=== PATIENT | female | born 1965 | race Two or more races ===

== ENCOUNTER 2023-01-28 22:56 | Inpatient (IN) | payer MEDICAID, OTHER ==
[~2023-01-28] VITALS: Ht 175.3 cm; Wt 45.6 kg
[2023-01-29] MEDS ORDERED: HYDROcodone-ACET 10/325MG TAB PO ONE (00:45)
[2023-01-29] MEDS ORDERED: ONDANSETRON ODT 4 MG TAB PO ONE (00:45)
[2023-01-29 01:16] LABS: Hematocrit 32.8 % (36.0-46.0); Hemoglobin 11.2 g/dL (12.2-16.2); Mean Corpuscular Hemoglobin 30.2 pg (28.0-32.0); Mean Corpuscular Hgb Conc. 34.1 g/dL (32.0-36.0); Mean Corpuscular Volume 88.4 fL (80.0-100.0); Red Blood Cells 3.71 10^6/uL (4.0-5.20); Red Cell Distribution Width 13.4 % (11.8-14.3); White Blood Cell 5.5 10^3/uL (4.4-10.8)
[2023-01-29 01:30] LABS: Alanine Aminotransferase 10 U/L (7-40); Albumin 4.6 g/dL (3.2-4.8); Alkaline Phosphatase 90 U/L (46-116); Anion Gap 2.2 (5-15); Aspartate Aminotransferase < 8 U/L (13-40); BUN/Creatinine Ratio 13.4 (10.0-20.0); Bilirubin, Total 0.2 mg/dL (0.2-1.0); Blood Alcohol < 3.0 mg/dL (<10); Blood Urea Nitrogen 9 mg/dL (9-23); CRP High Sensitivity 0.14 mg/dL (<1.0); Calcium 9.7 mg/dL (8.5-10.1); Carbon Dioxide 26.8 mmol/L (20-30); Chloride 109 mmol/L (98-107); Glucose 85 mg/dL (74-106); Lipase 59 U/L (12-53); Potassium 3.6 mmol/L (3.5-5.1); Sodium 138 mmol/L (136-145); Total Protein 8.3 g/dL (5.7-8.2)
[2023-01-29 01:31] LABS: Band Neutrophils % (manual) 0; Basophils % (manual) 0 (0.0-2.0); Blast Cells 0; Eosinophils % (manual) 0 (0-7); Metamyelocytes % 0; Myelocytes % 0; Promyelocytes % 0; Reactive Lymphocytes 0
[2023-01-29 01:33] LABS: INR 1.01 (0.9-1.15); Partial Thromboplastin Time 28.7 SEC (24.5-34.5); Prothrombin Time 10.6 sec (9.3-11.8)
[2023-01-29 03:52] LABS: Lymphocytes % (manual) 59 (10.0-50.0); Monocytes % (manual) 7 (0-12); Platelet Estimate Adequate
[2023-01-29] MEDS ORDERED: MORPHINE SULFATE 4 MG/ML SYR/VIAL IM ONE (06:45)
[2023-01-29] MEDS ORDERED: ACETAMINOPHEN 325 MG TAB PO PRN (08:30)
[2023-01-29] MEDS ORDERED: MORPHINE SULFATE INJ 2 MG/ml SYRG IV PRN (08:30)
[2023-01-29] MEDS ORDERED: NITROGLYCERIN 0.4 MG SL TAB SL PRN (08:30)
[2023-01-29] MEDS: HYDROcodone-ACET 5/325MG TAB PO PRN (09:49)
[2023-01-29] MEDS: D5W/SOD CHLO 0.9% 1,000 ML IV SCH (12:16)
[2023-01-29 12:36] LABS: Basophils # (auto) 0.2 10 ^3/uL (0-0.2); Basophils % (auto) 5.2 % (0.0-2.0); Eosinophils # (auto) 0 10 ^3/uL (0-0.8); Eosinophils % (auto) 0.5 % (0.0-7.0); Hematocrit 32.3 % (36.0-46.0); Hemoglobin 10.5 g/dL (12.2-16.2); Lymphocytes # (auto) 1.9 10 ^3/uL (0.4-5.4); Lymphocytes % (auto) 46.7 % (10.0-50.0); Mean Corpuscular Hemoglobin 28.9 pg (28.0-32.0); Mean Corpuscular Hgb Conc. 32.6 g/dL (32.0-36.0); Mean Corpuscular Volume 88.5 fL (80.0-100.0); Monocytes # (auto) 0.2 10 ^3/uL (0-1.3); Monocytes % (auto) 6.2 % (0.0-12.0); Neutrophils # (auto) 1.7 10 ^3/uL (1.6-8.6); Neutrophils % (auto) 41.4 % (37.0-80.0); Nucleated Red Blood Cells % 0.2 %; Red Blood Cells 3.65 10^6/uL (4.0-5.20); Red Cell Distribution Width 13.3 % (11.8-14.3)
[2023-01-29 13:00] VITALS: PULSE 60; RESP 18; O2SAT 99
[2023-01-29 13:06] LABS: Albumin 4.4 g/dL (3.2-4.8); Alkaline Phosphatase 89 U/L (46-116); Anion Gap 3.4 (5-15); Aspartate Aminotransferase 8 U/L (13-40); BUN/Creatinine Ratio 14.5 (10.0-20.0); Blood Urea Nitrogen 8 mg/dL (9-23); Calcium 9.5 mg/dL (8.5-10.1); Carbon Dioxide 24.6 mmol/L (20-30); Chloride 111 mmol/L (98-107); Glucose 88 mg/dL (74-106); Potassium 3.5 mmol/L (3.5-5.1); Sodium 139 mmol/L (136-145)
[2023-01-29 13:07] LABS: Bilirubin, Total 0.2 mg/dL (0.2-1.0); Total Protein 7.9 g/dL (5.7-8.2)
[2023-01-29 13:09] LABS: Alanine Aminotransferase < 9 U/L (7-40)
[2023-01-29] MEDS: ONDANSETRON HCL 4 MG/2 ML VIAL IV PRN (14:23)
[2023-01-29] MEDS: MORPHINE SULFATE INJ 2 MG/ml SYRG IV PRN ×2 (14:24→18:50)
[2023-01-29 16:41] VITALS: BP 158/84; PULSE 53; RESP 19; TEMP 98.2; O2SAT 100
[2023-01-29] MEDS: LORazepam 2MG/ML-1ML VIAL IV PRN (21:22)
[2023-01-29] MEDS: FAMOTIDINE (10MG/ML) 2ML VL IV SCH (21:33)
[2023-01-29 22:00] VITALS: BP 161/83; PULSE 80; RESP 18; TEMP 97.6; O2SAT 98
[2023-01-30] MEDS: MORPHINE SULFATE INJ 2 MG/ml SYRG IV PRN ×5 (00:23→19:56)
[2023-01-30] MEDS: D5W/SOD CHLO 0.9% 1,000 ML IV SCH ×2 (03:18→12:13)
[2023-01-30] MEDS: LORazepam 2MG/ML-1ML VIAL IV PRN ×3 (03:22→21:30)
[2023-01-30 05:18] VITALS: BP 158/92; PULSE 64; RESP 18; TEMP 97.6; O2SAT 97
[2023-01-30] MEDS: hydrALAZINE HCL 20 MG/ML VL IV PRN ×2 (06:34→10:42)
[2023-01-30 09:00] VITALS: BP 160/88; PULSE 72; RESP 20; O2SAT 94
[2023-01-30 10:15] LABS: Basophils # (auto) 0 10 ^3/uL (0-0.2); Basophils % (auto) 1.2 % (0.0-2.0); Eosinophils # (auto) 0 10 ^3/uL (0-0.8); Eosinophils % (auto) 0.3 % (0.0-7.0); Hematocrit 33.2 % (36.0-46.0); Hemoglobin 10.9 g/dL (12.2-16.2); Lymphocytes # (auto) 1.1 10 ^3/uL (0.4-5.4); Lymphocytes % (auto) 28.5 % (10.0-50.0); Mean Corpuscular Hemoglobin 29.2 pg (28.0-32.0); Mean Corpuscular Hgb Conc. 32.9 g/dL (32.0-36.0); Mean Corpuscular Volume 88.9 fL (80.0-100.0); Monocytes # (auto) 0.3 10 ^3/uL (0-1.3); Monocytes % (auto) 6.6 % (0.0-12.0); Neutrophils # (auto) 2.5 10 ^3/uL (1.6-8.6); Neutrophils % (auto) 63.4 % (37.0-80.0); Nucleated Red Blood Cells % 0.1 %; Red Blood Cells 3.74 10^6/uL (4.0-5.20); Red Cell Distribution Width 13.3 % (11.8-14.3)
[2023-01-30 10:30] LABS: Albumin 4.2 g/dL (3.2-4.8); Alkaline Phosphatase 85 U/L (46-116); Anion Gap 4.5 (5-15); Aspartate Aminotransferase 12 U/L (13-40); Calcium 8.7 mg/dL (8.5-10.1); Carbon Dioxide 20.5 mmol/L (20-30); Chloride 116 mmol/L (98-107); Glucose 399 mg/dL (74-106); Potassium 3.1 mmol/L (3.5-5.1); Sodium 141 mmol/L (136-145)
[2023-01-30 10:31] LABS: Bilirubin, Total 0.4 mg/dL (0.2-1.0); Total Protein 7.6 g/dL (5.7-8.2)
[2023-01-30 10:33] LABS: Alanine Aminotransferase < 9 U/L (7-40); BUN/Creatinine Ratio 6.8 (10.0-20.0); Blood Urea Nitrogen < 5 mg/dL (9-23)
[2023-01-30] MEDS: FAMOTIDINE (10MG/ML) 2ML VL IV SCH ×2 (10:36→21:30)
[2023-01-30] MEDS: ENOXAPARIN SOD 40 MG/0.4 ML SYRINGE SC SCH (10:37)
[2023-01-30] MEDS: HYDROcodone-ACET 5/325MG TAB PO PRN (13:01)
[2023-01-30 13:12] VITALS: BP 151/96; PULSE 108; RESP 20; TEMP 99.1; O2SAT 96
[2023-01-30 16:47] VITALS: BP 177/102; PULSE 77; RESP 20; TEMP 98.2; O2SAT 98
[2023-01-30] MEDS: ONDANSETRON HCL 4 MG/2 ML VIAL IV PRN (20:00)
[2023-01-30 20:27] LABS: COVID19 ANTIGEN SOFIA FIA NEGATIVE (NEGATIVE)
[2023-01-30 20:30] LABS: Rapid Influenza A Negative (Negative); Rapid Influenza B Negative (Negative)
[2023-01-30 20:39] VITALS: BP 166/106; PULSE 105; RESP 20
[2023-01-30 22:00] VITALS: BP 166/106; PULSE 111; RESP 18; TEMP 97.1; O2SAT 100
[2023-01-31] VITALS (7 sets, daily range): BP systolic 159–184; BP diastolic 89–114; PULSE 79–140; RESP 18–22; TEMP 97.7–98.2; O2SAT 96–100
[2023-01-31] MEDS: D5W/SOD CHLO 0.9% 1,000 ML IV SCH ×2 (00:30→11:53)
[2023-01-31] MEDS: ONDANSETRON HCL 4 MG/2 ML VIAL IV PRN (01:31)
[2023-01-31] MEDS: MORPHINE SULFATE INJ 2 MG/ml SYRG IV PRN ×5 (01:31→19:42)
[2023-01-31] MEDS: hydrALAZINE HCL 20 MG/ML VL IV PRN (02:35)
[2023-01-31] MEDS: FAMOTIDINE (10MG/ML) 2ML VL IV SCH ×2 (10:22→22:25)
[2023-01-31] MEDS: ENOXAPARIN SOD 40 MG/0.4 ML SYRINGE SC SCH (10:23)
[2023-01-31 10:59] LABS: Urine Bacteria NONE SEEN /hpf (None Seen); Urine Blood 2+ /uL (Negative); Urine Clarity Clear (Clear); Urine Mucus FEW (None Seen); Urine Protein, UAD 3+ (Negative); Urine Specific Gravity 1.013 (1.001-1.035); Urine Urobilinogen Normal (Negative); Urine WBC 2 /hpf (0 - 5); Urine pH 6.5 (5.0-8.0)
[2023-01-31 11:00] LABS: Urine Color Straw (Yellow)
[2023-01-31 11:11] LABS: Amphetamine Screen, Urine Neg (NEGATIVE); Benzodiazephine Screen, Urine Neg (NEGATIVE)
[2023-01-31 11:12] LABS: Barbiturate Scree,Urine Neg (NEGATIVE); Cannabinoid Screen, Urine Pos (NEGATIVE); Cocaine Screen, Urine Neg (NEGATIVE); Opiate Scree,Urine Pos (NEGATIVE); Phencyclidine Screen, Urine Neg (NEGATIVE)
[2023-01-31] MEDS: POTASSIUM CHL 20MEQ/100ML 100 ML IV SCH ×2 (11:46→15:13)
[2023-01-31] MEDS: LOSARTAN POTASSIUM 50 MG TAB PO SCH (11:47)
[2023-01-31] MEDS: METOPROLOL TARTRATE 25 MG TAB PO SCH ×2 (11:47→22:28)
[2023-01-31] MEDS: LORazepam 2MG/ML-1ML VIAL IV PRN (22:31)
[2023-02-01] MEDS: MORPHINE SULFATE INJ 2 MG/ml SYRG IV PRN (02:59)
[2023-02-01 05:00] VITALS: BP 152/92; PULSE 55; RESP 20; TEMP 98.6; O2SAT 98
[2023-02-01] MEDS: D5W/SOD CHLO 0.9% 1,000 ML IV SCH ×2 (05:10→09:32)
[2023-02-01] MEDS: LORazepam 2MG/ML-1ML VIAL IV PRN (07:12)
[2023-02-01 08:00] VITALS: RESP 20; O2SAT 96
[2023-02-01] MEDS: LOSARTAN POTASSIUM 50 MG TAB PO SCH (08:55)
[2023-02-01] MEDS: FAMOTIDINE (10MG/ML) 2ML VL IV SCH (08:55)
[2023-02-01] MEDS: METOPROLOL TARTRATE 25 MG TAB PO SCH (08:55)
[2023-02-01] MEDS: ENOXAPARIN SOD 40 MG/0.4 ML SYRINGE SC SCH (08:56)
== END 2023-02-01 10:05 | disposition left against medical advice (07) | DRG 243 ==
LOC: ER 22:56 → EDBD 22:56 → OVERFLOW 01-29 08:21 → WEST WING 01-29 14:58 → EAST 01-29 17:20
PROVIDERS: ADMIT Nurse Practitioner Family; ATTEND Nurse Practitioner
PROC: 05HA33Z Insertion of Infusion Device into Left Brachial Vein, Percutaneous Approach (ICD-10-PCS; principal; 2023-01-29)
PROC: B54NZZA Ultrasonography of Left Upper Extremity Veins, Guidance (ICD-10-PCS; 2023-01-29)
DX: K21.9 Gastro-esophageal reflux disease without esophagitis (principal); R56.9 Unspecified convulsions; D64.9 Anemia, unspecified; I10 Essential (primary) hypertension; K82.8 Other specified diseases of gallbladder; F11.20 Opioid dependence, uncomplicated; E78.5 Hyperlipidemia, unspecified; F41.9 Anxiety disorder, unspecified; Z86.73 Personal history of transient ischemic attack (TIA), and cerebral infarction without residual deficits; Z96.643 Presence of artificial hip joint, bilateral; Z53.29 Procedure and treatment not carried out because of patient's decision for other reasons; L93.0 Discoid lupus erythematosus
CPT/HCPCS: 36415; 71045; 74176; 74181; 76705; 80053; 80307; 80320; 81001; 82010; 82542; 82962; 83605; 83690; 83735; 83880; 83930; 84484; 85007; 85025; 85027; 85610; 85730; 86141; 87426; 87804; 96372; G0378; J2405; J3480; J3490; J7042; J7060; Q0162

== ENCOUNTER 2024-05-25 19:39 | Inpatient (IN) | payer MEDICAID ==
[~2024-05-25] VITALS: Ht 170.2 cm; Wt 42.3 kg
[2024-05-25] MEDS: SODIUM CHLORIDE 0.9% 1,000 ML IVB ONE (20:00)
[2024-05-25] MEDS: ONDANSETRON HCL 4 MG/2 ML VIAL IV ONE (20:00)
[2024-05-25] MEDS: MORPHINE SULFATE 4 MG/ML SYR/VIAL IV ONE (20:00)
--- NOTE | 2024-05-25 20:06 | ED.PDOC ---
GI ASSESSMENT HPI Comments 58-year-old female who came to ER via EMS for abdominal pain. Per EMS patient was picked up at home, does have history of hypertension, seizures and CVA with right-sided residual. Patient has poor compliance to her medications. Noted for the past few hours patient has been having abdominal pain with episodes of nausea and vomiting. Blood pressure upon arrival was 211/111 mm Hg. Patient is a poor informant in no further information could be taken from her at this time Chief Complaint: Abdominal Pain Time Seen by MD: 20:06 Reviewed Notes: Nurses Notes, Application Development Liaison Notes Allergies: Coded Allergies: NO KNOWN ALLERGIES (Unverified , 01/29/23) Information Source: Patient, Emergency Med Personnel Mode of Arrival: EMS Timing: Hours Duration: Since onset Prehospital treatment: None Quality: Aching, Cramping Vomitus: Watery Stool: Normal Severity: Moderate Recent: None Recent Hx of: None Pain Location: Epigastric Modifying Factors: Nothing Associated sign and symptoms: Nausea, Vomiting, Abdominal Pain Past Medical History PAST MEDICAL HISTORY: Anxiety, CVA, High Lipids, HTN, Seizures Surgical History: Denies all surgeries Surgical History (Other): Bilateral hip surgery CHILD DEVELOPMENT DIRECTOR History: No Pertinent CHILD DEVELOPMENT DIRECTOR History Family History Family History: Reviewed,noncontributory to illness Social History Smoker: Non-Smoker Alcohol: Denies ETOH Use Drugs: Marijuana Lives In: Home Constitutional: denies: chills, diaphoresis, fatigue, fever, malaise, sweats, weakness, others EENTM: denies: blurred vision, double vision, ear bleeding, ear discharge, ear drainage, ear pain, ear ringing, eye pain, eye redness, hearing loss, mouth pain, mouth swelling, nasal discharge, nose bleeding, nose congestion, nose pain, photophobia, tearing, throat pain, throat swelling, voice changes, others Respiratory: denies: cough, hemoptysis, orthopnea, SOB at rest, shortness of breath, SOB with excertion, stridor, wheezing, others Cardiovascular: denies: chest pain, dizzy spells, diaphoresis, Dyspnea on exertion, edema, irregular heart beat, left arm pain, lightheadedness, palpitations, PND, syncope, others Gastrointestinal: reports: abdominal pain, nausea, vomiting; denies: abdomen distended, blood streaked bowels, constipated, diarrhea, dysphagia, difficulty swallowing, hematemesis, melena, poor appetite, poor fluid intake, rectal ble eding, rectal pain, others Genitourinary: denies: abnormal vagina bleeding, burning, dyspareunia, dysuria, flank pain, frequency, hematuria, incontinence, pain, , vagina discharge, urgency, others Neurological: denies: dizziness, fainting, headache, left sided numbness, left sided weakness, numbness, paresthesia, pre-existing deficit, right sided numbness, right sided weakness, seizure, speech problems, tingling, tremors, weakness, others Musculoskeletal: denies: back pain, gout, joint pain, joint swelling, muscle pain, muscle stiffness, neck pain, others Integumetry: denies: bruises, change in color, change in hair/nails, dryness, laceration, lesions, lumps, rash, wounds, others Allergic/Immunocompromised: denies: Difficulty Healing, Frequent Infections, Hives, Itching, others Hematologic/Lymphatic: denies: anemia, blood clots, easy bleeding, easy bruising, swollen glands, others Endocrine: denies: excessive hunger, excessive sweating, excessive thirst, excessive urination, flushing, intolerance to cold, intolerance to heat, unexplained weight gain, unexplained weight loss, others Psychiatric: denies: anxiety, bipolar disorder, depression, hopeless, panic disorder, schizophrenia, sleepless, suicidal, others Physical Exam General Appearance: No Apparent Distress, Normal HEENT: Normal ENT Inspection, Pharynx Normal, TMs Normal Neck: Full Range of Motion, Non-Tender, Normal, Normal Inspection Respiratory: Chest Non-Tender, Lungs Clear, No Accessory Muscle Use, No Respiratory Distress, Normal Breath Sounds Cardiovascular: No Edema, No JVD, No Murmur, No Gallop, Normal Peripheral Pulses, Regular Rate/Rhythm Breast Exam: Deferred Gastrointestinal: No Organomegaly, Non Tender, No Pulsatile Mass, Normal Bowel Sounds, Soft Genitalia: Deferred Pelvic: Deferred Rectal: Deferred Extremities: No calf tenderness, Normal capillary refill, Normal inspection, Normal range of motion, Non-tender, No pedal edema Musculoskeletal : Apperance: Normal Neurologic: Alert, co director II-XII nml as Tested, No Motor Deficits, Normal Affect, Normal Mood, No Sensory Deficits Cerebellar Function: Normal Reflexes: Normal Skin: Dry, Normal Color, Warm Lymphatic: No Adenopathy Was a procedure done? Was a procedure done?: No GI differential Dx Differential Diagnosis: Diverticular disease, Gastritis/PUD, Gastroenteritis, Pancreatitis, UTI, Urolithiasis, Food Poisoning X-Ray, Labs, Meds, VS Vital Signs Date Time Temp Pulse Resp B/P (MAP) Pulse Ox O2 Delivery O2 Flow Rate FiO2 05/26/24 01:00 59 14 201/107 05/25/24 23:54 98.9 60 29 200/111 (140) 100 98.9 05/25/24 20:00 108 24 201/100 05/25/24 19:39 97.9 68 16 211/111 (144) 98 Lab Test 05/25/24 20:27 Range/Units White Blood Count 7.6 4.4-10.8 10^3/uL Red Blood Count 4.39 4.0-5.20 10^6/uL Hemoglobin 13.2 12.2-16.2 g/dL Hematocrit 40.3 36.0-46.0 % Mean Corpuscular Volume 91.7 80.0-100.0 fL Mean Corpuscular Hemoglobin 30.2 28.0-32.0 pg Mean Corpuscular Hemoglobin Concent 32.9 32.0-36.0 g/dL Red Cell Distribution Width 12.9 11.8-14.3 % Platelet Count 136 L 140-450 10^3/uL Mean Platelet Volume 10.7 6.9-10.8 fL Neutrophils (%) (Auto) 73.7 37.0-80.0 % Lymphocytes (%) (Auto) 20.7 10.0-50.0 % Monocytes (%) (Auto) 5.3 0.0-12.0 % Eosinophils (%) (Auto) 0.1 0.0-7.0 % Basophils (%) (Auto) 0.2 0.0-2.0 % Neutrophils # (Auto) 5.6 1.6-8.6 10 ^3/uL Lymphocytes # (Auto) 1.6 0.4-5.4 10 ^3/uL Monocytes # (Auto) 0.4 0-1.3 10 ^3/uL Eosinophils # (Auto) 0 0-0.8 10 ^3/uL Basophils # (Auto) 0 0-0.2 10 ^3/uL Nucleated Red Blood Cells 0.1 % Sodium Level 140 136-145 mmol/L Potassium Level 3.3 L 3.5-5.1 mmol/L Chloride Level 112 H 98-107 mmol/L Carbon Dioxide Level 23 20-31 mmol/L Anion Gap 5 5-15 Blood Urea Nitrogen 7 L 9-23 mg/dL Creatinine 0.77 0.550-1.02 mg/dL Glomerular Filtration Rate Calc 88 >90 mL/min BUN/Creatinine Ratio 9.1 L 10.0-20.0 Serum Glucose 116 H 74-106 mg/dL Calcium Level 10.1 8.7-10.4 mg/dL Total Bilirubin 0.2 0.2-1.0 mg/dL Aspartate Amino Transferase (AST) 14 13-40 U/L Alanine Aminotransferase (ALT) 10 7-40 U/L Alkaline Phosphatase 97 46-116 U/L Total Protein 8.6 H 5.7-8.2 g/dL Albumin 5.0 H 3.2-4.8 g/dL Lipase 41 12-53 U/L Current Medications Medications (Trade) Dose Ordered Sig/Wilber Route Start Time Stop Time Status Last Admin Ondansetron HCl (Zofran) 4 mg ONCE ONCE IV 05/25/24 20:00 05/25/24 20:01 DC 05/25/24 20:00 Sodium Chloride 1,000 ml @ 1,000 mls/hr Q1H ONCE IVB 05/25/24 20:00 05/25/24 20:59 DC 05/25/24 20:00 Morphine Sulfate 4 mg ONCE ONCE IV 05/25/24 20:00 05/25/24 20:01 DC 05/25/24 20:00 Time of 1ST Reevaluation: 19:59 Reevaluation 1ST: Unchanged Time of 2ND Reevaluation: 04:10 Reevaluation 2ND: Unchanged Patient Education/Counseling: Diagnosis, Treatment Family Education/Counseling: No Family Present Departure 1 Departure Time of Disposition: 04:10 (CT worrisome, potential appendicitis, will admit for supportive care and further workup) Impression: Primary Impression: Intractable abdominal pain Disposition: 09 ADMITTED INPATIENT Admit to: Med Surg Condition: Guarded Critical Care Note Critical Care Time?: Yes (35 min-critical care time only) Critical care comment: Hypertensive urgency Stability Stability form required: No Heart Score Heart Score: Heart Score Response (Comments) Value History N/A 0 EKG N/A 0 Age N/A 0 Risk Factors N/A 0 Troponin N/A 0 Total 0 I personally scribed for KARUNA ORTA MD ([email or web address]) on 05/25/24 at 20:06. Electronically submitted by Damion Best ([email or web address]). KARUNA ORTA MD May 25, 2024 20:06
[2024-05-25 20:48] LABS: Basophils # (auto) 0 10 ^3/uL (0-0.2); Basophils % (auto) 0.2 % (0.0-2.0); Eosinophils # (auto) 0 10 ^3/uL (0-0.8); Eosinophils % (auto) 0.1 % (0.0-7.0); Hematocrit 40.3 % (36.0-46.0); Hemoglobin 13.2 g/dL (12.2-16.2); Lymphocytes # (auto) 1.6 10 ^3/uL (0.4-5.4); Lymphocytes % (auto) 20.7 % (10.0-50.0); Mean Corpuscular Hemoglobin 30.2 pg (28.0-32.0); Mean Corpuscular Hgb Conc. 32.9 g/dL (32.0-36.0); Mean Corpuscular Volume 91.7 fL (80.0-100.0); Monocytes # (auto) 0.4 10 ^3/uL (0-1.3); Monocytes % (auto) 5.3 % (0.0-12.0); Neutrophils # (auto) 5.6 10 ^3/uL (1.6-8.6); Neutrophils % (auto) 73.7 % (37.0-80.0); Nucleated Red Blood Cells % 0.1 %; Platelet Count (auto) 136 10^3/uL (140-450); Red Blood Cells 4.39 10^6/uL (4.0-5.20); Red Cell Distribution Width 12.9 % (11.8-14.3); White Blood Cell 7.6 10^3/uL (4.4-10.8)
[2024-05-25 21:11] LABS: Alanine Aminotransferase 10 U/L (7-40); Alkaline Phosphatase 97 U/L (46-116); Anion Gap 5 (5-15); Aspartate Aminotransferase 14 U/L (13-40); BUN/Creatinine Ratio 9.1 (10.0-20.0); Calcium 10.1 mg/dL (8.7-10.4); Carbon Dioxide 23 mmol/L (20-31); Lipase 41 U/L (12-53); Sodium 140 mmol/L (136-145)
[2024-05-25 21:38] LABS: Bilirubin, Total 0.2 mg/dL (0.2-1.0); Blood Urea Nitrogen 7 mg/dL (9-23); Chloride 112 mmol/L (98-107); Glucose 116 mg/dL (74-106); Potassium 3.3 mmol/L (3.5-5.1); Total Protein 8.6 g/dL (5.7-8.2)
[2024-05-25] MEDS: IOHEXOL 300 MG/ML 100ML BOTTLE IJ ONE (22:05)
--- NOTE | 2024-05-26 03:57 | DVH ---
Critical Findings Examination: ABPLIV CLINICAL INDICATION: diffuse abd pain, vomiting COMPARISON: None. CONTRAST USED: Intravenous. TECHNIQUE: A post-contrast CT study of the abdomen and pelvis is performed. The examination was per formed with [address] scan was done according to ALARA (As Low as Reasonably Achievable). Multiplanar reconstructions were obtained. FINDINGS: CT ABDOMEN Lung Bases: Mild subpleural fibrosis is noted in the right lower lobe. No focal infiltrates or pleu ral effusion. Liver: Fatty infiltration of the liver is noted. The portal venous radicles are normal. There is n o intrahepatic biliary radicle dilatation. Spleen: The spleen is normal in size and does not show any focal abnormality. Gallbladder: The gallbladder is normal and reveals no intrinsic abnormality. The common bile duct i s not dilated. Pancreas: The pancreas is normal in size and shape. A prominent pancreatic duct measuring 4 mm is n oted. The peripancreatic fat-planes are normal. Retroperitoneum: Both adrenal glands are normal in size and morphology. There is no significant ret roperitoneal lymphadenopathy. The kidneys are normal in size, with cortical cysts seen in both kidne ys, the largest measuring 17 mm in the right kidney and 33 mm in the left kidney (Bosniak type I). N o hydronephrosis or renal calculi. Stomach: The stomach is unremarkable. There is no ascites. Skeletal System: Bilateral total hip replacement implants are seen, with suboptimal evaluation of th e pelvis. Dorsolumbar spine and the pelvic bone appear unremarkable. Vessels: Aorta, IVC, and the mesenteric vessels appear unremarkable. Atherosclerotic aortic arteria l calcification is noted. CT PELVIS Appendix: An elongated tubular structure measuring 4.5 cm and 13 mm in thickness is seen in the righ t iliac fossa, extending from the cecum. This may represent an inflamed appendix. Its distal end is inadequately visualized due to artifact. There is no appendicolith within. Colon: The ascending, transverse, descending, sigmoid colon and rectum are unremarkable. Bladder: The urinary bladder is unremarkable. Pelvic Organs: The uterus is unremarkable. No pelvic lymphadenopathy is identified. No abnormal fl uid collection is seen. IMPRESSION: 1. An elongated tubular structure measuring 4.5 cm and 13 mm in thickness is seen in the right iliac fossa, extending from the cecum. This may represent an inflamed appendix. Its distal end is inadeq uately visualized due to artifact. There is no appendicolith within. 2. Fatty infiltration of the liver. 3. Prominent pancreatic duct measuring 4 mm. 4. Cortical cysts in both kidneys, the largest measuring 17 mm in the right kidney and 33 mm in the left kidney (Bosniak type I). 5. Bilateral total hip replacement implants, with suboptimal evaluation of the pelvis. 6. Mild subpleural fibrosis in the right lower lobe. Electronically Signed 05/26/2024 03:56 Darin Huerta
[2024-05-26 04:21] VITALS: PULSE 59; RESP 25; O2SAT 99
[2024-05-26] MEDS: ONDANSETRON HCL 4 MG/2 ML VIAL IV ONE (06:00)
[2024-05-26] MEDS: HYDROmorphone HCL 2 MG/ML VL/or syr IV ONE ×2 (06:02→08:37)
[2024-05-26 08:00] VITALS: PULSE 63; RESP 15; O2SAT 99
[2024-05-26] MEDS ORDERED: MORPHINE SULFATE INJ 2 MG/ml SYRG IV PRN (09:00)
[2024-05-26] MEDS ORDERED: NITROGLYCERIN 0.4 MG SL TAB SL PRN (09:00)
[2024-05-26] MEDS ORDERED: ONDANSETRON HCL 4 MG/2 ML VIAL IV PRN (09:00)
--- NOTE | 2024-05-26 10:20 | DVHINCON2 ---
Date of service: May 26, 2024 Family History: Diabetes mellitus G8 MOTHER FH: CHF (congestive heart failure) G8 MOTHER FH: breast cancer G8 MOTHER Allergies: Coded Allergies: NO KNOWN ALLERGIES (Unverified , 01/29/23) Current Medications Current Medications Medications (Trade) Dose Ordered Sig/Wilber Route PRN Reason Start Time Stop Time Status Last Admin Acetaminophen/ Hydrocodone Bitart ([place] 5/325MG Tab) 1 tab Q4HP PRN PO MODERATE PAIN (4-6 PAIN SCALE) 05/26/24 09:00 Ondansetron HCl (Zofran) 4 mg Q4HP PRN IV NAUSEA / VOMITING 05/26/24 09:00 Enoxaparin Sodium (Lovenox) 40 mg DAILY SC 05/26/24 10:00 Acetaminophen (Tylenol Tablet) 650 mg Q6HP PRN PO PAIN SCALE 1-3 OR TEMP>100.4 05/26/24 09:00 Morphine Sulfate 2 mg Q4HPRN PRN IV SEVERE PAIN (7-10 PAIN SCALE) 05/26/24 09:00 Nitroglycerin (Ntrostat Sublingual) 0.4 mg Q5MINP PRN SL FOR CHEST PAIN 05/26/24 09:00 Morphine Sulfate 2 mg Q30M PRN IV FOR CHEST PAIN 05/26/24 09:00 Piperacillin Sod/ Tazobactam Sod 100 ml @ 25 mls/hr Q8H IV 05/26/24 12:00 Clopidogrel Bisulfate (Plavix) 75 mg DAILY PO 05/26/24 10:00 Levetiracetam (Keppra Tablet) 1,000 mg BID PO 05/26/24 10:00 Gabapentin (Neurontin Capsule) 300 mg TID PO 05/26/24 14:00 Pantoprazole Sodium (Protonix) 40 mg DAILY IV 05/26/24 10:00 Vital Signs Vital Signs Date Time Temp Pulse Resp B/P (MAP) Pulse Ox O2 Delivery O2 Flow Rate FiO2 05/26/24 09:07 86 15 115/85 05/26/24 09:00 99 05/26/24 08:00 99.2 99.2 05/26/24 04:21 Room Air* 0 21 Labs/Diagnostic Data Labs Test 05/25/24 20:27 Range/Units White Blood Count 7.6 4.4-10.8 10^3/uL Red Blood Count 4.39 4.0-5.20 10^6/uL Hemoglobin 13.2 12.2-16.2 g/dL Hematocrit 40.3 36.0-46.0 % Mean Corpuscular Volume 91.7 80.0-100.0 fL Mean Corpuscular Hemoglobin 30.2 28.0-32.0 pg Mean Corpuscular Hemoglobin Concent 32.9 32.0-36.0 g/dL Red Cell Distribution Width 12.9 11.8-14.3 % Platelet Count 136 L 140-450 10^3/uL Mean Platelet Volume 10.7 6.9-10.8 fL Neutrophils (%) (Auto) 73.7 37.0-80.0 % Lymphocytes (%) (Auto) 20.7 10.0-50.0 % Monocytes (%) (Auto) 5.3 0.0-12.0 % Eosinophils (%) (Auto) 0.1 0.0-7.0 % Basophils (%) (Auto) 0.2 0.0-2.0 % Neutrophils # (Auto) 5.6 1.6-8.6 10 ^3/uL Lymphocytes # (Auto) 1.6 0.4-5.4 10 ^3/uL Monocytes # (Auto) 0.4 0-1.3 10 ^3/uL Eosinophils # (Auto) 0 0-0.8 10 ^3/uL Basophils # (Auto) 0 0-0.2 10 ^3/uL Nucleated Red Blood Cells 0.1 % Sodium Level 140 136-145 mmol/L Potassium Level 3.3 L 3.5-5.1 mmol/L Chloride Level 112 H 98-107 mmol/L Carbon Dioxide Level 23 20-31 mmol/L Anion Gap 5 5-15 Blood Urea Nitrogen 7 L 9-23 mg/dL Creatinine 0.77 0.550-1.02 mg/dL Glomerular Filtration Rate Calc 88 >90 mL/min BUN/Creatinine Ratio 9.1 L 10.0-20.0 Serum Glucose 116 H 74-106 mg/dL Calcium Level 10.1 8.7-10.4 mg/dL Total Bilirubin 0.2 0.2-1.0 mg/dL Aspartate Amino Transferase (AST) 14 13-40 U/L Alanine Aminotransferase (ALT) 10 7-40 U/L Alkaline Phosphatase 97 46-116 U/L Total Protein 8.6 H 5.7-8.2 g/dL Albumin 5.0 H 3.2-4.8 g/dL Lipase 41 12-53 U/L Assessment 58 year old cachectic female, with great difficulty communicating due to aphasia, says she had a heart attack, stroke, lupus now admitted with abdominal pain and CT findings of "TUBULAR STRUCTURE" in the RLQ of her abdomen, her white count is normal and she is afebrile, she was severely hypertensive on admission, needs cardiology evaluation, will get ultrasound of abdomen and pelvis. Plan discussed with: Patient JUAN KENNY MD May 26, 2024 10:20
[2024-05-26] MEDS: PANTOPRAZOLE 40 MG/10 ML VIAL INJ IV SCH (11:04)
[2024-05-26] MEDS: HYDROcodone-ACET 5/325MG TAB PO PRN (11:05)
[2024-05-26] MEDS: CLOPIDOGREL BISULFATE 75 MG TAB PO SCH (11:05)
[2024-05-26] MEDS: levETIRAcetam 500 MG TAB PO SCH (11:05)
[2024-05-26] MEDS: PIPERACILLIN-TAZOB 3.375GM 100 ML IV SCH (11:06)
[2024-05-26] MEDS: ENOXAPARIN SOD 40 MG/0.4 ML SYRINGE SC SCH (11:06)
--- NOTE | 2024-05-26 11:59 | DVH ---
INDICATION: r/o appendicitis TECHNIQUE: Graded compression technique along with Multiple real-time sonographic images were obtain ed for evaluation of the right lower quadrant. FINDINGS: Appendix measures 6cm . IMPRESSION: 1. Findings concerning for acute appendicitis.
--- NOTE | 2024-05-26 13:15 | DVH ---
EXAM: XY CHEST XRAY 1 VIEW TECHNIQUE: Single frontal chest radiograph CLINICAL HISTORY: chest pain COMPARISON: XY CHEST XRAY 1 VIEW on DOS: 01/29/23 Findings/Impression: Frontal chest radiograph demonstrates no acute osseous or superficial soft tissue abnormalities. The trachea is midline. The cardiac silhouette and mediastinum are within normal limits. No pneumothorax, pleural effusions, or consolidations.
--- NOTE | 2024-05-26 13:36 | DVHSR ---
APPROVED REPORT EXAM: Two-dimensional and M-mode echocardiogram with Doppler and color Doppler. Blood Pressure: 165/108 mmHg INDICATION R/O CHF RISK FACTORS Height: 5' 5", Weight: 83 DIMENSIONS LVDd3.7 (3.8-5.7cm)LA (2D)4.1 (1.9-4.0cm)Aortic Root2.9 (2.0-3.7cm) LVDs2.3 (2.5-4.0cm)LA (MM) (1.9-4.0cm)Aortic Cusp Exc1.6 (1.5-2.0cm) EF (%) 69.0 (55-70%)Rt. Atrium4.0 (1.9-4.0cm)Asc. Aorta cm IVSd1.0 (0.7-1.1cm)RV (D) (1.8-2.4cm) PWd1.0 (0.7-1.1cm) Mitral Valve MitralMitral Stenosis E wave0.90m/sMV Mean GR.mmHg A wave1.00m/sMV Peak GR.mmHg E/A ratio0.92D MVAcm2 Aortic Valve Aortic ValveAortic Stenosis V10.90m/Lewis Mean GR.2mmHg V21.10m/Lewis Peak GR.5mmHg LVOT Diameter2.1 (1.8-2.4cm)Doppler AVA2.83cm2 Pulmonic Valve V20.90m/s Conclusion Left ventricle: Left ventricle is normal-sized with normal systolic function. Borderline concentric left ventricular hypertrophy was seen. There was no wall motion abnormality. LVEF was 65-70%. Right ventricle is normal-sized with normal systolic function. Both atria were minimally dilated. Aortic valve: Aortic valve was trileaflet. There was no aortic stenosis/insufficiency. There was tr ivial mitral/tricuspid regurgitation. There was trivial/physiologic pulmonary valve insufficiency. As there was no good tricuspid regurgitation jet, right ventricular systolic pressure could not be es timated. There was no echocardiographic evidence for pulmonary hypertension. There was trivial pericardial effusion.
--- NOTE | 2024-05-26 13:44 | DVHINCON2 ---
Date of service: May 26, 2024 History of Present Illness HPI Patient is 58-year-old female who presented with abdominal pain/nausea/vomiting. While arriving to emergency room, blood pressure was 211/111. There has been some question about appendicitis. Cardiology is involved for cardiac aspects of care and to provide risk stratification prior to abdominal surgery. Patient herself is very poor historian and can not provide history. She looks cachectic and with poor functional status. 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 Patient herself mentions that she had heart attack over a decade ago. She denies following up with Cardiology as outpatient. No recent chest pain. 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 Relevant findings as per above and as per HPI. Otherwise negative. H&P Exam Vital Signs Vital Signs Date Time Temp Pulse Resp B/P (MAP) Pulse Ox O2 Delivery O2 Flow Rate FiO2 05/26/24 12:00 108 21 145/111 (122) 05/26/24 10:00 99 05/26/24 08:00 99.2 99.2 05/26/24 04:21 Room Air* 0 21 General Appeara: Cachetic Eye Exam: bilateral eye PERRL Mouth: Normal Inspection Pulmonary/Respiratory: Rhonci Cardiovascular/Chest: Normal inspection Peripheral Pulses: 2+ carotid (R), 2+ carotid (L), 2+ femoral (R), 2+ femoral (L), 2+ dorsalis pedis (R), 2+ dorsalis pedis (L), 2+ Radial (R), 2+ Radial (L) Abdominal Exam: Normal bowel sounds Labs/Xrays Labs Test 05/25/24 20:27 Range/Units White Blood Count 7.6 4.4-10.8 10^3/uL Red Blood Count 4.39 4.0-5.20 10^6/uL Hemoglobin 13.2 12.2-16.2 g/dL Hematocrit 40.3 36.0-46.0 % Mean Corpuscular Volume 91.7 80.0-100.0 fL Mean Corpuscular Hemoglobin 30.2 28.0-32.0 pg Mean Corpuscular Hemoglobin Concent 32.9 32.0-36.0 g/dL Red Cell Distribution Width 12.9 11.8-14.3 % Platelet Count 136 L 140-450 10^3/uL Mean Platelet Volume 10.7 6.9-10.8 fL Neutrophils (%) (Auto) 73.7 37.0-80.0 % Lymphocytes (%) (Auto) 20.7 10.0-50.0 % Monocytes (%) (Auto) 5.3 0.0-12.0 % Eosinophils (%) (Auto) 0.1 0.0-7.0 % Basophils (%) (Auto) 0.2 0.0-2.0 % Neutrophils # (Auto) 5.6 1.6-8.6 10 ^3/uL Lymphocytes # (Auto) 1.6 0.4-5.4 10 ^3/uL Monocytes # (Auto) 0.4 0-1.3 10 ^3/uL Eosinophils # (Auto) 0 0-0.8 10 ^3/uL Basophils # (Auto) 0 0-0.2 10 ^3/uL Nucleated Red Blood Cells 0.1 % Sodium Level 140 136-145 mmol/L Potassium Level 3.3 L 3.5-5.1 mmol/L Chloride Level 112 H 98-107 mmol/L Carbon Dioxide Level 23 20-31 mmol/L Anion Gap 5 5-15 Blood Urea Nitrogen 7 L 9-23 mg/dL Creatinine 0.77 0.550-1.02 mg/dL Glomerular Filtration Rate Calc 88 >90 mL/min BUN/Creatinine Ratio 9.1 L 10.0-20.0 Serum Glucose 116 H 74-106 mg/dL Calcium Level 10.1 8.7-10.4 mg/dL Total Bilirubin 0.2 0.2-1.0 mg/dL Aspartate Amino Transferase (AST) 14 13-40 U/L Alanine Aminotransferase (ALT) 10 7-40 U/L Alkaline Phosphatase 97 46-116 U/L Total Protein 8.6 H 5.7-8.2 g/dL Albumin 5.0 H 3.2-4.8 g/dL Lipase 41 12-53 U/L Assessment/Plan Plan Patient is 58-year-old female who presented with abdominal pain/nausea/vomiting. While arriving to emergency room, blood pressure was 211/111. There has been some question about appendicitis. Cardiology is involved for cardiac aspects of care and to provide risk stratification prior to abdominal surgery. Patient herself is very poor historian and can not provide history. She looks cachectic and with poor functional status. 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 Patient herself mentions that she had heart attack over a decade ago. She denies following up with Cardiology as outpatient. No recent chest pain. Cachectic lady, lying flat in bed. Not in acute distress. Mucosa is dry and pink. No JVD. No carotid bruit. Lungs reveal scattered rhonchi. Not using accessory muscles of breathing. Cardiac: Regular, no thrill/gallop. Systolic murmur 1/6 in the apex is heard. Abdomen is firm. Extremities do not reveal edema. 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 Creatinine: 0.77 Potassium: 3.3 CT of the abdomen and pelvis revealed: 1. An elongated tubular structure measuring 4.5 cm and 13 mm in thickness is seen in the right iliac fossa, extending from the cecum. This may represent an inflamed appendix. Its distal end is inadequately visualized due to artifact. There is no appendicolith within. 2. Fatty infiltration of the liver. 3. Prominent pancreatic duct measuring 4 mm. 4. Cortical cysts in both kidneys, the largest measuring 17 mm in the right kidney and 33 mm in the left kidney (Bosniak type I). 5. Bilateral total hip replacement implants, with suboptimal evaluation of the pelvis. 6. Mild subpleural fibrosis in the right lower lobe. Chest x-ray reported: Frontal chest radiograph demonstrates no acute osseous or superficial soft tissue abnormalities. The trachea is midline. The cardiac silhouette and mediastinum are within normal limits. No pneumothorax, pleural effusions, or consolidations. Appendix ultrasound reported: IMPRESSION: 1. Findings concerning for acute appendicitis. Telemetry reveals sinus rhythm Echocardiogram revealed: Left ventricle: Left ventricle is normal-sized with normal systolic function. Borderline concentric left ventricular hypertrophy was seen. There was no wall motion abnormality. LVEF was 65-70%. Right ventricle is normal-sized with normal systolic function. Both atria were minimally dilated. Aortic valve: Aortic valve was trileaflet. There was no aortic stenosis/insufficiency. There was trivial mitral/tricuspid regurgitation. There was trivial/physiologic pulmonary valve insufficiency. As there was no good tricuspid regurgitation jet, right ventricular systolic pressure could not be estimated. There was no echocardiographic evidence for pulmonary hypertension. There was trivial pericardial effusion. Patient is a 58-year-old female who presented with abdominal pain/nausea and vomiting. CT of the abdomen questions appendicitis. Presentation is not in favor of acute coronary syndrome. Cardiology etiology for presentation is not considered at this point. Does have baseline poor functional capacity. There is no recent cardiac episodes. Echocardiogram revealed could left ventricular systolic function and no specific valvular disease. Abdominal pain Nausea/vomiting Questionable appendicitis in CT scan Fatty liver Old history of CVA with right hemiparesis Poor functional capacity Hypertension Hyperlipidemia Seizure disorder Opioid dependence Cachectic lady Cardiac suggestion for management: Managed on telemetry Follow-up electrolytes and kidney function tests and correct abnormalities Keep potassium above 4 and magnesium above 2 Fluid resuscitation is advised GI evaluation is suggested Surgical evaluation is suggested Cardiac-monsivais, the patient is moderate risk patient for moderate risk abdominal surgery. Cardiac-monsivais, you can proceed with abdominal surgery under appropriate intra and postoperative hemodynamic monitoring. Avoid hypotension Further evaluation and management depends on the above and clinical course Thank you for consultation A total of 75 minutes was spent reviewing the patient record, examining the patient, making a diagnostic and therapeutic plan, discussing this plan with medical personnel, following up on diagnostic studies and following the patient for clinical stability excluding any and all procedures. At least 50% of this time was spent in direct, [id number] contact. Thank you for allowing me to participate in this patient's care. Further recommendations will depend on patient's clinical course. Please do not hesitate to contact me if you have any questions or concerns. This medical document was created using electronic medical record system with [employer] dictation system. Although this document has been carefully reviewed, there may still be some phonetic and typographical errors. These areas are purely typographical due to the imperfection of the software programs, and do not reflect any compromise in the patient's medical care. Plan discussed with: Other (Nurse) AKBAR ZAVALA MD May 26, 2024 13:43
[2024-05-26] MEDS: GABAPENTIN 300 MG CAP PO SCH (14:33)
--- NOTE | 2024-05-26 16:25 | DVHHP2 ---
History of Present Illness History of Present Illness 58-year-old female with a history of CVA, hypertension, seizures presents to the emergency room for nausea vomiting and acute abdominal pain. Patient is a poor historian Review of Systems Constitutional: No: Fever, Chills, Sweats, Weakness, Malaise, Other Respiratory: No: Cough, Dry, Shortness of breath, SOB with excertion, Wheezing, Hemoptysis, Pleuritic Pain, Sputum, Wheezing, Other Cardiovascular: No: Chest Pain, Palpitations, Orthopnea, Paroxysmal Noc. Dyspnea, Edema, Lt Headedness, Other Gastrointestinal: Nausea, Vomiting, Abdominal Pain Allergies: Coded Allergies: NO KNOWN ALLERGIES (Unverified , 01/29/23) Medications Current Medications Medications Dose Ordered Sig/Wilber Route Start Time Stop Time Status Last Admin Dose Admin Acetaminophen/ Hydrocodone Bitart 1 tab Q4HP PRN PO 05/26/24 09:00 05/26/24 16:12 1 TAB Ondansetron HCl 4 mg Q4HP PRN IV 05/26/24 09:00 Enoxaparin Sodium 40 mg DAILY SC 05/26/24 10:00 05/26/24 11:06 40 MG Acetaminophen 650 mg Q6HP PRN PO 05/26/24 09:00 Morphine Sulfate 2 mg Q4HPRN PRN IV 05/26/24 09:00 Nitroglycerin 0.4 mg Q5MINP PRN SL 05/26/24 09:00 Morphine Sulfate 2 mg Q30M PRN IV 05/26/24 09:00 Piperacillin Sod/ Tazobactam Sod 100 ml @ 25 mls/hr Q8H IV 05/26/24 12:00 05/26/24 11:06 25 MLS/HR Clopidogrel Bisulfate 75 mg DAILY PO 05/26/24 10:00 05/26/24 11:05 75 MG Levetiracetam 1,000 mg BID PO 05/26/24 10:00 05/26/24 11:05 1,000 MG Gabapentin 300 mg TID PO 05/26/24 14:00 05/26/24 14:33 300 MG Pantoprazole Sodium 40 mg DAILY IV 05/26/24 10:00 05/26/24 11:04 40 MG Exam Vital Signs Vital Signs Date Time Temp Pulse Resp B/P (MAP) Pulse Ox O2 Delivery O2 Flow Rate FiO2 05/26/24 14:00 65 15 142/89 (106) 100 05/26/24 08:00 99.2 99.2 05/26/24 08:00 Room Air* 0 21 General Appearance: Alert, Oriented X3, Cooperative, No acute distress Respiratory: Clear to auscultation, Normal air movement Cardiovascular: Regular rate, Normal S1, Normal S2, No murmurs Abdominal: Normal bowel sounds, Soft, No tenderness, No hepatospenomegaly Extremities: No clubbing Labs/Xrays Labs Test 05/25/24 20:27 Range/Units White Blood Count 7.6 4.4-10.8 10^3/uL Red Blood Count 4.39 4.0-5.20 10^6/uL Hemoglobin 13.2 12.2-16.2 g/dL Hematocrit 40.3 36.0-46.0 % Mean Corpuscular Volume 91.7 80.0-100.0 fL Mean Corpuscular Hemoglobin 30.2 28.0-32.0 pg Mean Corpuscular Hemoglobin Concent 32.9 32.0-36.0 g/dL Red Cell Distribution Width 12.9 11.8-14.3 % Platelet Count 136 L 140-450 10^3/uL Mean Platelet Volume 10.7 6.9-10.8 fL Neutrophils (%) (Auto) 73.7 37.0-80.0 % Lymphocytes (%) (Auto) 20.7 10.0-50.0 % Monocytes (%) (Auto) 5.3 0.0-12.0 % Eosinophils (%) (Auto) 0.1 0.0-7.0 % Basophils (%) (Auto) 0.2 0.0-2.0 % Neutrophils # (Auto) 5.6 1.6-8.6 10 ^3/uL Lymphocytes # (Auto) 1.6 0.4-5.4 10 ^3/uL Monocytes # (Auto) 0.4 0-1.3 10 ^3/uL Eosinophils # (Auto) 0 0-0.8 10 ^3/uL Basophils # (Auto) 0 0-0.2 10 ^3/uL Nucleated Red Blood Cells 0.1 % Sodium Level 140 136-145 mmol/L Potassium Level 3.3 L 3.5-5.1 mmol/L Chloride Level 112 H 98-107 mmol/L Carbon Dioxide Level 23 20-31 mmol/L Anion Gap 5 5-15 Blood Urea Nitrogen 7 L 9-23 mg/dL Creatinine 0.77 0.550-1.02 mg/dL Glomerular Filtration Rate Calc 88 >90 mL/min BUN/Creatinine Ratio 9.1 L 10.0-20.0 Serum Glucose 116 H 74-106 mg/dL Calcium Level 10.1 8.7-10.4 mg/dL Total Bilirubin 0.2 0.2-1.0 mg/dL Aspartate Amino Transferase (AST) 14 13-40 U/L Alanine Aminotransferase (ALT) 10 7-40 U/L Alkaline Phosphatase 97 46-116 U/L Total Protein 8.6 H 5.7-8.2 g/dL Albumin 5.0 H 3.2-4.8 g/dL Lipase 41 12-53 U/L Assessment/Plan Assessment/Plan 1.Abdominal pain likely from appendicitis Surgical consult, IV fluids, IV antibiotics, cardiac consult for clearance 2. history of CVA 3. HTN continue with home medication 4. HLD continue with home medication 5. seizures continue with keppra 1000 MG BID 6. opioid dependence 7. cachectic lady 8. Hypokalemia Replace Plan discussed with: Patient My Orders Orders - IGL TITUS Procedure Category Date Status Time Admit ADMIT 05/26/24 Transmitted 08:57 Allergies DAVID 05/26/24 In Process 08:57 Code Status CODE 05/26/24 Transmitted 08:57 Hydrocodone-Acet PHA 05/26/24 In Process 5/325mg Tab ([place] 09:00 Ondansetron Hcl PHA 05/26/24 In Process (Zofran) 09:00 Enoxaparin Sodium PHA 05/26/24 In Process (Lovenox) 10:00 Npo (Nothing By DIET 05/26/24 Transmitted Mouth) Diet Breakfast Echo 2d Mode Cardiac US 05/26/24 Resulted DOP 08:57 Condition: Fair DAVID 05/26/24 In Process 08:57 Acetaminophen Tablet PHA 05/26/24 In Process (Tylenol Tablet) 09:00 Morphine Sulfate PHA 05/26/24 In Process Injection 09:00 Nitroglycerin PHA 05/26/24 In Process Sublingual (Ntrostat 09:00 Morphine Sulfate PHA 05/26/24 In Process Injection 09:00 Stat Ekg For Chest DAVID 05/26/24 In Process Pain 08:57 Notify Md Of Changes [facility] 05/26/24 In Process From Base 08:57 Reception Agent For DAVID 05/26/24 In Process 24 Hours 08:57 Emergency Dysrhythmia [facility] 05/26/24 In Process Protocol 08:57 Rhythm Strips Once DAVID 05/26/24 In Process Every Shift 08:57 Oxygen By Nasal RT 05/26/24 Transmitted Cannula 08:57 * Surgical Consult CONS 05/26/24 Transmitted Piperacillin-Tazob PHA 05/26/24 In Process 3.375gm (Zosyn 3.375g 12:00 *Consult Dr[address] Jack CONS 05/26/24 Transmitted Damion 09:00 Blood Culture RUFINA 05/26/24 In Process 09:00 Clopidogrel Bisulfate PHA 05/26/24 In Process (Plavix) 10:00 Levetiracetam Tablet PHA 05/26/24 In Process (Keppra Tablet) 10:00 Gabapentin Capsule PHA 05/26/24 In Process (Neurontin Capsule) 14:00 Pantoprazole PHA 05/26/24 In Process (Protonix) 10:00 Potassium Effervesent PHA 05/26/24 Logged Tab (Klor-Con/Ef) 16:15 Date of Service: May 26, 2024 Billing Provider: SHELBY SALMERON MD Common Visit Codes: [id number] INP/OBS CARE (MOD) GIL TITUS [employer] ENGINEER HELPER May 26, 2024 16:25
[2024-05-26] MEDS: SODIUM CHLORIDE 0.9% 1,000 ML IV SCH (17:05)
[2024-05-26] MEDS: POTASSIUM EFFERVESENT TAB 25 MEQ PO ONE (17:05)
[2024-05-26 17:09] LABS: Urine Bacteria None Seen /hpf (None Seen)
[2024-05-26 18:03] LABS: Urine Blood 2+ /uL (Negative); Urine Clarity Clear (Clear); Urine Color Light-Yellow (Yellow); Urine Protein, UAD 3+ (Negative); Urine Specific Gravity 1.028 (1.001-1.035); Urine Urobilinogen Normal (Negative); Urine WBC 19 /hpf (0 - 5); Urine pH 6.5 (5.0-9.0)
[2024-05-26] MEDS: MORPHINE SULFATE INJ 2 MG/ml SYRG IV PRN (18:11)
[2024-05-26 19:48] VITALS: O2SAT 99
[2024-05-26] MEDS: ACETAMINOPHEN 325 MG TAB PO PRN (22:56)
[2024-05-26 22:58] VITALS: BP 157/90; PULSE 57; RESP 20; TEMP 98.5; O2SAT 100
[2024-05-27] VITALS (9 sets, daily range): BP systolic 130–169; BP diastolic 65–101; PULSE 58–70; RESP 14–20; TEMP 97.8–98.9; O2SAT 97–100
[2024-05-27] MEDS ORDERED: GABA-1250 PO (01:27)
[2024-05-27] MEDS ORDERED: HYDR-4798 PO (01:27)
[2024-05-27] MEDS ORDERED: LEVE500T40 PO (01:27)
[2024-05-27] MEDS ORDERED: CLOP75TA70 PO (01:27)
[2024-05-27] MEDS ORDERED: TRAZ-228 PO (01:27)
[2024-05-27] MEDS ORDERED: MORP15TA PO (01:27)
--- NOTE | 2024-05-27 08:07 | DVHPN2 ---
Progress Note - Dictate Date Seen: May 27, 2024 Medical Necessity Reason Pt with a Central, PICC or Fol: No vital signs Vital Sign Date Time Temp Pulse Resp B/P (MAP) Pulse Ox O2 Delivery O2 Flow Rate FiO2 05/27/24 04:59 98.3 69 20 161/92 (115) 99 98.3 05/27/24 00:06 Room Air* 0 21 Total Intake and Output 05/26/24 05/26/24 05/27/24 15:00 23:00 07:00 Intake Total 100 ml 100 ml Output Total 500 ml 250 ml Balance -400 ml -150 ml medications Current Medications Medications Dose Ordered Sig/Wilber Route Start Time Stop Time Status Last Admin Dose Admin Acetaminophen/ Hydrocodone Bitart 1 tab Q4HP PRN PO 05/26/24 09:00 05/26/24 16:12 1 TAB Ondansetron HCl 4 mg Q4HP PRN IV 05/26/24 09:00 Enoxaparin Sodium 40 mg DAILY SC 05/26/24 10:00 05/26/24 11:06 40 MG Acetaminophen 650 mg Q6HP PRN PO 05/26/24 09:00 05/26/24 22:56 650 MG Morphine Sulfate 2 mg Q4HPRN PRN IV 05/26/24 09:00 05/27/24 03:54 2 MG Nitroglycerin 0.4 mg Q5MINP PRN SL 05/26/24 09:00 Morphine Sulfate 2 mg Q30M PRN IV 05/26/24 09:00 Piperacillin Sod/ Tazobactam Sod 100 ml @ 25 mls/hr Q8H IV 05/26/24 12:00 05/26/24 20:14 25 MLS/HR Clopidogrel Bisulfate 75 mg DAILY PO 05/26/24 10:00 05/26/24 11:05 75 MG Levetiracetam 1,000 mg BID PO 05/26/24 10:00 05/26/24 22:00 1,000 MG Gabapentin 300 mg TID PO 05/26/24 14:00 05/27/24 05:47 300 MG Pantoprazole Sodium 40 mg DAILY IV 05/26/24 10:00 05/26/24 11:04 40 MG Sodium Chloride 1,000 ml @ 100 mls/hr Q10H IV 05/26/24 16:45 05/26/24 17:05 100 MLS/HR laboratory and microbiology Laboratory Tests 05/25/24 20:27 Test 05/25/24 20:27 Range/Units Serum Glucose 116 H 74-106 mg/dL Assessment/Plan Patient is 58-year-old female who presented with abdominal pain/nausea/vomiting. While arriving to emergency room, blood pressure was 211/111. There has been some question about appendicitis. Cardiology is involved for cardiac aspects of care and to provide risk stratification prior to abdominal surgery. Patient herself is very poor historian and can not provide history. She looks cachectic and with poor functional status. 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 Patient herself mentions that she had heart attack over a decade ago. She denies following up with Cardiology as outpatient. No recent chest pain. Cachectic lady, lying flat in bed. Not in acute distress. Mucosa is dry and pink. No JVD. No carotid bruit. Lungs reveal scattered rhonchi. Not using accessory muscles of breathing. Cardiac: Regular, no thrill/gallop. Systolic murmur 1/6 in the apex is heard. Abdomen is firm. Extremities do not reveal edema. 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 Creatinine: 0.77 Potassium: 3.3 CT of the abdomen and pelvis revealed: 1. An elongated tubular structure measuring 4.5 cm and 13 mm in thickness is seen in the right iliac fossa, extending from the cecum. This may represent an inflamed appendix. Its distal end is inadequately visualized due to artifact. There is no appendicolith within. 2. Fatty infiltration of the liver. 3. Prominent pancreatic duct measuring 4 mm. 4. Cortical cysts in both kidneys, the largest measuring 17 mm in the right kidney and 33 mm in the left kidney (Bosniak type I). 5. Bilateral total hip replacement implants, with suboptimal evaluation of the pelvis. 6. Mild subpleural fibrosis in the right lower lobe. Chest x-ray reported: Frontal chest radiograph demonstrates no acute osseous or superficial soft tissue abnormalities. The trachea is midline. The cardiac silhouette and mediastinum are within normal limits. No pneumothorax, pleural effusions, or consolidations. Appendix ultrasound reported: IMPRESSION: 1. Findings concerning for acute appendicitis. Telemetry reveals sinus rhythm Echocardiogram revealed: Left ventricle: Left ventricle is normal-sized with normal systolic function. Borderline concentric left ventricular hypertrophy was seen. There was no wall motion abnormality. LVEF was 65-70%. Right ventricle is normal-sized with normal systolic function. Both atria were minimally dilated. Aortic valve: Aortic valve was trileaflet. There was no aortic stenosis/insufficiency. There was trivial mitral/tricuspid regurgitation. There was trivial/physiologic pulmonary valve insufficiency. As there was no good tricuspid regurgitation jet, right ventricular systolic pressure could not be estimated. There was no echocardiographic evidence for pulmonary hypertension. There was trivial pericardial effusion. Patient is a 58-year-old female who presented with abdominal pain/nausea and vomiting. CT of the abdomen questions appendicitis. Presentation is not in favor of acute coronary syndrome. Cardiology etiology for presentation is not considered at this point. Does have baseline poor functional capacity. There is no recent cardiac episodes. Echocardiogram revealed could left ventricular systolic function and no specific valvular disease. Abdominal pain Nausea/vomiting Questionable appendicitis in CT scan Fatty liver Old history of CVA with right hemiparesis Poor functional capacity Hypertension Hyperlipidemia Seizure disorder Opioid dependence Cachectic lady Cardiac suggestion for management: Manage on telemetry Follow-up electrolytes and kidney function tests and correct abnormalities Keep potassium above 4 and magnesium above 2 Fluid resuscitation is advised GI evaluation is suggested Surgical follow up is suggested Cardiac-monsivais, the patient is moderate risk patient for moderate risk abdominal surgery. Cardiac-monsivais, you can proceed with abdominal surgery under appropriate intra and postoperative hemodynamic monitoring. Avoid hypotension Further evaluation and management depends on the above and clinical course A total of 55 minutes was spent reviewing the patient record, examining the patient, making a diagnostic and therapeutic plan, discussing this plan with medical personnel, following up on diagnostic studies and following the patient for clinical stability excluding any and all procedures. At least 50% of this time was spent in direct, [id number] contact. Thank you for allowing me to participate in this patient's care. Further recommendations will depend on patient's clinical course. Please do not hesitate to contact me if you have any questions or concerns. This medical document was created using electronic medical record system with [employer] dictation system. Although this document has been carefully reviewed, there may still be some phonetic and typographical errors. These areas are purely typographical due to the imperfection of the software programs, and do not reflect any compromise in the patient's medical care. Plan discussed with: Patient, Other (nurse) AKBAR ZAVALA MD May 27, 2024 08:07
[2024-05-27 11:44] LABS: Basophils # (auto) 0.1 10 ^3/uL (0-0.2); Basophils % (auto) 1.5 % (0.0-2.0); Eosinophils # (auto) 0 10 ^3/uL (0-0.8); Eosinophils % (auto) 0.1 % (0.0-7.0); Hematocrit 35.9 % (36.0-46.0); Hemoglobin 12.1 g/dL (12.2-16.2); Lymphocytes # (auto) 1.9 10 ^3/uL (0.4-5.4); Lymphocytes % (auto) 28.2 % (10.0-50.0); Mean Corpuscular Hemoglobin 30.4 pg (28.0-32.0); Mean Corpuscular Hgb Conc. 33.7 g/dL (32.0-36.0); Mean Corpuscular Volume 90.2 fL (80.0-100.0); Monocytes # (auto) 0.4 10 ^3/uL (0-1.3); Monocytes % (auto) 5.2 % (0.0-12.0); Neutrophils # (auto) 4.4 10 ^3/uL (1.6-8.6); Nucleated Red Blood Cells % 0.1 %; Platelet Count (auto) 139 10^3/uL (140-450); Red Blood Cells 3.99 10^6/uL (4.0-5.20); Red Cell Distribution Width 12.5 % (11.8-14.3); White Blood Cell 6.8 10^3/uL (4.4-10.8)
[2024-05-27 12:00] LABS: INR 1.08 (0.9-1.15); Partial Thromboplastin Time 26.6 SEC (24.5-34.5); Prothrombin Time 11.4 sec (9.3-11.8)
--- NOTE | 2024-05-27 13:09 | DVHPN2 ---
Progress Note - Surgical Date Seen: May 27, 2024 Post op day Post op day: 0 Subjective Review of Systems: HEENT:Normal, CVS:Normal, RESPIRATORY:Normal, GI:Abnormal (abdominal pain ) Objective Vital signs Vital Sign Date Time Temp Pulse Resp B/P (MAP) Pulse Ox O2 Delivery O2 Flow Rate FiO2 05/27/24 12:41 98.9 61 14 130/85 (100) 100 98.9 05/27/24 00:06 Room Air* 0 21 Total Intake and Output 05/26/24 05/26/24 05/27/24 15:00 23:00 07:00 Intake Total 100 ml 100 ml Output Total 500 ml 250 ml Balance -400 ml -150 ml Medications Current Medications Medications Dose Ordered Sig/Wilber Route Start Time Stop Time Status Last Admin Dose Admin Acetaminophen/ Hydrocodone Bitart 1 tab Q4HP PRN PO 05/26/24 09:00 05/27/24 08:29 1 TAB Ondansetron HCl 4 mg Q4HP PRN IV 05/26/24 09:00 Enoxaparin Sodium 40 mg DAILY SC 05/26/24 10:00 05/26/24 11:06 40 MG Acetaminophen 650 mg Q6HP PRN PO 05/26/24 09:00 05/26/24 22:56 650 MG Morphine Sulfate 2 mg Q4HPRN PRN IV 05/26/24 09:00 05/27/24 12:08 2 MG Nitroglycerin 0.4 mg Q5MINP PRN SL 05/26/24 09:00 Morphine Sulfate 2 mg Q30M PRN IV 05/26/24 09:00 Piperacillin Sod/ Tazobactam Sod 100 ml @ 25 mls/hr Q8H IV 05/26/24 12:00 05/27/24 12:07 25 MLS/HR Clopidogrel Bisulfate 75 mg DAILY PO 05/26/24 10:00 05/26/24 11:05 75 MG Levetiracetam 1,000 mg BID PO 05/26/24 10:00 05/27/24 10:07 1,000 MG Gabapentin 300 mg TID PO 05/26/24 14:00 05/27/24 05:47 300 MG Pantoprazole Sodium 40 mg DAILY IV 05/26/24 10:00 05/27/24 10:07 40 MG Sodium Chloride 1,000 ml @ 100 mls/hr Q10H IV 05/26/24 16:45 05/26/24 17:05 100 MLS/HR Laboratory Laboratory Tests 05/27/24 10:45 Test 05/27/24 10:45 Range/Units Serum Glucose Pending Examination: GENERAL:Normal, HEENT:Normal, NECK:Normal, LUNGS:Normal, CVS:Normal, ABDOMEN:Abnormal (tender abdomen), SKIN:Normal Problem List/Assessment/Plan Assessment and Plan patient complain of abdominal pain, tender to palpation , plan redraw labs, iv antibiotics, IV hydration, hold Lovenox and Plavix, schedule for laparoscopic possibly open appendectomy for tomorrow case discussed with Dr. Chandler My Orders My Orders Orders - STEFANY NOEL NP Procedure Category Date Status Time Type And Screen BBK 05/27/24 In Process 08:44 Obtain Consent For: ORDERS 05/27/24 Transmitted 12:08 Plan discussed with Plan discussed with: Patient, Other (Nurse, Dr Chandler ) Visit Coding Surgery Date of Service if different f: May 27, 2024 Billing Provider: JUAN CHANDLER MD Surgery Visit Codes: [id number] - INP CONSULT <80 MIN STEFANY NOEL NP May 27, 2024 13:09
[2024-05-27 14:01] LABS: Anion Gap 8 (5-15)
[2024-05-27 14:15] LABS: BUN/Creatinine Ratio 14.5 (10.0-20.0)
[2024-05-27 14:16] LABS: Alanine Aminotransferase 11 U/L (7-40); Albumin 4.3 g/dL (3.2-4.8); Alkaline Phosphatase 89 U/L (46-116); Aspartate Aminotransferase 16 U/L (13-40); Bilirubin, Total 0.6 mg/dL (0.2-1.0); Blood Urea Nitrogen 12 mg/dL (9-23); Calcium 9.8 mg/dL (8.7-10.4); Carbon Dioxide 21 mmol/L (20-31); Chloride 114 mmol/L (98-107); Glucose 89 mg/dL (74-106); Magnesium 1.8 mg/dL (1.6-2.6); Potassium 3.6 mmol/L (3.5-5.1); Sodium 143 mmol/L (136-145); Total Protein 7.6 g/dL (5.7-8.2)
--- NOTE | 2024-05-27 15:31 | DVHPN2 ---
Progress Note Date Seen: May 27, 2024 Medical Necessity Reason Pt with a Central, PICC or Fol: No Subjective Patient reports: No new complaints Objective vital signs Vital Sign Date Time Temp Pulse Resp B/P (MAP) Pulse Ox O2 Delivery O2 Flow Rate FiO2 05/27/24 12:41 98.9 61 14 130/85 (100) 100 98.9 05/27/24 08:00 Room Air* 0 21 Total Intake and Output 05/26/24 05/26/24 05/27/24 15:00 23:00 07:00 Intake Total 100 ml 100 ml Output Total 500 ml 250 ml Balance -400 ml -150 ml medications Current Medications Medications Dose Ordered Sig/Wilber Route Start Time Stop Time Status Last Admin Dose Admin Acetaminophen/ Hydrocodone Bitart 1 tab Q4HP PRN PO 05/26/24 09:00 05/27/24 08:29 1 TAB Ondansetron HCl 4 mg Q4HP PRN IV 05/26/24 09:00 Enoxaparin Sodium 40 mg DAILY SC 05/26/24 10:00 05/26/24 11:06 40 MG Acetaminophen 650 mg Q6HP PRN PO 05/26/24 09:00 05/26/24 22:56 650 MG Morphine Sulfate 2 mg Q4HPRN PRN IV 05/26/24 09:00 05/27/24 12:08 2 MG Nitroglycerin 0.4 mg Q5MINP PRN SL 05/26/24 09:00 Morphine Sulfate 2 mg Q30M PRN IV 05/26/24 09:00 Piperacillin Sod/ Tazobactam Sod 100 ml @ 25 mls/hr Q8H IV 05/26/24 12:00 05/27/24 12:07 25 MLS/HR Clopidogrel Bisulfate 75 mg DAILY PO 05/26/24 10:00 05/26/24 11:05 75 MG Levetiracetam 1,000 mg BID PO 05/26/24 10:00 05/27/24 10:07 1,000 MG Gabapentin 300 mg TID PO 05/26/24 14:00 05/27/24 05:47 300 MG Pantoprazole Sodium 40 mg DAILY IV 05/26/24 10:00 05/27/24 10:07 40 MG Sodium Chloride 1,000 ml @ 100 mls/hr Q10H IV 05/26/24 16:45 05/26/24 17:05 100 MLS/HR Examination: GENERAL:Normal, LUNGS:Normal, CVS:Normal, ABDOMEN:Normal, SKIN:Normal, NEURO:Normal laboratory and microbiology Laboratory Tests 05/27/24 13:33 05/27/24 10:45 Test 05/27/24 13:33 Range/Units Serum Glucose 89 74-106 mg/dL Microbiology Date/Time Source Procedure Growth Status 05/26/24 14:54 Blood Blood Culture - Preliminary NO GROWTH AFTER 24 HOURS OF INCUBATION. Resulted Labs and/or images reviewed: Labs reviewed by me, Image(s) reviewed by me Problem List/Assessment/Plan Problem List/Assessment/Plan 1.Abdominal pain likely from appendicitis Surgical consult, IV fluids, IV antibiotics, cardiac consult for clearance 2. history of CVA with expressive aphasia 3. HTN continue with home medication 4. HLD continue with home medication 5. seizures continue with keppra 1000 MG BID 6. opioid dependence 7. cachectic lady 8. Hypokalemia Replace Subjective: Awake but not alert Objective: Patient was admitted for acute abdominal pain. CT scan was concerning for acute appendicitis. Patient underwent appendix ultrasound which appears to be positive. Patient abdomen is tender to right lower quadrant. Patient was seen by general surgeon and we will be planning for surgery tomorrow. Patient was seen by electric motor tester and was deemed intermediate risk for surgery. Patient has expressive aphasia from previous CVA. Plan: Cardiac consult appreciated, planned for possible laparoscopic or open appendectomy for surgery, keep NPO, continue IV fluids, await blood cultures, continue IV antibiotics Plan discussed with: Patient My Orders My Orders Orders - GIL TITUS Procedure Category Date Status Time Insert/Manage Urinary DAVID 05/26/24 In Process Catheter 16:31 Sodium Chloride 0.9% PHA 05/26/24 In Process 16:45 * Dietary Consult CONS 05/27/24 Transmitted 01:19 * Wound Consult CONS 05/27/24 Transmitted 01:19 Cleanse Wound With DAVID 05/27/24 In Process Wound Clean 10:00 Date of Service: May 27, 2024 Billing Provider: SHELBY SALMERON MD Common Visit Codes: [id number] INP/OBS CARE (MOD) GIL TITUS May 27, 2024 15:31
[2024-05-28] VITALS (9 sets, daily range): BP systolic 162–186; BP diastolic 81–102; PULSE 50–96; RESP 11–18; TEMP 98.5–98.8; O2SAT 90–99
[2024-05-28] MEDS ORDERED: ePHEDrine SULFATE 50 MG/ML AMP IV PRN (07:15)
[2024-05-28] MEDS ORDERED: MIDAZOLAM HCL 2MG/2ML 2ml VIAL (1mg/ml) ONE (07:50)
[2024-05-28] MEDS ORDERED: MORPHINE SULF PF 5 MG/10 ML VIAL ONE ×2 (08:11→08:48)
--- NOTE | 2024-05-28 08:26 | DVHPN2 ---
Progress Note - Dictate Date Seen: May 28, 2024 Medical Necessity Reason Pt with a Central, PICC or Fol: No vital signs Vital Sign Date Time Temp Pulse Resp B/P (MAP) Pulse Ox O2 Delivery O2 Flow Rate FiO2 05/28/24 05:00 98.5 63 18 171/82 (111) 99 98.5 05/27/24 20:00 Room Air* 0 21 Total Intake and Output 05/27/24 05/27/24 05/28/24 15:00 23:00 07:00 Intake Total 1280 ml 380 ml Output Total 525 ml 525 ml Balance 755 ml -145 ml medications Current Medications Medications Dose Ordered Sig/Wilber Route Start Time Stop Time Status Last Admin Dose Admin Acetaminophen/ Hydrocodone Bitart 1 tab Q4HP PRN PO 05/26/24 09:00 05/28/24 00:39 1 TAB Ondansetron HCl 4 mg Q4HP PRN IV 05/26/24 09:00 Enoxaparin Sodium 40 mg DAILY SC 05/26/24 10:00 05/26/24 11:06 40 MG Acetaminophen 650 mg Q6HP PRN PO 05/26/24 09:00 05/26/24 22:56 650 MG Morphine Sulfate 2 mg Q4HPRN PRN IV 05/26/24 09:00 05/28/24 02:33 2 MG Nitroglycerin 0.4 mg Q5MINP PRN SL 05/26/24 09:00 Morphine Sulfate 2 mg Q30M PRN IV 05/26/24 09:00 Piperacillin Sod/ Tazobactam Sod 100 ml @ 25 mls/hr Q8H IV 05/26/24 12:00 05/28/24 04:45 25 MLS/HR Clopidogrel Bisulfate 75 mg DAILY PO 05/26/24 10:00 05/26/24 11:05 75 MG Levetiracetam 1,000 mg BID PO 05/26/24 10:00 05/27/24 21:02 1,000 MG Gabapentin 300 mg TID PO 05/26/24 14:00 05/27/24 21:02 300 MG Pantoprazole Sodium 40 mg DAILY IV 05/26/24 10:00 05/27/24 10:07 40 MG Sodium Chloride 1,000 ml @ 100 mls/hr Q10H IV 05/26/24 16:45 05/27/24 22:49 100 MLS/HR laboratory and microbiology Laboratory Tests 05/27/24 13:33 05/27/24 10:45 Test 05/27/24 13:33 Range/Units Serum Glucose 89 74-106 mg/dL Assessment/Plan Patient is 58-year-old female who presented with abdominal pain/nausea/vomiting. While arriving to emergency room, blood pressure was 211/111. There has been some question about appendicitis. Cardiology is involved for cardiac aspects of care and to provide risk stratification prior to abdominal surgery. Patient herself is very poor historian and can not provide history. She looks cachectic and with poor functional status. 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 Patient herself mentions that she had heart attack over a decade ago. She denies following up with Cardiology as outpatient. No recent chest pain. Cachectic lady, lying flat in bed. Not in acute distress. Mucosa is dry and pink. No JVD. No carotid bruit. Lungs reveal scattered rhonchi. Not using accessory muscles of breathing. Cardiac: Regular, no thrill/gallop. Systolic murmur 1/6 in the apex is heard. Abdomen is firm. Extremities do not reveal edema. 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 Creatinine: 0.77 - 0.83 Potassium: 3.3 - 3.6 CT of the abdomen and pelvis revealed: 1. An elongated tubular structure measuring 4.5 cm and 13 mm in thickness is seen in the right iliac fossa, extending from the cecum. This may represent an inflamed appendix. Its distal end is inadequately visualized due to artifact. There is no appendicolith within. 2. Fatty infiltration of the liver. 3. Prominent pancreatic duct measuring 4 mm. 4. Cortical cysts in both kidneys, the largest measuring 17 mm in the right kidney and 33 mm in the left kidney (Bosniak type I). 5. Bilateral total hip replacement implants, with suboptimal evaluation of the pelvis. 6. Mild subpleural fibrosis in the right lower lobe. Chest x-ray reported: Frontal chest radiograph demonstrates no acute osseous or superficial soft tissue abnormalities. The trachea is midline. The cardiac silhouette and mediastinum are within normal limits. No pneumothorax, pleural effusions, or consolidations. Appendix ultrasound reported: IMPRESSION: 1. Findings concerning for acute appendicitis. Telemetry reveals sinus rhythm Echocardiogram revealed: Left ventricle: Left ventricle is normal-sized with normal systolic function. Borderline concentric left ventricular hypertrophy was seen. There was no wall motion abnormality. LVEF was 65-70%. Right ventricle is normal-sized with normal systolic function. Both atria were minimally dilated. Aortic valve: Aortic valve was trileaflet. There was no aortic stenosis/insufficiency. There was trivial mitral/tricuspid regurgitation. There was trivial/physiologic pulmonary valve insufficiency. As there was no good tricuspid regurgitation jet, right ventricular systolic pressure could not be estimated. There was no echocardiographic evidence for pulmonary hypertension. There was trivial pericardial effusion. Patient is a 58-year-old female who presented with abdominal pain/nausea and vomiting. CT of the abdomen questions appendicitis. Presentation is not in favor of acute coronary syndrome. Cardiology etiology for presentation is not considered at this point. Does have baseline poor functional capacity. There is no recent cardiac episodes. Echocardiogram revealed could left ventricular systolic function and no specific valvular disease. Abdominal pain Nausea/vomiting Questionable appendicitis in CT scan Fatty liver Old history of CVA with right hemiparesis Poor functional capacity Hypertension Hyperlipidemia Seizure disorder Opioid dependence Cachectic lady Cardiac suggestion for management: Manage on telemetry Follow-up electrolytes and kidney function tests and correct abnormalities Keep potassium above 4 and magnesium above 2 Fluid resuscitation is advised GI evaluation is suggested Surgical follow up is suggested Cardiac-monsivais, the patient is moderate risk patient for moderate risk abdominal surgery. Cardiac-monsivais, you can proceed with abdominal surgery under appropriate intra and postoperative hemodynamic monitoring. Avoid hypotension Further evaluation and management depends on the above and clinical course A total of 55 minutes was spent reviewing the patient record, examining the patient, making a diagnostic and therapeutic plan, discussing this plan with medical personnel, following up on diagnostic studies and following the patient for clinical stability excluding any and all procedures. At least 50% of this time was spent in direct, [id number] contact. Thank you for allowing me to participate in this patient's care. Further recommendations will depend on patient's clinical course. Please do not hesitate to contact me if you have any questions or concerns. This medical document was created using electronic medical record system with [employer] dictation system. Although this document has been carefully reviewed, there may still be some phonetic and typographical errors. These areas are purely typographical due to the imperfection of the software programs, and do not reflect any compromise in the patient's medical care. Plan discussed with: Other (nurse) AKBAR ZAVALA MD May 28, 2024 08:26
[2024-05-28] MEDS ORDERED: METOCLOPRAMIDE HCL 5MG/ml INJ 2ml VIAL ONE (08:41)
[2024-05-28] MEDS ORDERED: SUGAMMADEX 200mg/2ml Vial (100MG/ML) IV ONE (08:42)
--- NOTE | 2024-05-28 08:50 | DVHPN2 ---
Progress Note Date Seen: May 28, 2024 Medical Necessity Reason Pt with a Central, PICC or Fol: No Objective vital signs Vital Sign Date Time Temp Pulse Resp B/P (MAP) Pulse Ox O2 Delivery O2 Flow Rate FiO2 05/28/24 05:00 98.5 63 18 171/82 (111) 99 98.5 05/27/24 20:00 Room Air* 0 21 Total Intake and Output 05/27/24 05/27/24 05/28/24 15:00 23:00 07:00 Intake Total 1280 ml 380 ml Output Total 525 ml 525 ml Balance 755 ml -145 ml medications Current Medications Medications Dose Ordered Sig/Wilber Route Start Time Stop Time Status Last Admin Dose Admin Acetaminophen/ Hydrocodone Bitart 1 tab Q4HP PRN PO 05/26/24 09:00 05/28/24 00:39 1 TAB Ondansetron HCl 4 mg Q4HP PRN IV 05/26/24 09:00 Enoxaparin Sodium 40 mg DAILY SC 05/26/24 10:00 05/26/24 11:06 40 MG Acetaminophen 650 mg Q6HP PRN PO 05/26/24 09:00 05/26/24 22:56 650 MG Morphine Sulfate 2 mg Q4HPRN PRN IV 05/26/24 09:00 05/28/24 02:33 2 MG Nitroglycerin 0.4 mg Q5MINP PRN SL 05/26/24 09:00 Morphine Sulfate 2 mg Q30M PRN IV 05/26/24 09:00 Piperacillin Sod/ Tazobactam Sod 100 ml @ 25 mls/hr Q8H IV 05/26/24 12:00 05/28/24 04:45 25 MLS/HR Clopidogrel Bisulfate 75 mg DAILY PO 05/26/24 10:00 05/26/24 11:05 75 MG Levetiracetam 1,000 mg BID PO 05/26/24 10:00 05/27/24 21:02 1,000 MG Gabapentin 300 mg TID PO 05/26/24 14:00 05/27/24 21:02 300 MG Pantoprazole Sodium 40 mg DAILY IV 05/26/24 10:00 05/27/24 10:07 40 MG Sodium Chloride 1,000 ml @ 100 mls/hr Q10H IV 05/26/24 16:45 05/27/24 22:49 100 MLS/HR laboratory and microbiology Laboratory Tests 05/27/24 13:33 05/27/24 10:45 Test 05/27/24 13:33 Range/Units Serum Glucose 89 74-106 mg/dL Problem List/Assessment/Plan Problem List/Assessment/Plan 05/28/24 persistent abdominal pain, persistent abdominal tenderness, ultrasound coincides with ct scan, will proceed with appendectomy, operation risks and complications explained to patient in person and patient's daughter by phone (patient seen yesterday and this morning prior to operation) Plan discussed with: Patient JUAN KENNY MD May 28, 2024 08:50
[2024-05-28] MEDS: D5W/SOD CHL 0.45%/KCL 20MEQ 1,000 ML IV SCH (09:00)
[2024-05-28] MEDS: BUPIVACAINE 0.5% INJ 50ML VIAL IJ ONE (09:04)
[2024-05-28] MEDS: LIDOCAINE W/ EPINEPHRINE 1% 20ML VIAL ONE (09:06)
--- NOTE | 2024-05-28 09:28 | DVHOP ---
DATE OF SURGERY: 05/28/2024 PREOPERATIVE DIAGNOSIS: Appendicitis. POSTOPERATIVE DIAGNOSIS: Appendicitis. SURGEON: Bradley Chandler MD FILLING AND STAPLING MACHINE OPERATOR: Osvaldo Calderón. ANESTHESIA: General endotracheal. ANESTHESIOLOGIST: Dr. Haddad. PROCEDURE: Laparoscopy, laparoscopic appendectomy. DESCRIPTION OF PROCEDURE: Under general endotracheal anesthesia, with the patient's skin prepped and draped, a supraumbilical incision was made and Veress needle inserted by the hanging drop technique in order to establish pneumoperitoneum to 15 mmHg pressure by insufflation with carbon dioxide. With the abdomen fully distended, the needle was removed and replaced with a 5 mm trocar port through which a 0-degree viewing laparoscope was inserted, and under direct vision, additional 5 and 10 mm ports inserted through the midline of the abdominal wall. Laparoscopy revealed no obvious unexpected pathology. The appendix was elongated, tortuous, and in retrocecal position. It was covered by a peritoneal veil. It was mobilized and traced to its confluence with the cecum at its base. It was then transected with an Endo-LUCITA stapler, and the mobilized appendix and mesoappendix were removed from the peritoneal cavity by placement in a specimen extraction bag, which was withdrawn through the 10 mm port sites. The right lower quadrant was then profusely irrigated, irrigant was aspirated. Hemostasis was meticulously inspected and found to be complete. Following inspection for adequate hemostasis, the pelvis was examined. There was no evidence of any pelvic pathology on examination. The right lower quadrant was again irrigated and the irrigant was aspirated. Pneumoperitoneum was evacuated after withdrawal of instrumentation. The fascial defect was closed using 0 Vicryl. Wounds approximated using Monocryl sutures, Dermabond glue and Steri-Strips. The patient remained stable throughout the procedure and left the operating room following an accurate needle and sponge count. Her daughter Anali was thoroughly informed at [phone]. MD KOBI Mur[place]/LUCITA TID: [id number] RECEIPT: [id number]
[2024-05-28] MEDS: HYDROmorphone HCL 2 MG/ML VL/or syr IV PRN ×2 (09:30→10:25)
[2024-05-28] MEDS: PANTOPRAZOLE 40 MG/10 ML VIAL INJ IV SCH (10:00)
[2024-05-28] MEDS: ONDANSETRON HCL 4 MG/2 ML VIAL IV ONE (10:30)
[2024-05-28] MEDS: HYDROmorphone HCL 2 MG/ML VL/or syr ONE (10:30)
[2024-05-28] MEDS: BUPIVACAINE HCL 50 ML ONE (10:30)
--- NOTE | 2024-05-28 12:48 | DVHPN2 ---
Progress Note - Dictate Date Seen: May 28, 2024 Medical Necessity Reason Pt with a Central, PICC or Fol: No vital signs Vital Sign Date Time Temp Pulse Resp B/P (MAP) Pulse Ox O2 Delivery O2 Flow Rate FiO2 05/28/24 11:00 Nasal Cannula 2.0 93 05/28/24 11:00 50 11 93 05/28/24 10:45 139/76 (97) 05/28/24 09:00 97.1 97.1 Total Intake and Output 05/27/24 05/27/24 05/28/24 14:59 22:59 06:59 Intake Total 1280 ml 380 ml Output Total 525 ml 525 ml Balance 755 ml -145 ml medications Current Medications Medications Dose Ordered Sig/Wilber Route Start Time Stop Time Status Last Admin Dose Admin Acetaminophen/ Hydrocodone Bitart 1 tab Q4HP PRN PO 05/26/24 09:00 05/28/24 00:39 1 TAB Ondansetron HCl 4 mg Q4HP PRN IV 05/26/24 09:00 Enoxaparin Sodium 40 mg DAILY SC 05/26/24 10:00 05/26/24 11:06 40 MG Acetaminophen 650 mg Q6HP PRN PO 05/26/24 09:00 05/26/24 22:56 650 MG Morphine Sulfate 2 mg Q4HPRN PRN IV 05/26/24 09:00 05/28/24 02:33 2 MG Nitroglycerin 0.4 mg Q5MINP PRN SL 05/26/24 09:00 Morphine Sulfate 2 mg Q30M PRN IV 05/26/24 09:00 Piperacillin Sod/ Tazobactam Sod 100 ml @ 25 mls/hr Q8H IV 05/26/24 12:00 05/28/24 04:45 25 MLS/HR Clopidogrel Bisulfate 75 mg DAILY PO 05/26/24 10:00 05/26/24 11:05 75 MG Levetiracetam 1,000 mg BID PO 05/26/24 10:00 05/27/24 21:02 1,000 MG Gabapentin 300 mg TID PO 05/26/24 14:00 05/27/24 21:02 300 MG Pantoprazole Sodium 40 mg DAILY IV 05/26/24 10:00 05/27/24 10:07 40 MG Sodium Chloride 1,000 ml @ 100 mls/hr Q10H IV 05/26/24 16:45 05/27/24 22:49 100 MLS/HR Potassium Chloride/Dextrose/ Sod Cl 1,000 ml @ 100 mls/hr Q10H IV 05/28/24 09:00 Cefazolin Sodium 50 ml @ 100 mls/hr Q8HR IV 05/28/24 14:00 Metronidazole 100 ml @ 100 mls/hr Q8HR IV 05/28/24 14:00 Hydromorphone HCl 0.5 mg Q3HPRN PRN IV 05/28/24 09:00 Acetaminophen/ Codeine Phosphate 1 tab Q4HP PRN PO 05/28/24 09:00 Pantoprazole Sodium 40 mg DAILY IV 05/28/24 10:00 Ondansetron HCl 4 mg Q4HPRN PRN IV 05/28/24 09:00 objective General Appearance: alert, no distress HEENT: EOMI, PERRLA, normal external inspect of ears, no icterus, no nasal drainage Neck: no carotid bruit, no jugular venous distention (JVD), no lymphadenopathy Chest: normal thorax Respiratory: clear to auscultation, normal air movement Cardiovascular: regular rate and rhythm, no diastolic murmur, no jugular venous distention (JVD), no rub, no systolic murmur Abdominal: soft, no hepatomegaly, no mass, no splenomegaly, no tenderness Genitourinary: grossly normal external Musculoskeletal: no joint tenderness, no swelling Extremities: normal pulses, no calf tenderness, no clubbing, no cyanosis, no edema Skin: no bruising, no jaundice, no rash Neurological: alert, No focal deficit laboratory and microbiology Laboratory Tests 05/27/24 13:33 05/27/24 10:45 Test 05/27/24 13:33 Range/Units Serum Glucose 89 74-106 mg/dL Problem List 1.Abdominal pain likely from appendicitis Surgical consult, IV fluids, IV antibiotics, cardiac consult for clearance 2. history of CVA 3. HTN continue with home medication 4. HLD continue with home medication 5. seizures continue with keppra 1000 MG BID 6. opioid dependence 7. cachectic lady 8. Hypokalemia Replace Assessment/Plan Subjective Patient was not in room during assessment. Objective Patient admitted for abdominal pain. Patient was found acute appendicitis. Patient was seen by general surgery. Plan Continue current treatment. Continue IV fluids and pain medication as needed. Patient scheduled for surgery for appendicitis. Continue antibiotics. Plan discussed with: Patient, Other ZULLY ESTEVES 2[employer] GR[employer] TEACHER May 28, 2024 12:48
[2024-05-28] MEDS: ceFAZolin 1GM/50ML 50 ML IV SCH (13:36)
[2024-05-28] MEDS: ACETAMINOPHEN/CODEINE#3 (300/30mg) TAB PO PRN (13:36)
[2024-05-28] MEDS ORDERED: ROCURONIUM 10MG/ML 10ML VIAL IV ONE (14:27)
[2024-05-28] MEDS: metroNIDAZOLE 500MG/100ML 100 ML IV SCH (16:01)
[2024-05-28] MEDS: HYDROMORPHONE HCL 1 MG/ML INJ IV PRN (16:08)
--- NOTE | 2024-05-28 17:37 | MEDREC ---
[facility] Intervention Section I [facility] Intervention: Duplication of therapy (PLEASE CONSIDER D/C ZOSYN SINCE DUPLICATION OF THERAPY WITH CEFAZOLIN + METRONIDAZOLE) BAIRON TERRY PHARMACIST May 28, 2024 17:37
[2024-05-28 17:41] LABS: Basophils # (auto) 0.1 10 ^3/uL (0-0.2); Basophils % (auto) 0.6 % (0.0-2.0); Eosinophils # (auto) 0 10 ^3/uL (0-0.8); Eosinophils % (auto) 0.1 % (0.0-7.0); Hematocrit 35.4 % (36.0-46.0); Hemoglobin 11.7 g/dL (12.2-16.2); Lymphocytes % (auto) 19.8 % (10.0-50.0); Mean Corpuscular Hemoglobin 29.7 pg (28.0-32.0); Mean Corpuscular Volume 90.2 fL (80.0-100.0); Monocytes # (auto) 0.6 10 ^3/uL (0-1.3); Monocytes % (auto) 5.8 % (0.0-12.0); Neutrophils # (auto) 7.3 10 ^3/uL (1.6-8.6); Neutrophils % (auto) 73.7 % (37.0-80.0); Nucleated Red Blood Cells % 0.1 %; Platelet Count (auto) 121 10^3/uL (140-450); Red Blood Cells 3.92 10^6/uL (4.0-5.20); Red Cell Distribution Width 12.6 % (11.8-14.3); White Blood Cell 9.9 10^3/uL (4.4-10.8)
[2024-05-28 18:03] LABS: Alanine Aminotransferase 10 U/L (7-40); Albumin 4.2 g/dL (3.2-4.8); Alkaline Phosphatase 77 U/L (46-116); Anion Gap 8 (5-15); Aspartate Aminotransferase 15 U/L (13-40); Bilirubin, Total 0.4 mg/dL (0.2-1.0); Blood Urea Nitrogen 15 mg/dL (9-23); Calcium 9.5 mg/dL (8.7-10.4); Carbon Dioxide 21 mmol/L (20-31); Total Protein 7.3 g/dL (5.7-8.2)
[2024-05-28 18:04] LABS: Chloride 116 mmol/L (98-107); Glucose 111 mg/dL (74-106); Potassium 3.2 mmol/L (3.5-5.1); Sodium 145 mmol/L (136-145)
[2024-05-28] MEDS: hydrALAZINE HCL 20 MG/ML VL IV PRN (22:33)
[2024-05-29] VITALS (9 sets, daily range): BP systolic 159–213; BP diastolic 77–131; PULSE 65–132; RESP 14–18; TEMP 98.2–99.5; O2SAT 93–100
[2024-05-29] MEDS: ceFAZolin 1GM/50ML 50 ML IV SCH ×2 (00:09→16:12)
[2024-05-29] MEDS: metroNIDAZOLE 500MG/100ML 100 ML IV SCH ×2 (00:44→16:13)
[2024-05-29 06:55] LABS: Basophils # (auto) 0 10 ^3/uL (0-0.2); Basophils % (auto) 0.4 % (0.0-2.0); Eosinophils # (auto) 0 10 ^3/uL (0-0.8); Eosinophils % (auto) 0.2 % (0.0-7.0); Hematocrit 36.9 % (36.0-46.0); Hemoglobin 12.6 g/dL (12.2-16.2); Lymphocytes % (auto) 26.6 % (10.0-50.0); Mean Corpuscular Hemoglobin 30.4 pg (28.0-32.0); Mean Corpuscular Hgb Conc. 34.1 g/dL (32.0-36.0); Mean Corpuscular Volume 89.1 fL (80.0-100.0); Monocytes # (auto) 0.5 10 ^3/uL (0-1.3); Monocytes % (auto) 6.5 % (0.0-12.0); Neutrophils % (auto) 66.3 % (37.0-80.0); Platelet Count (auto) 112 10^3/uL (140-450); Red Blood Cells 4.14 10^6/uL (4.0-5.20); Red Cell Distribution Width 12.4 % (11.8-14.3); White Blood Cell 7.6 10^3/uL (4.4-10.8)
--- NOTE | 2024-05-29 08:31 | DVHPN2 ---
Progress Note - Dictate Date Seen: May 29, 2024 Medical Necessity Reason Pt with a Central, PICC or Fol: No vital signs Vital Sign Date Time Temp Pulse Resp B/P (MAP) Pulse Ox O2 Delivery O2 Flow Rate FiO2 05/29/24 04:57 98.2 97 17 170/90 (116) 100 98.2 05/28/24 20:00 Room Air* 0 21 Total Intake and Output 05/28/24 05/28/24 05/29/24 15:00 23:00 07:00 Intake Total 100 ml 150 ml 600 ml Output Total 200 ml 500 ml 600 ml Balance -100 ml -350 ml 0 ml medications Current Medications Medications Dose Ordered Sig/Wilber Route Start Time Stop Time Status Last Admin Dose Admin Acetaminophen/ Hydrocodone Bitart 1 tab Q4HP PRN PO 05/26/24 09:00 05/29/24 03:18 1 TAB Enoxaparin Sodium 40 mg DAILY SC 05/26/24 10:00 05/26/24 11:06 40 MG Acetaminophen 650 mg Q6HP PRN PO 05/26/24 09:00 05/26/24 22:56 650 MG Morphine Sulfate 2 mg Q4HPRN PRN IV 05/26/24 09:00 05/28/24 02:33 2 MG Nitroglycerin 0.4 mg Q5MINP PRN SL 05/26/24 09:00 Morphine Sulfate 2 mg Q30M PRN IV 05/26/24 09:00 Piperacillin Sod/ Tazobactam Sod 100 ml @ 25 mls/hr Q8H IV 05/26/24 12:00 05/29/24 03:27 25 MLS/HR Clopidogrel Bisulfate 75 mg DAILY PO 05/26/24 10:00 05/26/24 11:05 75 MG Levetiracetam 1,000 mg BID PO 05/26/24 10:00 05/28/24 20:38 1,000 MG Gabapentin 300 mg TID PO 05/26/24 14:00 05/29/24 05:22 300 MG Pantoprazole Sodium 40 mg DAILY IV 05/26/24 10:00 05/27/24 10:07 40 MG Sodium Chloride 1,000 ml @ 100 mls/hr Q10H IV 05/26/24 16:45 05/27/24 22:49 100 MLS/HR Potassium Chloride/Dextrose/ Sod Cl 1,000 ml @ 100 mls/hr Q10H IV 05/28/24 09:00 Hydromorphone HCl 0.5 mg Q3HPRN PRN IV 05/28/24 09:00 05/28/24 16:08 0.5 MG Acetaminophen/ Codeine Phosphate 1 tab Q4HP PRN PO 05/28/24 09:00 05/28/24 13:36 1 TAB Pantoprazole Sodium 40 mg DAILY IV 05/28/24 10:00 Ondansetron HCl 4 mg Q4HPRN PRN IV 05/28/24 09:00 Hydralazine HCl 10 mg Q8HP PRN IV 05/28/24 20:15 05/28/24 22:33 10 MG Cefazolin Sodium 50 ml @ 100 mls/hr Q8HR IV 05/29/24 00:00 05/29/24 00:09 100 MLS/HR Metronidazole 100 ml @ 100 mls/hr Q8HR IV 05/29/24 00:00 05/29/24 00:44 100 MLS/HR Amlodipine Besylate 5 mg DAILY PO 05/29/24 10:00 laboratory and microbiology Laboratory Tests 05/29/24 05:55 05/28/24 17:12 Test 05/28/24 17:12 Range/Units Serum Glucose 111 H 74-106 mg/dL Assessment/Plan Patient is 58-year-old female who presented with abdominal pain/nausea/vomiting. While arriving to emergency room, blood pressure was 211/111. There has been some question about appendicitis. Cardiology is involved for cardiac aspects of care and to provide risk stratification prior to abdominal surgery. Patient herself is very poor historian and can not provide history. She looks cachectic and with poor functional status. 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 Patient herself mentions that she had heart attack over a decade ago. She denies following up with Cardiology as outpatient. No recent chest pain. Cachectic lady, lying flat in bed. Not in acute distress. Mucosa is dry and pink. No JVD. No carotid bruit. Lungs reveal scattered rhonchi. Not using accessory muscles of breathing. Cardiac: Regular, no thrill/gallop. Systolic murmur 1/6 in the apex is heard. Abdomen is firm. Extremities do not reveal edema. 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 Creatinine: 0.77 - 0.83 - 0.88 Potassium: 3.3 - 3.6 - 0.32 CT of the abdomen and pelvis revealed: 1. An elongated tubular structure measuring 4.5 cm and 13 mm in thickness is seen in the right iliac fossa, extending from the cecum. This may represent an inflamed appendix. Its distal end is inadequately visualized due to artifact. There is no appendicolith within. 2. Fatty infiltration of the liver. 3. Prominent pancreatic duct measuring 4 mm. 4. Cortical cysts in both kidneys, the largest measuring 17 mm in the right kidney and 33 mm in the left kidney (Bosniak type I). 5. Bilateral total hip replacement implants, with suboptimal evaluation of the pelvis. 6. Mild subpleural fibrosis in the right lower lobe. Chest x-ray reported: Frontal chest radiograph demonstrates no acute osseous or superficial soft tissue abnormalities. The trachea is midline. The cardiac silhouette and mediastinum are within normal limits. No pneumothorax, pleural effusions, or consolidations. Appendix ultrasound reported: IMPRESSION: 1. Findings concerning for acute appendicitis. Telemetry reveals sinus rhythm Echocardiogram revealed: Left ventricle: Left ventricle is normal-sized with normal systolic function. Borderline concentric left ventricular hypertrophy was seen. There was no wall motion abnormality. LVEF was 65-70%. Right ventricle is normal-sized with normal systolic function. Both atria were minimally dilated. Aortic valve: Aortic valve was trileaflet. There was no aortic stenosis/insufficiency. There was trivial mitral/tricuspid regurgitation. There was trivial/physiologic pulmonary valve insufficiency. As there was no good tricuspid regurgitation jet, right ventricular systolic pressure could not be estimated. There was no echocardiographic evidence for pulmonary hypertension. There was trivial pericardial effusion. Patient is a 58-year-old female who presented with abdominal pain/nausea and vomiting. CT of the abdomen questions appendicitis. Presentation is not in favor of acute coronary syndrome. Cardiology etiology for presentation is not considered at this point. Does have baseline poor functional capacity. There is no recent cardiac episodes. Echocardiogram revealed could left ventricular systolic function and no specific valvular disease. s/p appendectomy Abdominal pain Nausea/vomiting Questionable appendicitis in CT scan Fatty liver Old history of CVA with right hemiparesis Poor functional capacity Hypertension Hyperlipidemia Seizure disorder Opioid dependence Cachectic lady s/p appendectomy Cardiac suggestion for management: Manage on telemetry Follow-up electrolytes and kidney function tests and correct abnormalities Keep potassium above 4 and magnesium above 2 Fluid resuscitation is advised Follow up vital signs and control hypertension Add Amlodipine at 5 mg daily for now On PRN Hydralazine Cardiac-monsivais, the patient is moderate risk patient for moderate risk abdominal surgery. Cardiac-monsivais, you can proceed with abdominal surgery under appropriate intra and postoperative hemodynamic monitoring. Avoid hypotension (s/p appendectomy) Further evaluation and management depends on the above and clinical course A total of 55 minutes was spent reviewing the patient record, examining the patient, making a diagnostic and therapeutic plan, discussing this plan with medical personnel, following up on diagnostic studies and following the patient for clinical stability excluding any and all procedures. At least 50% of this time was spent in direct, [id number] contact. Thank you for allowing me to participate in this patient's care. Further recommendations will depend on patient's clinical course. Please do not hesitate to contact me if you have any questions or concerns. This medical document was created using electronic medical record system with [employer] computerized dictation system. Although this document has been carefully reviewed, there may still be some phonetic and typographical errors. These areas are purely typographical due to the imperfection of the software programs, and do not reflect any compromise in the patient's medical care. Dietary Evaluation Review Comments: Advance to Mechanical soft diet as tolerated diet when medically feasible. Monitor PO intake, Gradual weight gain is possible if pt can accept PO supplement, EnsureEnlive BID Expected Outcomes/Goals: improved strength, and wt gain gradually Plan discussed with: Other (nurse) AKBAR ZAVALA MD May 29, 2024 08:31
[2024-05-29] MEDS: amLODIPine BESYLATE 5 MG TAB PO SCH (08:38)
--- NOTE | 2024-05-29 11:06 | ECG ---
[facility] Test Date: 2024-05-26 Test Time: 12:27:59 Pat Name: HILARIA HART Department: ED Room: [facility] Gender: F Director Of Sports Performance: MOLLY : 1965 Requested By: ANSELMO LEON Order Number: [id number] Reading MD: Lloyd Ho Measurements Intervals [place] Rate: 58 P: 41 TN: 128 QRS: 9 QRSD: 68 T: 76 QT: 449 QTc: 442 Interpretive Statements Sinus rhythm Anterior infarct, old Electronically Signed On 05-29-2024 13:04:44 PST by Lloyd Ho Please click the below link to view image of tracing.
--- NOTE | 2024-05-29 12:29 | DVHPN2 ---
Progress Note - Dictate Date Seen: May 29, 2024 Medical Necessity Reason Pt with a Central, PICC or Fol: No vital signs Vital Sign Date Time Temp Pulse Resp B/P (MAP) Pulse Ox O2 Delivery O2 Flow Rate FiO2 05/29/24 11:05 132 213/131 (158) 05/29/24 09:58 98.8 16 98 98.8 05/28/24 20:00 Room Air* 0 21 Total Intake and Output 05/28/24 05/28/24 05/29/24 15:00 23:00 07:00 Intake Total 100 ml 150 ml 600 ml Output Total 200 ml 500 ml 600 ml Balance -100 ml -350 ml 0 ml medications Current Medications Medications Dose Ordered Sig/Wilber Route Start Time Stop Time Status Last Admin Dose Admin Enoxaparin Sodium 40 mg DAILY SC 05/26/24 10:00 05/29/24 08:40 40 MG Acetaminophen 650 mg Q6HP PRN PO 05/26/24 09:00 05/26/24 22:56 650 MG Nitroglycerin 0.4 mg Q5MINP PRN SL 05/26/24 09:00 Morphine Sulfate 2 mg Q30M PRN IV 05/26/24 09:00 Clopidogrel Bisulfate 75 mg DAILY PO 05/26/24 10:00 05/29/24 08:38 75 MG Levetiracetam 1,000 mg BID PO 05/26/24 10:00 05/29/24 08:36 1,000 MG Gabapentin 300 mg TID PO 05/26/24 14:00 05/29/24 05:22 300 MG Potassium Chloride/Dextrose/ Sod Cl 1,000 ml @ 100 mls/hr Q10H IV 05/28/24 09:00 Hydromorphone HCl 0.5 mg Q3HPRN PRN IV 05/28/24 09:00 05/28/24 16:08 0.5 MG Acetaminophen/ Codeine Phosphate 1 tab Q4HP PRN PO 05/28/24 09:00 05/28/24 13:36 1 TAB Pantoprazole Sodium 40 mg DAILY IV 05/28/24 10:00 Ondansetron HCl 4 mg Q4HPRN PRN IV 05/28/24 09:00 Hydralazine HCl 10 mg Q8HP PRN IV 05/28/24 20:15 05/29/24 08:39 10 MG Cefazolin Sodium 50 ml @ 100 mls/hr Q8HR IV 05/29/24 00:00 05/29/24 08:32 100 MLS/HR Metronidazole 100 ml @ 100 mls/hr Q8HR IV 05/29/24 00:00 05/29/24 08:34 100 MLS/HR Amlodipine Besylate 5 mg DAILY PO 05/29/24 10:00 05/29/24 08:38 5 MG objective General Appearance: alert, no distress HEENT: EOMI, PERRLA, normal external inspect of ears, no icterus, no nasal drainage Neck: no carotid bruit, no jugular venous distention (JVD), no lymphadenopathy Chest: normal thorax Respiratory: clear to auscultation, normal air movement Cardiovascular: regular rate and rhythm, no diastolic murmur, no jugular venous distention (JVD), no rub, no systolic murmur Abdominal: soft, no hepatomegaly, no mass, no splenomegaly, no tenderness Genitourinary: grossly normal external Musculoskeletal: no joint tenderness, no swelling Extremities: normal pulses, no calf tenderness, no clubbing, no cyanosis, no edema Skin: no bruising, no jaundice, no rash Neurological: alert, No focal deficit laboratory and microbiology Laboratory Tests 05/29/24 05:55 05/28/24 17:12 Test 05/28/24 17:12 Range/Units Serum Glucose 111 H 74-106 mg/dL Problem List 1.Abdominal pain likely from appendicitis Surgical consult, IV fluids, IV antibiotics, cardiac consult for clearance 2. history of CVA 3. HTN continue with home medication 4. HLD continue with home medication 5. seizures continue with keppra 1000 MG BID 6. opioid dependence 7. cachectic lady 8. Hypokalemia Replace Assessment/Plan Subjective Patient is awake and alert. Objective Patient is status laparoscopic appendectomy. Patient having some nausea and abdominal pain. Plan Advance diet. Continue antiemetics and pain medication as needed. Patient to ambulate. Dietary Evaluation Review Comments: Advance to Mechanical soft diet as tolerated diet when medically feasible. Monitor PO intake, Gradual weight gain is possible if pt can accept PO supplement, EnsureEnlive BID Expected Outcomes/Goals: improved strength, and wt gain gradually Plan discussed with: Patient, Other ZULLY ESTEVES NP May 29, 2024 12:28
[2024-05-30] VITALS (7 sets, daily range): BP systolic 147–192; BP diastolic 95–111; PULSE 68–79; RESP 17–18; TEMP 98.8; O2SAT 96–100
[2024-05-30] MEDS: ONDANSETRON HCL 4 MG/2 ML VIAL IV PRN (04:31)
--- NOTE | 2024-05-30 09:25 | DVHPN2 ---
Progress Note Date Seen: May 30, 2024 Medical Necessity Reason Pt with a Central, PICC or Fol: No Objective vital signs Vital Sign Date Time Temp Pulse Resp B/P (MAP) Pulse Ox O2 Delivery O2 Flow Rate FiO2 05/30/24 09:00 98.8 68 17 148/103 (118) 100 98.8 05/29/24 20:00 Room Air* 0 21 Total Intake and Output 05/29/24 05/29/24 05/30/24 15:00 23:00 07:00 Intake Total 620 ml 570 ml 450 ml Output Total 1000 ml 500 ml Balance 620 ml -430 ml -50 ml medications Current Medications Medications Dose Ordered Sig/Wilber Route Start Time Stop Time Status Last Admin Dose Admin Enoxaparin Sodium 40 mg DAILY SC 05/26/24 10:00 05/29/24 08:40 40 MG Acetaminophen 650 mg Q6HP PRN PO 05/26/24 09:00 05/26/24 22:56 650 MG Nitroglycerin 0.4 mg Q5MINP PRN SL 05/26/24 09:00 Morphine Sulfate 2 mg Q30M PRN IV 05/26/24 09:00 Clopidogrel Bisulfate 75 mg DAILY PO 05/26/24 10:00 05/29/24 08:38 75 MG Levetiracetam 1,000 mg BID PO 05/26/24 10:00 05/29/24 21:15 1,000 MG Gabapentin 300 mg TID PO 05/26/24 14:00 05/30/24 06:50 300 MG Potassium Chloride/Dextrose/ Sod Cl 1,000 ml @ 100 mls/hr Q10H IV 05/28/24 09:00 Hydromorphone HCl 0.5 mg Q3HPRN PRN IV 05/28/24 09:00 05/30/24 08:31 0.5 MG Acetaminophen/ Codeine Phosphate 1 tab Q4HP PRN PO 05/28/24 09:00 05/28/24 13:36 1 TAB Pantoprazole Sodium 40 mg DAILY IV 05/28/24 10:00 Ondansetron HCl 4 mg Q4HPRN PRN IV 05/28/24 09:00 05/30/24 04:31 4 MG Hydralazine HCl 10 mg Q8HP PRN IV 05/28/24 20:15 05/30/24 00:59 10 MG Amlodipine Besylate 5 mg DAILY PO 05/29/24 10:00 05/29/24 08:38 5 MG Metronidazole 100 ml @ 100 mls/hr Q8H IV 05/29/24 16:00 05/30/24 08:18 100 MLS/HR Cefazolin Sodium 50 ml @ 100 mls/hr Q8H IV 05/29/24 15:00 05/30/24 06:50 100 MLS/HR laboratory and microbiology Laboratory Tests 05/29/24 05:55 05/28/24 17:12 Test 05/28/24 17:12 Range/Units Serum Glucose 111 H 74-106 mg/dL Problem List/Assessment/Plan Problem List/Assessment/Plan 05/28/24 persistent abdominal pain, persistent abdominal tenderness, ultrasound coincides with ct scan, will proceed with appendectomy, operation risks and complications explained to patient in person and patient's daughter by phone (patient seen yesterday and this morning prior to operation) 05/30/24 feels well, tolerating po, wants top go home, abdomen soft and appropriately tender, non distended, wounds clean and well approximated, she is cleared for discharge with po antibiotic and pain Rx, to return to see mew in two weeks in the office Plan discussed with: Patient Dietary Evaluation Review Comments: Advance to Mechanical soft diet as tolerated diet when medically feasible. Monitor PO intake, Gradual weight gain is possible if pt can accept PO supplement, EnsureEnlive BID Expected Outcomes/Goals: improved strength, and wt gain gradually JUAN KENNY MD May 30, 2024 09:25
[2024-05-30] MEDS ORDERED: HYDR-4798 PO (11:22)
[2024-05-30] MEDS ORDERED: CEPH500C PO (11:22)
[2024-05-30] MEDS ORDERED: AMLO1TAB23 PO (11:22)
[2024-05-30] MEDS ORDERED: METR-344 PO (11:22)
--- NOTE | 2024-05-30 11:24 | DVHDS2 ---
Discharge Summary Date of Admission May 26, 2024 at 08:57 Date of Discharge: May 30, 2024 Labs/Diagnostic Data: Laboratory Results Test 05/29/24 05:55 05/28/24 17:12 05/27/24 13:33 05/27/24 10:45 White Blood Count 7.6 10^3/uL (4.4-10.8) Red Blood Count 4.14 10^6/uL (4.0-5.20) Hemoglobin 12.6 g/dL (12.2-16.2) Hematocrit 36.9 % (36.0-46.0) Mean Corpuscular Volume 89.1 fL (80.0-100.0) Mean Corpuscular Hemoglobin 30.4 pg (28.0-32.0) Mean Corpuscular Hemoglobin Concent 34.1 g/dL (32.0-36.0) Red Cell Distribution Width 12.4 % (11.8-14.3) Platelet Count 112 10^3/uL (140-450) Mean Platelet Volume 10.4 fL (6.9-10.8) Neutrophils (%) (Auto) 66.3 % (37.0-80.0) Lymphocytes (%) (Auto) 26.6 % (10.0-50.0) Monocytes (%) (Auto) 6.5 % (0.0-12.0) Eosinophils (%) (Auto) 0.2 % (0.0-7.0) Basophils (%) (Auto) 0.4 % (0.0-2.0) Neutrophils # (Auto) 5.0 10 ^3/uL (1.6-8.6) Lymphocytes # (Auto) 2.0 10 ^3/uL (0.4-5.4) Monocytes # (Auto) 0.5 10 ^3/uL (0-1.3) Eosinophils # (Auto) 0 10 ^3/uL (0-0.8) Basophils # (Auto) 0 10 ^3/uL (0-0.2) Nucleated Red Blood Cells 0.0 % Sodium Level 145 mmol/L (136-145) Potassium Level 3.2 mmol/L (3.5-5.1) Chloride Level 116 mmol/L (98-107) Carbon Dioxide Level 21 mmol/L (20-31) Anion Gap 8 (5-15) Blood Urea Nitrogen 15 mg/dL (9-23) Creatinine 0.88 mg/dL (0.550-1.02) Glomerular Filtration Rate Calc 75 mL/min (>90) BUN/Creatinine Ratio 17.0 (10.0-20.0) Serum Glucose 111 mg/dL (74-106) Calcium Level 9.5 mg/dL (8.7-10.4) Total Bilirubin 0.4 mg/dL (0.2-1.0) Aspartate Amino Transferase (AST) 15 U/L (13-40) Alanine Aminotransferase (ALT) 10 U/L (7-40) Alkaline Phosphatase 77 U/L (46-116) Total Protein 7.3 g/dL (5.7-8.2) Albumin 4.2 g/dL (3.2-4.8) Magnesium Level 1.8 mg/dL (1.6-2.6) Prothrombin Time 11.4 sec (9.3-11.8) Prothrombin Time INR 1.08 (0.9-1.15) Activated Partial Thromboplast Time 26.6 SEC (24.5-34.5) Test 05/26/24 16:24 05/25/24 20:27 Urine Color Light-yellow (Yellow) Urine Clarity Clear (Clear) Urine pH 6.5 (5.0-9.0) Urine Specific [place] 1.028 (1.001-1.035) Urine Protein 3+ (Negative) Urine Ketones Negative (Negative) Urine Blood 2+ /uL (Negative) Urine Nitrite Negative (Negative) Urine Bilirubin Negative (Negative) Urine Urobilinogen Normal mg/dL (Negative) Urine Leukocyte Esterase Negative /uL (Negative) Urine RBC 16 /hpf (0 - 4) Urine WBC 19 /hpf (0 - 5) Urine Squamous Epithelial Cells Few /hpf (<5) Urine Bacteria None seen /hpf (None Seen) Urine Glucose Normal mg/dL (Normal) Lipase 41 U/L (12-53) Other Laboratory Tests 05/29/24 05:55 05/28/24 17:12 Brief Hx & Hospital Course: 58-year-old female with a history of CVA, hypertension, seizures presents to the emergency room for nausea vomiting and acute abdominal pain. Patient is a poor historian Patient was admitted 05/29/2024 for abdominal pain. Patient is status post laparoscopic appendectomy Dr. Chandler. Patient was started on antibiotics. Patient was cleared for discharge. Patient is tolerating a soft diet. I did give discharge instructions to patient daughter who is caregiver. Patient will follow-up with her PCP in 1 week and surgeon in 2 weeks. The patient received proper medical treatment and medications. Vital signs, Imaging and Laboratory Work was monitored daily. All consults recommendations were followed as provided. There were no complaints or new complaints upon discharge, all questions and concerns were answered. Patient was advised to return to the ER or call 911 if any headaches, dizziness, shortness of breath, chest pain, bleeding, fevers, or worsening of medical condition. Patient/Family was counseled about treatment plan, medications, possible side effects, patient verbalized understanding. All questions were answered to the best of my ability. The patient symptoms improved and they are okay to be DC. Condition at Discharge: Stable Final Diagnosis/Problems List s/p Lap Appy Abdominal pain Hx CVA HTN HLD Seizures Opioid dependance Hypokalemia Discharge Disposition: Home Discharge Instruct/Medications Diet: Regular Diet comment: Mechanical soft Activity: No Restrictions, As Tolerated Follow Up/Referral: pcp 1 week Discharge Statement: "Patient was advised to return to the ER or call 911 if any headaches, dizziness, shortness of breath, chest pain, abdominal pain, bleeding, fevers, or worsening of medical condition. Patient was counseled about treatment plan, medications, possible side effects, patientverbalized understanding. All questions were answered to the best of my ability. This discharge took greater then 30 minutes in planning, reviewing documentation, counseling the patient, and discussing with other team members." ASSESSMENT ASSESSMENT Assessment s/p Lap ZULLY Disla NP May 30, 2024 11:24
== END 2024-05-30 14:28 | disposition home or self-care (01) | DRG 234 ==
LOC: EDBD 19:39 → ER 19:39 → TELE 05-26 08:57 → TELE-WESTW 05-26 23:00
PROVIDERS: ADMIT Nurse Practitioner Family; ATTEND Nurse Practitioner Family
PROC: 05HA33Z Insertion of Infusion Device into Left Brachial Vein, Percutaneous Approach (ICD-10-PCS; 2024-05-27)
PROC: B54NZZA Ultrasonography of Left Upper Extremity Veins, Guidance (ICD-10-PCS; 2024-05-27)
PROC: 0DTJ4ZZ Resection of Appendix, Percutaneous Endoscopic Approach (ICD-10-PCS; principal; 2024-05-28 07:55)
DX: K37 Unspecified appendicitis (principal); R64 Cachexia; I50.9 Heart failure, unspecified; I69.351 Hemiplegia and hemiparesis following cerebral infarction affecting right dominant side; K76.0 Fatty (change of) liver, not elsewhere classified; I11.0 Hypertensive heart disease with heart failure; R47.01 Aphasia; Z96.653 Presence of artificial knee joint, bilateral; F41.9 Anxiety disorder, unspecified; G40.909 Epilepsy, unspecified, not intractable, without status epilepticus; F11.20 Opioid dependence, uncomplicated; E87.6 Hypokalemia; Z96.643 Presence of artificial hip joint, bilateral; E78.5 Hyperlipidemia, unspecified; Z68.1 Body mass index [BMI] 19.9 or less, adult; Z83.3 Family history of diabetes mellitus; Z82.49 Family history of ischemic heart disease and other diseases of the circulatory system; Z80.3 Family history of malignant neoplasm of breast; Z87.891 Personal history of nicotine dependence; Z91.148 Patient's other noncompliance with medication regimen for other reason; I25.2 Old myocardial infarction
CPT/HCPCS: 36415; 71045; 74177; 76705; 80053; 81001; 83690; 83735; 85025; 85610; 85730; 86850; 86900; 86901; 87040; 93005; 93306; 99291; G0378; J2250; J2405; J2470; J2543; J2704; J3490

== ENCOUNTER 2024-08-21 03:15 | Emergency (ER) | payer MEDICAID ==
[~2024-08-21] VITALS: Ht 162.6 cm; Wt 59.0 kg
[~2024-08-21 03:15] MED LIST: AMLO1TAB23 PO; CEPH500C PO; CLOP75TA70 PO; GABA-1250 PO; HYDR-4798 PO; LEVE500T40 PO; METR-344 PO; MORP15TA PO; TRAZ-228 PO
[2024-08-21] MEDS: SODIUM CHLORIDE 0.9% 1,000 ML IV ONE (04:00)
[2024-08-21] MEDS: ONDANSETRON ODT 4 MG TAB PO ONE (04:00)
--- NOTE | 2024-08-21 04:07 | ED.PDOC ---
GI ASSESSMENT HPI Comments 59-YEAR-OLD FEMALE PRESENTS TO ER WITH COMPLAINTS OF ABDOMINAL PAIN X2 DAYS. PATIENT REPORTS THAT SHE STARTED EXPERIENCING LOWER ABDOMINAL PAIN, DIARRHEA, NAUSEA AND CHILLS WITH ASSOCIATED COUGH 2 DAYS AGO. SHE RATES HER CURRENT PAIN A 9/10. DENIES USE OF MEDICATIONS FOR CURRENT SYMPTOMS. PATIENT PRESENTS TO ER AFEBRILE, IN MILD DISTRESS. DENIES SHORTNESS OF BREATH, CHEST PAIN, VOMITING, HEADACHE, DIZZINESS, KNOWN EXPOSURE TO SICK CONTACTS, PELVIC PAIN, BACK/FLANK PAIN, BLOODY DIARRHEA, CHANGES IN URINATION OR ANY FURTHER SYMPTOMS/COMPLAINTS Chief Complaint: Abdominal Pain Time Seen by MD: 03:46 Allergies: Coded Allergies: NO KNOWN ALLERGIES (Unverified , 01/29/23) Home Meds Active Scripts Acetaminophen (Acetaminophen) 500 Mg Tab, 500 MG PO Q4HPRN, #30 TAB 0 Refills Prov:TANESHA MCGARRY 08/21/24 Ciprofloxacin Hcl (Ciprofloxacin Hcl) 500 Mg Tab, 1 TAB PO BID for 7 Days, #14 TAB 0 Refills Prov:TANESHA MCGARRY 08/21/24 Metronidazole (Flagyl) 500 Mg Tab, 1 TAB PO TID, #30 TAB Prov:ZULLY ESTEVES FIG CAPRIFIER 05/30/24 Cephalexin Monohydrate (Cephalexin) 500 Mg Cap, 1 CAP PO QID, #40 CAP Prov:ZULLY ESTEVES FIG CAPRIFIER 05/30/24 Amlodipine Besylate (Amlodipine Besylate) 10 Mg Tab, 1 TAB PO DAILY, #30 TAB 5 Refills Prov:ZULLY ESTEVES FIG CAPRIFIER 05/30/24 Hydrocodone-Acetaminophen (Hydrocodone Bitartrate/AC 10-325 mg) 1 Tab Tab, 1 TAB PO Q6HPRN PRN for 7 Days, #28 TAB Prov:ZULLY ESTEVES NP 05/30/24 Reported Medications Morphine Sulfate (Morphine Sulfate) 15 Mg Tab, 15 MG PO, TAB 05/27/24 Clopidogrel Bisulfate (CLOPIDOGREL) 75 Mg Tab, 75 MG PO DAILY for 30 Days, MG 05/27/24 Gabapentin (Gabapentin) 300 Mg Cap, 300 MG PO for 30 Days, MG 05/27/24 Trazodone Hcl (Trazodone Hcl) 100 Mg Tab, 100 MG PO, MG 05/27/24 Levetiracetam (Keppra) 500 Mg Tab, 3 TAB PO BID, #180 TAB 3 Refills 05/27/24 Mode of Arrival: EMS Past Medical History PAST MEDICAL HISTORY: Anxiety, 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), High Lipids, HTN, Seizures Past Medical History (Other): LUPUS Surgical History: Appendectomy INDUSTRIAL HYGIENE TECHNICIAN History: No Pertinent INDUSTRIAL HYGIENE TECHNICIAN History Family History Family History: Unknown Social History Smoker: Non-Smoker Alcohol: Denies ETOH Use Drugs: Marijuana Lives In: Home Constitutional: reports: others ( STATED IN HPI) EENTM: denies: blurred vision, double vision, ear bleeding, ear discharge, ear drainage, ear pain, ear ringing, eye pain, eye redness, hearing loss, mouth pain , mouth swelling, nasal discharge, nose bleeding, nose congestion, nose pain, photophobia, tearing, throat pain, throat swelling, voice changes, others Respiratory: reports: others ( STATED IN HPI) Cardiovascular: denies: chest pain, dizzy spells, diaphoresis, Dyspnea on exertion, edema, irregular heart beat, left arm pain, lightheadedness, palpitations, PND, syncope, others Gastrointestinal: reports: others ( STATED IN HPI) Genitourinary: denies: abnormal vagina bleeding, burning, dyspareunia, dysuria, flank pain, frequency, hematuria, incontinence, pain, , vagina discharge, urgency, others Neurological: denies: dizziness, fainting, headache, left sided numbness, left sided weakness, numbness, paresthesia, pre-existing deficit, right sided numbness, right sided weakness, seizure, speech problems, tingling, tremors, weakness, others Musculoskeletal: denies: back pain, gout, joint pain, joint swelling, muscle pain, muscle stiffness, neck pain, others Integumetry: denies: bruises, change in color, change in hair/nails, dryness, laceration, lesions, lumps, rash, wounds, others Allergic/Immunocompromised: denies: Difficulty Healing, Frequent Infections, Hives, Itching, others Hematologic/Lymphatic: denies: anemia, blood clots, easy bleeding, easy bruising, swollen glands, others Endocrine: denies: excessive hunger, excessive sweating, excessive thirst, excessive urination, flushing, intolerance to cold, intolerance to heat, unexplained weight gain, unexplained weight loss, others Psychiatric: denies: anxiety, bipolar disorder, depression, hopeless, panic disorder, schizophrenia, sleepless, suicidal, others Physical Exam General Appearance: Mild Distress HEENT: Normal ENT Inspection, PERRL/EOMI, Pharynx Normal, TMs Normal Neck: Full Range of Motion, Non-Tender, Normal Respiratory: Chest Non-Tender, Lungs Clear, No Accessory Muscle Use, No Respiratory Distress, Normal Breath Sounds Cardiovascular: No Murmur, No Gallop, Regular Rate/Rhythm Breast Exam: Deferred Gastrointestinal: No Organomegaly, No Pulsatile Mass, Normal Bowel Sounds, RLQ (SLIGHT TTP NOTED. NO REBOUND/GURADING NOTED. NO HERNIAS/MASSES NOTED. SCARS NOTED FROM PRIOR APPENDECTOMY. NO OTHER TTP TO ABDOMEN/PELVIC REGION NOTED), Soft Genitalia: Deferred Pelvic: Deferred Rectal: Deferred Extremities: Normal capillary refill Musculoskeletal : Extremity Location: Back (NO TTP TO BILATERAL FLANKS/CVA TENDERNESS NOTED BILATERALLY) Neurologic: Alert, insulation board back tender II-XII nml as Tested, Normal Affect, Normal Mood, No Sensory Deficits, Other (DIFFUSE RIGHT-SIDED WEAKNESS NOTED THAT PATIENT REPORTS IS CHRONIC FROM PRIOR CVA IN 2016) Cerebellar Function: Other (NO ATAXIA) Reflexes: Normal Skin: Dry, Normal Color, Warm Lymphatic: No Adenopathy EKG EKG : Pulse Rate (adult): 81 Cardiac Rhythm: NSR (SR) Block: None Hypertrophy: None Was a procedure done? Was a procedure done?: No Sedation Sedation?: No GI differential Dx Differential Diagnosis: Appendicitis, GI hemorrhage, Ischemic Bowel, Trauma intraabdominal, UTI X-Ray, Labs, Meds, VS Vital Signs Date Time Temp Pulse Resp B/P (MAP) Pulse Ox O2 Delivery O2 Flow Rate FiO2 08/21/24 08:00 98.1 58 16 120/58 (78) 95 98.1 08/21/24 07:05 60 12 150/60 08/21/24 06:30 65 14 158/47 08/21/24 06:00 70 16 149/93 (111) 98 08/21/24 05:00 80 14 145/80 08/21/24 04:29 75 17 138/80 08/21/24 04:20 65 16 98 Room Air* 0 21 08/21/24 04:07 81 08/21/24 04:00 98.2 65 14 132/68 (89) 98 98.2 08/21/24 03:30 81 08/21/24 03:22 98.7 84 18 138/93 (108) 98 98.7 Lab Test 08/21/24 04:21 08/21/24 04:00 Range/Units White Blood Count 10.0 4.4-10.8 10^3/uL Red Blood Count 4.53 4.0-5.20 10^6/uL Hemoglobin 13.7 12.2-16.2 g/dL Hematocrit 40.9 36.0-46.0 % Mean Corpuscular Volume 90.1 80.0-100.0 fL Mean Corpuscular Hemoglobin 30.2 28.0-32.0 pg Mean Corpuscular Hemoglobin Concent 33.5 32.0-36.0 g/dL Red Cell Distribution Width 12.5 11.8-14.3 % Platelet Count 265 140-450 10^3/uL Mean Platelet Volume 8.4 6.9-10.8 fL Neutrophils (%) (Auto) 78.0 37.0-80.0 % Lymphocytes (%) (Auto) 16.0 10.0-50.0 % Monocytes (%) (Auto) 4.7 0.0-12.0 % Eosinophils (%) (Auto) 0.8 0.0-7.0 % Basophils (%) (Auto) 0.5 0.0-2.0 % Neutrophils # (Auto) 7.8 1.6-8.6 10 ^3/uL Lymphocytes # (Auto) 1.6 0.4-5.4 10 ^3/uL Monocytes # (Auto) 0.5 0-1.3 10 ^3/uL Eosinophils # (Auto) 0.1 0-0.8 10 ^3/uL Basophils # (Auto) 0 0-0.2 10 ^3/uL Nucleated Red Blood Cells 0.1 % Sodium Level 140 136-145 mmol/L Potassium Level 3.7 3.5-5.1 mmol/L Chloride Level 115 H 98-107 mmol/L Carbon Dioxide Level 19 L 20-31 mmol/L Anion Gap 6 5-15 Blood Urea Nitrogen 8 L 9-23 mg/dL Creatinine 0.90 0.550-1.02 mg/dL Glomerular Filtration Rate Calc 73 >90 mL/min BUN/Creatinine Ratio 8.9 L 10.0-20.0 Serum Glucose 109 H 74-106 mg/dL Calcium Level 10.2 8.7-10.4 mg/dL Total Bilirubin 0.3 0.2-1.0 mg/dL Aspartate Amino Transferase (AST) 16 13-40 U/L Alanine Aminotransferase (ALT) 25 7-40 U/L Alkaline Phosphatase 99 46-116 U/L Troponin I High Sensitivity 9 </=34 ng/L Total Protein 8.8 H 5.7-8.2 g/dL Albumin 5.2 H 3.2-4.8 g/dL Lipase 147 H 12-53 U/L Urine Color Light-yellow Yellow Urine Clarity Clear Clear Urine pH 6.0 5.0-9.0 Urine Specific [place] 1.015 1.001-1.035 Urine Protein Trace H Negative Urine Ketones Negative Negative Urine Blood Negative Negative /uL Urine Nitrite Negative Negative Urine Bilirubin Negative Negative Urine Urobilinogen Normal Negative mg/dL Urine Leukocyte Esterase Negative Negative /uL Urine RBC 1 0 - 4 /hpf Urine Microscopic WBC 1 0-5 /HPF Urine Squamous Epithelial Cells Few <5 /hpf Urine Bacteria None seen None Seen /hpf Urine Glucose Normal Normal mg/dL Influenza Type A Antigen Negative Negative Influenza Type B Antigen Negative Negative SARS-CoV-2 Antigen (Rapid) Negative NEGATIVE Current Medications Medications (Trade) Dose Ordered Sig/Wilber Route Start Time Stop Time Status Last Admin Sodium Chloride 1,000 ml @ 1,000 mls/hr Q1H ONCE IV 08/21/24 04:00 08/21/24 04:59 DC 08/21/24 04:00 Morphine Sulfate 2 mg ONCE ONCE IV 08/21/24 04:00 08/21/24 04:01 DC 08/21/24 04:29 Ondansetron HCl (Zofran Po) 4 mg ONCE ONCE PO 08/21/24 04:00 08/21/24 04:01 DC 08/21/24 04:00 Morphine Sulfate 2 mg ONCE ONCE IV 08/21/24 06:00 08/21/24 06:01 DC 08/21/24 06:30 PATIENT: HILARIA HART ACCT: [id number] UNIT: [id number] : 1965 LOC: ER ROOM / BED: / AGE / SEX: 59 / F ADM STATUS: REG ER SERVICE [id number] ORDERING PHYSICIAN: TANESHA MCGARRY PROCEDURE(s): CXR1 - CHEST XRAY 1 VIEW REASON: COUGH ORDER NUMBER(s): [id number], ACCESSION NUMBER(s): [id number] CHEST RADIOGRAPH Indication: COUGH Technique: Single frontal view of the chest was obtained Comparison: XY CHEST XRAY 1 VIEW on DOS: 05/26/24, XY CHEST XRAY 1 VIEW on DOS: 01/29/23 FINDINGS: Lines and Tubes: None Lungs: No focal consolidation. Pleura: No effusion. No pneumothorax. Cardiomediastinal contours: Unremarkable Bones: No acute osseous abnormality. IMPRESSION: No acute cardiopulmonary disease. ATED BY: PATRICIO MAURICE MD DICTATED DATE/TIME: 08/21/24521 SIGNED BY: PATRICIO MAURICE MD SIGNED DATE/TIME: 08/21/24521 CC: PATIENT: HILARIA HART ACCT: [id number] UNIT: [id number] : 1965 LOC: ER ROOM / BED: / AGE / SEX: 59 / F ADM STATUS: REG ER SERVICE [id number] ORDERING PHYSICIAN: TANESHA MCGARRY PROCEDURE(s): ABPL - CT AB PEL WO CON-NO ORAL OR IV REASON: ABDOMINAL PAIN ORDER NUMBER(s): [id number], ACCESSION NUMBER(s): [id number] EXAM: CT Abdomen and Pelvis Without Intravenous Contrast CLINICAL INDICATION: ABDOMINAL PAIN TECHNIQUE: Axial computed tomography images of the abdomen and pelvis without intravenous contrast. This CT exam was performed using one or more of the following dose reduction techniques: automated exposure control, adjustment of the mA and/or kV according to patient size, and/or use of iterative reconstruction technique. CONTRAST: RADIATION DOSE: CTDIvol = 6.97 mGy, DLP = 331.67 mGy-cm COMPARISON: CT CT AB PEL WO CON-NO ORAL OR IV on DOS: 01/29/23 FINDINGS: ARTIFACTS: Beam hardening artifacts. Motion artifact. LUNG BASES: Unremarkable. No mass. No consolidation. ABDOMEN: LIVER: Unremarkable. GALLBLADDER AND BILE DUCTS: Unremarkable. No calcified stones. No ductal dilation. PANCREAS: Unremarkable. No ductal dilation. SPLEEN: Unremarkable. No splenomegaly. ADRENALS: Unremarkable. No mass. KIDNEYS AND URETERS: Prominent bilateral renal pelvis without obstruction. However, distal assessment is limited secondary to beam hardening artifacts from the hip replacement. STOMACH AND BOWEL: Fecal retention in the colon consistent with constipation. No obstruction. No mucosal thickening. PELVIS: APPENDIX: No findings to suggest acute appendicitis. BLADDER: Unremarkable. No stones. REPRODUCTIVE: Unremarkable as visualized. ABDOMEN and PELVIS: INTRAPERITONEAL SPACE: Unremarkable. No free air. No significant fluid collection. BONES/JOINTS: See above. SOFT TISSUES: Unremarkable. VASCULATURE: Scattered calcified atherosclerotic disease of aorta. No abdominal aortic aneurysm. LYMPH NODES: Unremarkable. No enlarged lymph nodes. OTHER FINDINGS: . . IMPRESSION: 1. Prominent bilateral renal pelvis without obstruction. However, distal assessment is limited secondary to beam hardening artifacts from the hip replacement. 2. Fecal retention in the colon consistent with constipation. ATED BY: AKBAR OLMSTEAD MD DICTATED DATE/TIME: 08/21/24528 SIGNED BY: AKBAR OLMSTEAD MD SIGNED DATE/TIME: 08/21/24528 CC: CBC REVIEWED- NORMAL CMP REVIEWED WITHOUT ANY SIGNIFICANT ABNORMALITIES URINALYSIS REVIEWED- UNREMARKABLE TROPONIN REVIEWED - NORMAL HEP-LOCK IV ORDERED NS 1 L IV ORDERED MORPHINE 4 MG IV ORDERED ZOFRAN 4 MG P.O. ORDERED EKG REVIEWED PATIENT HAD IMPROVEMENT IN SYMPTOMS AND IN NO DISTRESS PRIOR TO DISCHARGE DIET EDUCATION DISCUSSED CT IMAGING REVIEWED AND DISCUSSED WITH DR. LYNN WHO'S AGREEABLE THAT PATIENT CAN BE DISCHARGED HOME WITH OUTPATIENT UROLOGY FOLLOW-UP ADVISED TO FOLLOW UP WITH PCP AND UROLOGY IN 1-2 DAYS PATIENT VERBALIZED UNDERSTANDING AND AGREEABLE WITH CURRENT PLAN OF CARE ADVISED TO RETURN TO ER IMMEDIATELY IF SYMPTOMS WORSEN Images Reviewed?: Images reviewed and evaluated by me Time of 1ST Reevaluation: 04:12 Reevaluation 1ST: N/A Patient Education/Counseling: Diagnosis, Treatment, Prognosis, Need For Follow Up Family Education/Counseling: No Family Present Departure 1 Departure Time of Disposition: 05:32 Impression: Primary Impression: Gastroenteritis Additional Impressions: Viral URI Bilateral renal cysts Disposition: HOME / SELF CARE / HOMELESS Condition: Stable e-Prescriptions Acetaminophen (Acetaminophen) 500 Mg Tab 500 MG PO Q4HPRN, #30 TAB 0 Refills Prov: TANESHA MCGARRY 08/21/24 Ciprofloxacin Hcl (Ciprofloxacin Hcl) 500 Mg Tab 1 TAB PO BID for 7 Days, #14 TAB 0 Refills Prov: TANESHA MCGARRY 08/21/24 Discharged With: Friend Critical Care Note Critical Care Time?: No Stability Stability form required: No Heart Score Heart Score: Heart Score Response (Comments) Value History N/A 0 EKG N/A 0 Age N/A 0 Risk Factors N/A 0 Troponin N/A 0 Total 0 TANESHA MCGARRY Aug 21, 2024 04:07
[2024-08-21 04:20] VITALS: PULSE 65; RESP 16; O2SAT 98
[2024-08-21] MEDS: MORPHINE SULFATE INJ 2 MG/ml SYRG IV ONE ×2 (04:29→06:30)
[2024-08-21 04:30] LABS: Basophils # (auto) 0 10 ^3/uL (0-0.2); Basophils % (auto) 0.5 % (0.0-2.0); Eosinophils # (auto) 0.1 10 ^3/uL (0-0.8); Eosinophils % (auto) 0.8 % (0.0-7.0); Hematocrit 40.9 % (36.0-46.0); Hemoglobin 13.7 g/dL (12.2-16.2); Lymphocytes # (auto) 1.6 10 ^3/uL (0.4-5.4); Mean Corpuscular Hemoglobin 30.2 pg (28.0-32.0); Mean Corpuscular Hgb Conc. 33.5 g/dL (32.0-36.0); Mean Corpuscular Volume 90.1 fL (80.0-100.0); Monocytes # (auto) 0.5 10 ^3/uL (0-1.3); Monocytes % (auto) 4.7 % (0.0-12.0); Neutrophils # (auto) 7.8 10 ^3/uL (1.6-8.6); Nucleated Red Blood Cells % 0.1 %; Platelet Count (auto) 265 10^3/uL (140-450); Red Blood Cells 4.53 10^6/uL (4.0-5.20); Red Cell Distribution Width 12.5 % (11.8-14.3)
[2024-08-21 04:32] LABS: COVID19 ANTIGEN SOFIA FIA NEGATIVE (NEGATIVE); Rapid Influenza A Negative (Negative); Rapid Influenza B Negative (Negative)
[2024-08-21 04:46] LABS: Urine Bacteria None Seen /hpf (None Seen)
[2024-08-21 04:50] LABS: Urine Blood Negative /uL (Negative); Urine Clarity Clear (Clear); Urine Color Light-Yellow (Yellow); Urine Protein, UAD TRACE (Negative); Urine Specific Gravity 1.015 (1.001-1.035); Urine Squamous Epithelial Cell FEW /hpf (<5); Urine Urobilinogen Normal (Negative); Urine WBC 1 /HPF (0-5)
--- NOTE | 2024-08-21 05:24 | DVH ---
CHEST RADIOGRAPH Indication: COUGH Technique: Single frontal view of the chest was obtained Comparison: XY CHEST XRAY 1 VIEW on DOS: 05/26/24, XY CHEST XRAY 1 VIEW on DOS: 01/29/23 FINDINGS: Lines and Tubes: None Lungs: No focal consolidation. Pleura: No effusion. No pneumothorax. Cardiomediastinal contours: Unremarkable Bones: No acute osseous abnormality. IMPRESSION: No acute cardiopulmonary disease.
--- NOTE | 2024-08-21 05:32 | ECG ---
[facility] Test Date: 2024-08-21 Test Time: 03:30:00 Pat Name: HILARIA HART Department: ED Room: Gender: F Rn Assessment: LOULOU : 1965 Requested By: EMERGENCY EMERGENCY Order Number: [id number] Reading MD: Lloyd Ho Measurements Intervals [place] Rate: 81 P: 74 MT: 128 QRS: 77 QRSD: 87 T: 65 QT: 390 QTc: 453 Interpretive Statements Sinus rhythm Electronically Signed On 08-22-2024 22:37:20 PDT by Lloyd Ho Please click the below link to view image of tracing.
--- NOTE | 2024-08-21 05:32 | DVH ---
EXAM: CT Abdomen and Pelvis Without Intravenous Contrast CLINICAL INDICATION: ABDOMINAL PAIN TECHNIQUE: Axial computed tomography images of the abdomen and pelvis without intravenous contrast. This CT exam was performed using one or more of the following dose reduction techniques: automated exposure control, adjustment of the mA and/or kV according to patient size, and/or use of iterative r econstruction technique. CONTRAST: RADIATION DOSE: CTDIvol = 6.97 mGy, DLP = 331.67 mGy-cm COMPARISON: CT CT AB PEL WO CON-NO ORAL OR IV on DOS: 01/29/23 FINDINGS: ARTIFACTS: Beam hardening artifacts. Motion artifact. LUNG BASES: Unremarkable. No mass. No consolidation. ABDOMEN: LIVER: Unremarkable. GALLBLADDER AND BILE DUCTS: Unremarkable. No calcified stones. No ductal dilation. PANCREAS: Unremarkable. No ductal dilation. SPLEEN: Unremarkable. No splenomegaly. ADRENALS: Unremarkable. No mass. KIDNEYS AND URETERS: Prominent bilateral renal pelvis without obstruction. However, distal assessm ent is limited secondary to beam hardening artifacts from the hip replacement. STOMACH AND BOWEL: Fecal retention in the colon consistent with constipation. No obstruction. No mucosal thickening. PELVIS: APPENDIX: No findings to suggest acute appendicitis. BLADDER: Unremarkable. No stones. REPRODUCTIVE: Unremarkable as visualized. ABDOMEN and PELVIS: INTRAPERITONEAL SPACE: Unremarkable. No free air. No significant fluid collection. BONES/JOINTS: See above. SOFT TISSUES: Unremarkable. VASCULATURE: Scattered calcified atherosclerotic disease of aorta. No abdominal aortic aneurysm. LYMPH NODES: Unremarkable. No enlarged lymph nodes. OTHER FINDINGS: . . IMPRESSION: 1. Prominent bilateral renal pelvis without obstruction. However, distal assessment is limited seco ndary to beam hardening artifacts from the hip replacement. 2. Fecal retention in the colon consistent with constipation.
[2024-08-21 05:39] LABS: Alanine Aminotransferase 25 U/L (7-40); Alkaline Phosphatase 99 U/L (46-116); Anion Gap 6 (5-15); Aspartate Aminotransferase 16 U/L (13-40); BUN/Creatinine Ratio 8.9 (10.0-20.0); Calcium 10.2 mg/dL (8.7-10.4); Potassium 3.7 mmol/L (3.5-5.1); Sodium 140 mmol/L (136-145)
[2024-08-21] MEDS ORDERED: CIPR500T4 PO (05:39)
[2024-08-21] MEDS ORDERED: ACET500T58 PO (05:39)
[2024-08-21 05:40] LABS: Bilirubin, Total 0.3 mg/dL (0.2-1.0)
[2024-08-21 05:42] LABS: Albumin 5.2 g/dL (3.2-4.8); Blood Urea Nitrogen 8 mg/dL (9-23); Carbon Dioxide 19 mmol/L (20-31); Chloride 115 mmol/L (98-107); Glucose 109 mg/dL (74-106); Lipase 147 U/L (12-53); Total Protein 8.8 g/dL (5.7-8.2)
[2024-08-21 08:00] VITALS: BP 120/58; PULSE 58; RESP 16; TEMP 98.1; O2SAT 95
== END 2024-08-21 08:29 | disposition home or self-care (01) ==
LOC: EDBD 03:15 → ER 03:15
DX: K52.9 Noninfective gastroenteritis and colitis, unspecified (principal); N28.1 Cyst of kidney, acquired; J06.9 Acute upper respiratory infection, unspecified; B97.89 Other viral agents as the cause of diseases classified elsewhere; I10 Essential (primary) hypertension; E78.5 Hyperlipidemia, unspecified; Z86.73 Personal history of transient ischemic attack (TIA), and cerebral infarction without residual deficits; Z90.49 Acquired absence of other specified parts of digestive tract; Z79.02 Long term (current) use of antithrombotics/antiplatelets; Z79.899 Other long term (current) drug therapy; Z20.822 Contact with and (suspected) exposure to COVID-19
CPT/HCPCS: 36415; 71045; 74176; 80053; 81001; 83690; 84484; 85025; 87426; 87804; 93005; 96361; 96374; 96376; 99285; J2270; J7030; Q0162

== ENCOUNTER 2024-12-13 20:49 | Inpatient (IN) | payer MEDICAID ==
[~2024-12-13] VITALS: Ht 167.6 cm; Wt 44.9 kg
[2024-12-13] MEDS: SODIUM CHLORIDE 0.9% 2,000 ML IV ONE (02:00)
[~2024-12-13 20:49] MED LIST changes: +ACET500T58 PO; +CIPR500T4 PO
--- NOTE | 2024-12-13 21:29 | ED.PDOC ---
HPI (NEURO) HPI Comments This is a 59 year old female with a history of hypertension, dyslipidemia, CVA with residual right-sided deficit, SLE, seizure disorder and anxiety BIBA presenting to the ED with chief complaint of seizure and abdominal pain. EMS reports that the patient was witnessed by family at home to have had a seizure lasting approximately 1 minute with patient being post-ictal afterwards. EMS reports that the patient has been out of Keppra for the past 2 days. EMS states patient had nausea on route along with 2 episodes of vomiting. Patient notes that she has also been experiencing constant diffuse abdominal pain with associated nausea, vomiting, diarrhea, and dysuria for the past 2 days. Patient denies any chest pain, SOB, dizziness, fever, chills, hematemesis, or melena. Chief Complaint: Seizure Time Seen by MD: 21:26 Reviewed Notes: Nurses Notes, Computer Hardware Engineer Notes, Medications, Allergies Information Source: Patient, Emergency Med Personnel Mode of Arrival: EMS Severity: Moderate Timing: Days Duration: Since onset Prehospital treatment: None Seizure Quality: Tonic-clonic Seizure Location: Generalized Onset: At rest Circumstances: Spontaneous History of: Seizure Disorder Associated Signs and Symptoms: Nausea, Vomiting, Diarrhea Past Medical History PAST MEDICAL HISTORY: Anxiety, CVA, High Lipids, HTN, Seizures Past Medical History (Other): Lupus Surgical History: Appendectomy 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 Pertinent MACHINIST APPRENTICE History Family History Family History: Unknown Social History Smoker: Non-Smoker Alcohol: Denies ETOH Use Drugs: Marijuana Lives In: Home Constitutional: denies: chills, diaphoresis, fatigue, fever, malaise, sweats, weakness, others EENTM: denies: blurred vision, double vision, ear bleeding, ear discharge, ear drainage, ear pain, ear ringing, eye pain, eye redness, hearing loss, mouth pain, mouth swelling, nasal discharge, nose bleeding, nose congestion, nose pain, photophobia, tearing, throat pain, throat swelling, voice changes, others Respiratory: denies: cough, hemoptysis, orthopnea, SOB at rest, shortness of breath, SOB with excertion, stridor, wheezing, others Cardiovascular: denies: chest pain, dizzy spells, diaphoresis, Dyspnea on exertion, edema, irregular heart beat, left arm pain, lightheadedness, palpitations, PND, syncope, others Gastrointestinal: reports: abdominal pain, diarrhea, nausea, vomiting; denies: abdomen distended, blood streaked bowels, constipated, dysphagia, difficulty swallowing, hematemesis, melena, poor appetite, poor fluid intake, rectal bleed ing, rectal pain, others Genitourinary: reports: dysuria; denies: abnormal vagina bleeding, burning, dyspareunia, flank pain, frequency, hematuria, incontinence, pain, , vagina discharge, urgency, others Neurological: reports: seizure; denies: dizziness, fainting, headache, left sided numbness, left sided weakness, numbness, paresthesia, pre-existing deficit, right sided numbness, right sided weakness, speech problems, tingling, tremors, weakness, others Musculoskeletal: denies: back pain, gout, joint pain, joint swelling, muscle pain, muscle stiffness, neck pain, others Integumetry: denies: bruises, change in color, change in hair/nails, dryness, laceration, lesions, lumps, rash, wounds, others Allergic/Immunocompromised: denies: Difficulty Healing, Frequent Infections, Hives, Itching, others Hematologic/Lymphatic: denies: anemia, blood clots, easy bleeding, easy bruising, swollen glands, others Endocrine: denies: excessive hunger, excessive sweating, excessive thirst, excessive urination, flushing, intolerance to cold, intolerance to heat, unexplained weight gain, unexplained weight loss, others Psychiatric: denies: anxiety, bipolar disorder, depression, hopeless, panic disorder, schizophrenia, sleepless, suicidal, others All Other Systems: Reviewed and Negative Physical Exam General Appearance: Moderate Distress HEENT: Other (Moist mucous membranes. Pupils equal.) Neck: Full Range of Motion, Normal Inspection Respiratory: Lungs Clear, No Accessory Muscle Use, No Respiratory Distress, Normal Breath Sounds Cardiovascular: No Edema, No JVD, Regular Rate/Rhythm Breast Exam: Deferred Gastrointestinal: Diffuse, Soft, Tenderness Genitalia: Deferred Pelvic: Deferred Rectal: Deferred Extremities: Non-tender, No pedal edema, Other (Right upper extremity contracture) Neurologic: Alert (Oriented x4), Other (Anxious) Cerebellar Function: NOT DONE Reflexes: NOT DONE Skin: Dry, Normal Color, Warm Lymphatic: NOT DONE EKG EKG : Comments Sinus rhythm, rate 71, normal intervals, normal axis, possible old anteroseptal infarct, nonspecific T change. Was a procedure done? Was a procedure done?: No Differential Diagnosis (SZ) Seizure: Hypocalcemia, Hypoglycemia, Hyponatremia, Hypoxemia, Epilepsy-Break Through, Epilepsy-Status, Other (Gastroenteritis, gastritis, UTI, pancreatitis, biliary tract disease, colitis, diverticular disease, bowel obstruction, sepsis, among others) CVA: Electrolyte Imbalance X-Ray, Labs, Meds, VS Vital Signs Date Time Temp Pulse Resp B/P (MAP) Pulse Ox O2 Delivery O2 Flow Rate FiO2 12/13/24 23:14 82 18 164/95 12/13/24 21:04 71 12/13/24 20:57 97.4 82 16 174/94 (120) 100 97.4 Lab Test 12/14/24 01:00 12/14/24 00:45 12/13/24 21:34 Range/Units Urine Color Colorless Yellow Urine Clarity Clear Clear Urine pH 7.0 5.0-9.0 Urine Specific [place] 1.009 1.001-1.035 Urine Protein 1+ H Negative Urine Ketones Negative Negative Urine Blood Negative Negative /uL Urine Nitrite 2+ H Negative Urine Bilirubin Negative Negative Urine Urobilinogen Normal Negative mg/dL Urine Leukocyte Esterase 1+ Negative /uL Urine RBC 2 0 - 4 /hpf Urine Microscopic WBC 11 H 0-5 /HPF Urine Squamous Epithelial Cells None seen <5 /hpf Urine Bacteria Many H None Seen /hpf Urine Mucus Few None Seen Urine Glucose Normal Normal mg/dL Troponin I High Sensitivity 5 3 L </=34 ng/L White Blood Count 8.1 4.4-10.8 10^3/uL Red Blood Count 4.40 4.0-5.20 10^6/uL Hemoglobin 12.7 12.2-16.2 g/dL Hematocrit 38.1 36.0-46.0 % Mean Corpuscular Volume 86.8 80.0-100.0 fL Mean Corpuscular Hemoglobin 29.0 28.0-32.0 pg Mean Corpuscular Hemoglobin Concent 33.4 32.0-36.0 g/dL Red Cell Distribution Width 14.8 H 11.8-14.3 % Platelet Count 399 140-450 10^3/uL Mean Platelet Volume 8.7 6.9-10.8 fL Neutrophils (%) (Auto) 72.3 37.0-80.0 % Lymphocytes (%) (Auto) 24.7 10.0-50.0 % Monocytes (%) (Auto) 1.7 0.0-12.0 % Eosinophils (%) (Auto) 0.6 0.0-7.0 % Basophils (%) (Auto) 0.7 0.0-2.0 % Neutrophils # (Auto) 5.8 1.6-8.6 10 ^3/uL Lymphocytes # (Auto) 2.0 0.4-5.4 10 ^3/uL Monocytes # (Auto) 0.1 0-1.3 10 ^3/uL Eosinophils # (Auto) 0 0-0.8 10 ^3/uL Basophils # (Auto) 0.1 0-0.2 10 ^3/uL Nucleated Red Blood Cells 0.1 % Prothrombin Time 10.8 9.3-11.8 sec Prothrombin Time INR 1.02 0.9-1.15 Activated Partial Thromboplast Time 25.1 24.5-34.5 SEC Sodium Level 142 136-145 mmol/L Potassium Level 3.2 L 3.5-5.1 mmol/L Chloride Level 113 H 98-107 mmol/L Carbon Dioxide Level 22 20-31 mmol/L Anion Gap 7 5-15 Blood Urea Nitrogen 8 L 9-23 mg/dL Creatinine 0.97 0.550-1.02 mg/dL Glomerular Filtration Rate Calc 66 >90 mL/min BUN/Creatinine Ratio 8.2 L 10.0-20.0 Serum Glucose 165 H 74-106 mg/dL Lactic Acid Level 2.0 0.4-2.0 mmol/L Calcium Level 10.8 H 8.7-10.4 mg/dL Total Bilirubin 0.3 0.2-1.0 mg/dL Aspartate Amino Transferase (AST) 17 13-40 U/L Alanine Aminotransferase (ALT) 13 7-40 U/L Alkaline Phosphatase 119 H 46-116 U/L Total Protein 8.7 H 5.7-8.2 g/dL Albumin 4.9 H 3.2-4.8 g/dL Levetiracetam Level Pending Current Medications Medications (Trade) Dose Ordered Sig/Wilber Route Start Time Stop Time Status Last Admin Levetiracetam 100 ml @ 400 mls/hr ONCE ONCE IV 12/13/24 21:30 12/13/24 21:44 DC 12/14/24 02:05 Sodium Chloride 2,000 ml @ 1,000 mls/hr Q2H ONCE IV 12/13/24 21:30 12/13/24 23:29 DC 12/13/24 02:00 Morphine Sulfate 4 mg ONCE ONCE IV 12/13/24 21:30 12/13/24 21:31 DC 12/13/24 23:14 Ondansetron HCl (Zofran) 4 mg ONCE ONCE IV 12/13/24 21:30 12/13/24 21:31 DC 12/14/24 02:06 PROCEDURE(s): CXRP - CHEST PORTABLE REASON: ORDER NUMBER(s): [id number], ACCESSION NUMBER(s): [id number] CHEST RADIOGRAPH Indication: Technique: Single frontal view of the chest was obtained COMPARISON: XY CHEST XRAY 1 VIEW on DOS: 08/21/24, XY CHEST XRAY 1 VIEW on DOS: 05/26/24, XY CHEST XRAY 1 VIEW on DOS: 01/29/23 FINDINGS: Lines and Tubes: None Lungs: Clear Pleura: No effusion. No pneumothorax. Cardiomediastinal contours: Unremarkable Bones: Unremarkable IMPRESSION: 1. No acute disease. EDURE(s): ABPL - CT AB PEL WO CON-NO ORAL OR IV REASON: diffuse abd pain n/v/d ORDER NUMBER(s): [id number], ACCESSION NUMBER(s): [id number] Exam: CT CT AB PEL WO CON-NO ORAL OR IV History: diffuse abd pain n/v/d Comparison Study: CT CT AB PEL WO CON-NO ORAL OR IV on DOS: 08/21/24, CT CT AB PEL WO CON-NO ORAL OR IV on DOS: 01/29/23 TECHNIQUE: Multidetector CT of the abdomen and pelvis was performed from lung bases to pubic symphysis. Imaging was performed without IV contrast. Axial, coronal, and sagittal multiplanar reformats were obtained from the axial data set by the technologist. RADIATION DOSE: CTDI vol 5.72 mGy. DLP 311.97 mGy.cm Findings: Limited evaluation of the solid organs in the absence of IV contrast. Evaluation is degraded by motion and streak artifact. Liver: Unremarkable. Spleen: Unremarkable. Pancreas: Unremarkable. Gallbladder: Unremarkable. Adrenals: Unremarkable Kidneys: Bilateral renal cysts. No hydronephrosis. Pelvic Viscera: Evaluation is degraded by streak artifact from adjacent hip hardware. Vasculature: Moderate aortoiliac atherosclerosis. Retroperitoneum: Shotty retroperitoneal nodes. Bowel: No bowel obstruction. Musculoskeletal: Bilateral hip arthroplasties. Soft tissues: Unremarkable Lungs: The lung bases are clear. Impression: 1. Limited evaluation as above without acute abdominopelvic abnormality identified. 2. Incidental findings as detailed. X-Ray, Labs, Meds, VS Comment 59-year-old female with a history of seizures, hypertension, dyslipidemia, CVA with residual right-sided deficit, SLE and anxiety brought in by EMS status post witnessed seizure and complaining of abdominal pain, nausea, vomiting and dysuria Vitals remarkable for BP 174/94 Exam remarkable for diffuse abdominal tenderness to palpation Rhythm strip independently interpreted by me: Sinus rhythm, rate 71, no ectopy. Chest x-ray unremarkable CT abdomen and pelvis Impression: 1. Limited evaluation as above without acute abdominopelvic abnormality identified. 2. Incidental findings as detailed. CBC unremarkable, CMP remarkable for potassium 3.2, lipase normal, lactate normal, troponin negative x2 UA abnormal consistent with UTI Patient treated with the following in the ED: 2 L 0.9 normal saline IV bolus, cefepime 2 g IV, vancomycin pharmacy IV, morphine 4 mg IV, Zofran 4 mg IV, Keppra 1 g IV effervescent potassium 50 mEq p.o. On re-evaluation, patient states pain has improved. Vitals were stable. Plan is to admit the patient for IV antibiotics, pain and emesis control and possible neurology evaluation Time of 1ST Reevaluation: 22:25 Reevaluation 1ST: Unchanged Patient Education/Counseling: Diagnosis, Treatment Family Education/Counseling: No Family Present Departure 1 Departure Time of Disposition: 01:31 Impression: Primary Impression: Seizure Additional Impressions: Abdominal pain Nausea and vomiting Electrolyte imbalance UTI (urinary tract infection) Disposition: ADMITTED INPATIENT Admit to: [facility] Condition: Guarded Critical Care Note Critical Care Time?: Yes (35 min-critical care time only) Critical care comment: Critical care time including multiple bedside re-evaluations, review of lab and imaging studies, and discussion of the case with the admitting provider. Patient is high risk for neurologic and/or metabolic decompensation. Stability Stability form required: No Heart Score Heart Score: Heart Score Response (Comments) Value History N/A 0 EKG N/A 0 Age N/A 0 Risk Factors N/A 0 Troponin N/A 0 Total 0 I personally scribed for GAMA COSME MD ([email or web address]) on 12/13/24 at 21:29. Electronically submitted by Brian Lim ([email or web address]). GAMA COSME MD Dec 13, 2024 21:29
[2024-12-13 21:51] LABS: Hematocrit 38.1 % (36.0-46.0); Hemoglobin 12.7 g/dL (12.2-16.2); Mean Corpuscular Hemoglobin 29.0 pg (28.0-32.0); Mean Corpuscular Volume 86.8 fL (80.0-100.0); Nucleated Red Blood Cells % 0.1 %
--- NOTE | 2024-12-13 21:57 | ECG ---
[facility] Test Date: 2024-12-13 Test Time: 21:04:56 Pat Name: HILARIA HART Department: ED Room: 0238T Gender: [place] Operator: YARY : 1965 Requested By: EMERGENCY EMERGENCY Order Number: [id number] Reading MD: Lloyd Ho Measurements Intervals [place] Rate: 71 P: 35 CO: 126 QRS: 22 QRSD: 80 T: 80 QT: 404 QTc: 439 Interpretive Statements Sinus rhythm Anterior infarct, old Baseline wander in lead(s) V4 Electronically Signed On 12-17-2024 18:35:13 PDT by Lloyd Ho Please click the below link to view image of tracing.
[2024-12-13 22:07] LABS: Alanine Aminotransferase 13 U/L (7-40); Anion Gap 7 (5-15); BUN/Creatinine Ratio 8.2 (10.0-20.0); Carbon Dioxide 22 mmol/L (20-31); Sodium 142 mmol/L (136-145)
[2024-12-13 22:08] LABS: INR 1.02 (0.9-1.15); Partial Thromboplastin Time 25.1 SEC (24.5-34.5); Prothrombin Time 10.8 sec (9.3-11.8)
[2024-12-13 22:10] LABS: Albumin 4.9 g/dL (3.2-4.8); Alkaline Phosphatase 119 U/L (46-116); Bilirubin, Total 0.3 mg/dL (0.2-1.0); Blood Urea Nitrogen 8 mg/dL (9-23); Calcium 10.8 mg/dL (8.7-10.4); Chloride 113 mmol/L (98-107); Glucose 165 mg/dL (74-106); Potassium 3.2 mmol/L (3.5-5.1); Total Protein 8.7 g/dL (5.7-8.2)
[2024-12-13] MEDS: MORPHINE SULFATE 4 MG/ML SYR/VIAL IV ONE (23:14)
--- NOTE | 2024-12-14 01:17 | DVH ---
CHEST RADIOGRAPH Indication: sz Technique: Single frontal view of the chest was obtained COMPARISON: XY CHEST XRAY 1 VIEW on DOS: 08/21/24, XY CHEST XRAY 1 VIEW on DOS: 05/26/24, XY CHEST XRA Y 1 VIEW on DOS: 01/29/23 FINDINGS: Lines and Tubes: None Lungs: Clear Pleura: No effusion. No pneumothorax. Cardiomediastinal contours: Unremarkable Bones: Unremarkable IMPRESSION: 1. No acute disease.
--- NOTE | 2024-12-14 01:20 | DVH ---
Exam: CT CT AB PEL WO CON-NO ORAL OR IV History: diffuse abd pain n/v/d Comparison Study: CT CT AB PEL WO CON-NO ORAL OR IV on DOS: 08/21/24, CT CT AB PEL WO CON-NO ORAL OR I V on DOS: 01/29/23 TECHNIQUE: Multidetector CT of the abdomen and pelvis was performed from lung bases to pubic symphysi s. Imaging was performed without IV contrast. Axial, coronal, and sagittal multiplanar reformats were obtained from the axial data set by the technologist. RADIATION DOSE: CTDI vol 5.72 mGy. DLP 311.97 mGy.cm Findings: Limited evaluation of the solid organs in the absence of IV contrast. Evaluation is degraded by motio n and streak artifact. Liver: Unremarkable. Spleen: Unremarkable. Pancreas: Unremarkable. Gallbladder: Unremarkable. Adrenals: Unremarkable Kidneys: Bilateral renal cysts. No hydronephrosis. Pelvic Viscera: Evaluation is degraded by streak artifact from adjacent hip hardware. Vasculature: Moderate aortoiliac atherosclerosis. Retroperitoneum: Shotty retroperitoneal nodes. Bowel: No bowel obstruction. Musculoskeletal: Bilateral hip arthroplasties. Soft tissues: Unremarkable Lungs: The lung bases are clear. Impression: 1. Limited evaluation as above without acute abdominopelvic abnormality identified. 2. Incidental findings as detailed.
[2024-12-14 02:03] LABS: Urine Protein, UAD 1+ (Negative)
[2024-12-14] MEDS: levETIRAcetam 1000 mg/100ml 100 ML IV ONE (02:05)
[2024-12-14] MEDS: ONDANSETRON HCL 4 MG/2 ML VIAL IV ONE (02:06)
[2024-12-14] MEDS: VANCOMYCIN 1GM/200ML PM 200 ML IV ONE (03:28)
[2024-12-14] MEDS: HALOPERIDOL LACTATE 5 MG/ML INJ VIAL IM ONE (03:47)
[2024-12-14] MEDS: POTASSIUM EFFERVESENT TAB 25 MEQ PO ONE (04:00)
[2024-12-14] MEDS ORDERED: NITROGLYCERIN 0.4 MG SL TAB SL PRN (05:00)
[2024-12-14] MEDS ORDERED: ACETAMINOPHEN 325 MG TAB PO PRN (05:00)
[2024-12-14] MEDS ORDERED: MORPHINE SULFATE INJ 2 MG/ml SYRG IV PRN (05:00)
[2024-12-14] MEDS: CEFEPIME 1GM/ 50ML 50 ML IV SCH (05:07)
--- NOTE | 2024-12-14 05:15 | DVHHP2 ---
History of Present Illness Reason for Visit: Seizure disorder History of Present Illness The patient is a 59-year-old female with past medical history of CVA with right- sided residual deficit, anxiety, hyperlipidemia, seizures, lupus, and hypertension who presented to [facility] ED for evaluation of seizures activity. As reported by EMS, patient had witnessed seizure activity by family lasting a proximally 1 minutes with postictal afterwards. Apparently, patient has been out of Keppra for the past 2 days, experiencing associated abdominal pain, nausea, 2 episodes of vomiting, and diarrhea. Patient was seen and evaluated in the ED, laboratory data shows WBC 8.1, platelets 399, sodium 142, potassium 3.2, BUN eight, creatinine 0.97, glucose 165, calcium 10.8, troponin 8, blood pressure 164/95, heart rate 82, temperature 97.4 F, O2 saturation 99% room air. Patient was started on IV Keppra, please see medication orders section in the computer. On my assessment, patient denied chest pain, headache, no dizziness, no shortness of breaths, no nausea, no vomiting, no fever, no chills. Patient was admitted for further evaluation and medical management. Past Medical History Anxiety, CVA, High Lipids, HTN, Seizures, Lupus Past Surgical History Appendectomy Family History Reviewed, noncontributory to the management of this case. Past Social History The patient lives at home, denies smoking or alcohol use, uses marijuana., Review of Systems Constitutional: Yes: Weakness; No: Fever, Chills, Sweats, Malaise, Other Eyes: No: Pain, Vision change, Conjunctivae inflammation, Eyelid inflammation, Other, Redness ENT: No: Ear pain, Ear discharge, Nose pain, Nose discharge, Nose congestion, Mouth pain, Mouth swelling, Throat pain, Throat swelling, Other Respiratory: No: Cough, Dry, Shortness of breath, SOB with excertion, Wheezing, Hemoptysis, Pleuritic Pain, Sputum, Wheezing, Other Cardiovascular: No: Chest Pain, Palpitations, Orthopnea, Paroxysmal Noc. Dyspnea, Edema, Lt Headedness, Other Gastrointestinal: Nausea, Vomiting, Abdominal Pain; No: Diarrhea, Constipation, Melena, Hematochezia, Other Genitourinary: No Dysuria, No Frequency, No Incontinence, No Hematuria, No Retention, No Other Musculoskeletal: No: other, neck pain, shoulder pain, arm pain, back pain, hand pain, leg pain, foot pain Neurological: Seizures; No: Weakness, Numbness, Incoordination, Change in spee ch, Confusion, Other Allergies: Coded Allergies: NO KNOWN ALLERGIES (Unverified , 01/29/23) Medications Current Medications Medications Dose Ordered Sig/Wilber Route Start Time Stop Time Status Last Admin Dose Admin Cefepime HCl 50 ml @ 12.5 mls/hr Q8HR IV 12/13/24 22:00 Exam Vital Signs Vital Signs Date Time Temp Pulse Resp B/P (MAP) Pulse Ox O2 Delivery O2 Flow Rate FiO2 12/13/24 23:14 82 18 164/95 12/13/24 20:57 97.4 100 97.4 General Appearance: Alert, Oriented X3, Cooperative, No acute distress HEENT: Atraumatic, PERRLA, EOMI, Mucous membr. moist/pink Respiratory: Normal air movement Cardiovascular: Regular rate, Normal S1, Normal S2, No murmurs Abdominal: Normal bowel sounds, Soft, No tenderness, No hepatospenomegaly, No masses Extremities: No clubbing, No cyanosis, No edema, Normal pulses, No tenderness/swelling Skin: No rashes, No significant lesion Neuro: Normal speech, Normal tone, Sensation intact, Cranial nerves 3-12 NL, Reflexes 2+, Other (Generalized weakness) Psych/Mental Status: Mental status NL, Mood NL Labs/Xrays Labs Test 12/14/24 01:00 12/14/24 00:45 12/13/24 21:34 Range/Units Urine Color Colorless Yellow Urine Clarity Clear Clear Urine pH 7.0 5.0-9.0 Urine Specific [place] 1.009 1.001-1.035 Urine Protein 1+ H Negative Urine Ketones Negative Negative Urine Blood Negative Negative /uL Urine Nitrite 2+ H Negative Urine Bilirubin Negative Negative Urine Urobilinogen Normal Negative mg/dL Urine Leukocyte Esterase 1+ Negative /uL Urine RBC 2 0 - 4 /hpf Urine Microscopic WBC 11 H 0-5 /HPF Urine Squamous Epithelial Cells None seen <5 /hpf Urine Bacteria Many H None Seen /hpf Urine Mucus Few None Seen Urine Glucose Normal Normal mg/dL Troponin I High Sensitivity 5 </=34 ng/L White Blood Count 8.1 4.4-10.8 10^3/uL Red Blood Count 4.40 4.0-5.20 10^6/uL Hemoglobin 12.7 12.2-16.2 g/dL Hematocrit 38.1 36.0-46.0 % Mean Corpuscular Volume 86.8 80.0-100.0 fL Mean Corpuscular Hemoglobin 29.0 28.0-32.0 pg Mean Corpuscular Hemoglobin Concent 33.4 32.0-36.0 g/dL Red Cell Distribution Width 14.8 H 11.8-14.3 % Platelet Count 399 140-450 10^3/uL Mean Platelet Volume 8.7 6.9-10.8 fL Neutrophils (%) (Auto) 72.3 37.0-80.0 % Lymphocytes (%) (Auto) 24.7 10.0-50.0 % Monocytes (%) (Auto) 1.7 0.0-12.0 % Eosinophils (%) (Auto) 0.6 0.0-7.0 % Basophils (%) (Auto) 0.7 0.0-2.0 % Neutrophils # (Auto) 5.8 1.6-8.6 10 ^3/uL Lymphocytes # (Auto) 2.0 0.4-5.4 10 ^3/uL Monocytes # (Auto) 0.1 0-1.3 10 ^3/uL Eosinophils # (Auto) 0 0-0.8 10 ^3/uL Basophils # (Auto) 0.1 0-0.2 10 ^3/uL Nucleated Red Blood Cells 0.1 % Prothrombin Time 10.8 9.3-11.8 sec Prothrombin Time INR 1.02 0.9-1.15 Activated Partial Thromboplast Time 25.1 24.5-34.5 SEC Sodium Level 142 136-145 mmol/L Potassium Level 3.2 L 3.5-5.1 mmol/L Chloride Level 113 H 98-107 mmol/L Carbon Dioxide Level 22 20-31 mmol/L Anion Gap 7 5-15 Blood Urea Nitrogen 8 L 9-23 mg/dL Creatinine 0.97 0.550-1.02 mg/dL Glomerular Filtration Rate Calc 66 >90 mL/min BUN/Creatinine Ratio 8.2 L 10.0-20.0 Serum Glucose 165 H 74-106 mg/dL Lactic Acid Level 2.0 0.4-2.0 mmol/L Calcium Level 10.8 H 8.7-10.4 mg/dL Total Bilirubin 0.3 0.2-1.0 mg/dL Aspartate Amino Transferase (AST) 17 13-40 U/L Alanine Aminotransferase (ALT) 13 7-40 U/L Alkaline Phosphatase 119 H 46-116 U/L Total Protein 8.7 H 5.7-8.2 g/dL Albumin 4.9 H 3.2-4.8 g/dL PATIENT: HILARIA HART ACCT: [id number] UNIT: [id number] : 1965 LOC: ER ROOM / BED: / AGE / SEX: 59 / F ADM STATUS: REG ER SERVICE 23 ORDERING PHYSICIAN: GAMA COSME MD PROCEDURE(s): ABPL - CT AB PEL WO CON-NO ORAL OR IV REASON: diffuse abd pain n/v/d ORDER NUMBER(s): [id number], ACCESSION NUMBER(s): [id number] Exam: CT CT AB PEL WO CON-NO ORAL OR IV History: diffuse abd pain n/v/d Comparison Study: CT CT AB PEL WO CON-NO ORAL OR IV on DOS: 08/21/24, CT CT AB PEL WO CON-NO ORAL OR IV on DOS: 01/29/23 TECHNIQUE: Multidetector CT of the abdomen and pelvis was performed from lung bases to pubic symphysis. Imaging was performed without IV contrast. Axial, coronal, and sagittal multiplanar reformats were obtained from the axial data set by the technologist. RADIATION DOSE: CTDI vol 5.72 mGy. DLP 311.97 mGy.cm Findings: Limited evaluation of the solid organs in the absence of IV contrast. Evaluation is degraded by motion and streak artifact. Liver: Unremarkable. Spleen: Unremarkable. Pancreas: Unremarkable. Gallbladder: Unremarkable. Adrenals: Unremarkable Kidneys: Bilateral renal cysts. No hydronephrosis. Pelvic Viscera: Evaluation is degraded by streak artifact from adjacent hip hardware. Vasculature: Moderate aortoiliac atherosclerosis. Retroperitoneum: Shotty retroperitoneal nodes. Bowel: No bowel obstruction. Musculoskeletal: Bilateral hip arthroplasties. Soft tissues: Unremarkable Lungs: The lung bases are clear. Impression: 1. Limited evaluation as above without acute abdominopelvic abnormality identified. 2. Incidental findings as detailed. ORDERING PHYSICIAN: GAMA COSME MD PROCEDURE(s): CXRP - CHEST PORTABLE REASON: sz ORDER NUMBER(s): [id number], ACCESSION NUMBER(s): [id number] CHEST RADIOGRAPH Indication: socorro Technique: Single frontal view of the chest was obtained COMPARISON: XY CHEST XRAY 1 VIEW on DOS: 08/21/24, XY CHEST XRAY 1 VIEW on DOS: 05/26/24, XY CHEST XRAY 1 VIEW on DOS: 01/29/23 FINDINGS: Lines and Tubes: None Lungs: Clear Pleura: No effusion. No pneumothorax. Cardiomediastinal contours: Unremarkable Bones: Unremarkable IMPRESSION: 1. No acute disease. SEPSIS Sepsis Screen Date sepsis recognized/suspect: Dec 13, 2024 Time Sepsis recognized/suspect: 2056 Recent Procedure: No On Antibiotic Therapy: No Respiratory Rate >20: No Heart Rate >90: No Temp<36 C (96.8 F) or >38.3 C: No SBP <90 or MAP <65 mmHG: No New Acute Mental Status Change: No Is the patient on CPAP, BIPAP,: No Physician Orders Levetiracetam (Keppra) (12/13/24 21:17) Ct Ab Pel Wo Con-No Oral Or Iv (12/13/24 21:24) Insert/Manage Urinary Catheter QSHIFT (12/13/24 21:24) Chest Portable (12/13/24 21:24) Accucheck (12/13/24 21:24) Blood Culture (12/13/24 21:24) Cefepime 1gm/ 50ml (Maxipime 1gm/50ml) (12/13/24 22:00) Notify Md If Map <65 Or Bp<90 (12/13/24 21:24) If Map<65 Start Vasopressor (12/13/24 21:24) Sepsis Reassesment After Fluid (12/13/24 22:24) Complete Blood Count (12/14/24 04:48) Comprehensive Metabolic Panel (12/14/24 04:48) Hemoglobin A1c (12/14/24 04:48) Levetiracetam Ivpb Keppra (12/14/24 10:00) Admit (12/14/24 04:48) Allergies (12/14/24 04:48) Code Status (12/14/24 04:48) Sodium Chloride Lock (Saline Lock Ns) (12/14/24 06:00) Oxygen Per Hour (12/14/24 04:48) Hydrocodone-Acet 5/325mg Tab ([place] 5/32 (12/14/24 05:00) Ondansetron Hcl (Zofran) (12/14/24 05:00) Docusate Sodium Capsule (Colace Capsule) (12/14/24 05:00) Fall Risk Precautions In Place QSHIFT (12/14/24 04:48) Complete Blood Count (12/15/24 04:00) Comprehensive Metabolic Panel (12/15/24 04:00) Cardiac Diet-2gna,Lofat,Lochol (12/14/24 Breakfast) Condition: Serious (12/14/24 04:48) Acetaminophen Tablet (Tylenol Tablet) (12/14/24 05:00) Maintain Bed Rest (12/14/24 04:48) Sequential Compression Device (12/14/24 ) Nitroglycerin Sublingual (Ntrostat Subli (12/14/24 05:00) Morphine Sulfate Injection (12/14/24 05:00) Stat Ekg For Chest Pain (12/14/24 04:48) Notify Md Of Changes From Base (12/14/24 04:48) Recording Engineer For 24 Hours (12/14/24 04:48) Emergency Dysrhythmia Protocol (12/14/24 04:48) Rhythm Strips Once Every Shift (12/14/24 04:48) Oxygen By Nasal Cannula (12/14/24 04:48) Vital Signs Date Time Temp Pulse Resp B/P (MAP) Pulse Ox O2 Delivery O2 Flow Rate FiO2 12/13/24 23:14 82 18 164/95 12/13/24 21:04 71 12/13/24 20:57 97.4 82 16 174/94 (120) 100 97.4 Laboratory Tests Test 12/13/24 21:34 Lactic Acid Level 2.0 mmol/L (0.4-2.0) White Blood Count 8.1 10^3/uL (4.4-10.8) Medications Medications Dose Ordered Sig/Wilber Route Start Time Stop Time Status Last Admin Dose Admin Haloperidol Lactate 2.5 mg ONCE ONCE IM 12/14/24 03:45 12/14/24 03:46 DC 12/14/24 03:47 2.5 MG Levetiracetam 100 ml @ 400 mls/hr ONCE ONCE IV 12/13/24 21:30 12/13/24 21:44 DC 12/14/24 02:05 400 MLS/HR Morphine Sulfate 4 mg ONCE ONCE IV 12/13/24 21:30 12/13/24 21:31 DC 12/13/24 23:14 4 MG Ondansetron HCl 4 mg ONCE ONCE IV 12/13/24 21:30 12/13/24 21:31 DC 12/14/24 02:06 4 MG Potassium Bicarbonate 50 meq ONCE ONCE PO 12/14/24 01:30 12/14/24 01:35 DC 12/14/24 04:00 50 MEQ Sodium Chloride 2,000 ml @ 1,000 mls/hr Q2H ONCE IV 12/13/24 21:30 12/13/24 23:29 DC 12/13/24 02:00 1,000 MLS/HR Vancomycin HCl 200 ml @ 200 mls/hr ONCE ONCE IV 12/13/24 21:30 12/13/24 22:29 DC 12/14/24 03:28 200 MLS/HR Assessment/Plan Assessment/Plan Seizure disorder Abdominal pain Nausea and vomiting Electrolyte imbalance UTI (urinary tract infection) Plan 1. Admit to telemetry unit 2. Breathing treatment 3. Pain control management 4. IV antibiotic management 5. Management of fluids and electrolytes 6. Consultation for hospitalist 7. Diagnostic test head CT 8. DVT prophylaxis-on SCDs 9. Repeat labs CBC, CMP in a.m. 10. Home medication reviewed and reconciled 11. Continue with current medical management 12. Treatment plan discussed with patient and RN. Patient verbalized understanding. Plan discussed with: Patient, Other (RN) My Orders Orders - CARLYN URBINA DNP Procedure Category Date Status Time Complete Blood Count LAB 12/14/24 Verified 04:48 Comprehensive LAB 12/14/24 Verified Metabolic Panel 04:48 Hemoglobin A1c LAB 12/14/24 Verified 04:48 Levetiracetam Ivpb PHA 12/14/24 Verified Keppra 10:00 Admit ADMIT 12/14/24 Verified 04:48 Allergies DAVID 12/14/24 Verified 04:48 Code Status CODE 12/14/24 Verified 04:48 Sodium Chloride Lock PHA 12/14/24 Verified (Saline Lock Ns) 06:00 Oxygen Per Hour RT 12/14/24 Verified 04:48 Hydrocodone-Acet [facility] 12/14/24 Verified 5/325mg Tab ([place] 05:00 Ondansetron Hcl [facility] 12/14/24 Verified (Zofran) 05:00 Docusate Sodium [facility] 12/14/24 Verified Capsule (Colace 05:00 Fall Risk Precautions [facility] 12/14/[address] 04:48 Complete Blood Count LAB 12/15/24 Verified 04:00 Comprehensive LAB 12/15/24 Verified Metabolic Panel 04:00 Cardiac DIET 12/14/24 Verified Diet-2gna,Lofat,Lochol Breakfast Condition: Serious [facility] 12/14/24 Verified 04:48 Acetaminophen Tablet [facility] 12/14/24 Verified (Tylenol Tablet) 05:00 Maintain Bed Rest [facility] 12/14/24 Verified 04:48 Sequential [facility] 12/14/24 Verified Compression Device Nitroglycerin [facility] 12/14/24 Verified Sublingual (Ntrostat 05:00 Morphine Sulfate [facility] 12/14/24 Verified Injection 05:00 Stat Ekg For Chest [facility] 12/14/24 Verified Pain 04:48 Notify Md Of Changes [facility] 12/14/24 Verified From Base 04:48 Recording Engineer For [facility] 12/14/24 Verified 24 Hours 04:48 Emergency Dysrhythmia [facility] 12/14/24 Verified Protocol 04:48 Rhythm Strips Once [facility] 12/14/24 Verified Every Shift 04:48 Oxygen By Nasal RT 12/14/24 Verified Cannula 04:48 Problem List: (1) Seizure disorder (2) Abdominal pain (3) Nausea and vomiting (4) Electrolyte imbalance (5) UTI (urinary tract infection) Date of Service: Dec 14, 2024 Billing Provider: CARLYN URBINA DNP Common Visit Codes: [id number] INP/OBS CARE (HIGH) CARLYN URBINA DNP Dec 14, 2024 05:15
[2024-12-14] MEDS: HYDROcodone-ACET 5/325MG TAB PO PRN (05:48)
[2024-12-14] MEDS: SODIUM CHLOR 0.9% PF (SALINE LOCK) 10ML VIAL/SYR IV SCH (06:00)
[2024-12-14 08:00] VITALS: PULSE 135; RESP 20; O2SAT 97
[2024-12-14 08:30] VITALS: PULSE 125; RESP 20; O2SAT 97
[2024-12-14] MEDS: ONDANSETRON HCL 4 MG/2 ML VIAL IV PRN (09:04)
[2024-12-14] MEDS: levETIRAcetam 500 mg/100ml 100 ML IV SCH (09:04)
[2024-12-14] MEDS: MORPHINE SULFATE INJ 2 MG/ml SYRG IV PRN (11:36)
[2024-12-14] MEDS: SODIUM CHLORIDE 0.9% 1,000 ML IV SCH (11:37)
[2024-12-14] MEDS: GABAPENTIN 300 MG CAP PO SCH (15:00)
[2024-12-14] MEDS ORDERED: METOPROLOL TARTRATE 1MG/1ML-5ML VIAL IV PRN (15:15)
--- NOTE | 2024-12-14 16:10 | DVHPN2 ---
Subjective Patient admitted overnight. Seen and evaluated and discussed with the nurse. Patient knows that she is in the hospital but confused. She refuses head CT as ordered. Patient admitted for seizure disorder. Changes from previous H/P or p: No Changes Eyes: No Pain, No Vision change, No Conjunctivae inflammation, No Eyelid inflammation, No Other, No Redness ENT: No Ear pain, No Ear discharge, No Nose pain, No Nose discharge, No Nose congestion, No Mouth pain, No Mouth swelling, No Throat pain, No Throat swelling, No Other Cardiovascular: No Chest Pain, No Palpitations, No Orthopnea, No Paroxysmal Noc. Dyspnea, No Edema, No Lt Headedness, No Other Respiratory: No Cough, No Dry, No Shortness of breath, No SOB with excertion, No Wheezing, No Hemoptysis, No Pleuritic Pain, No Sputum, No Other Gastrointestinal: Nausea, Vomiting, Abdominal Pain; No Diarrhea, No Constipation, No Melena, No Hematochezia, No Other Genitourinary: No Dysuria, No Frequency, No Incontinence, No Hematuria, No Retention, No Other Musculoskeletal: No other, No neck pain, No shoulder pain, No arm pain, No back pain, No hand pain, No leg pain, No foot pain Objective Vitals Vital Signs Date Time Temp Pulse Resp B/P (MAP) Pulse Ox O2 Delivery O2 Flow Rate FiO2 12/14/24 14:33 116 20 160/112 12/14/24 10:00 97 12/14/24 08:30 Room Air* 0 21 12/14/24 08:30 97.9 97.9 Intake/Output Intake and Output 12/14/24 07:00 Intake Total 2312.5 ml Output Total 1700 ml Balance 612.5 ml Intake IV Total 2312.5 ml Output Urine Total 1700 ml Exam Alert awake oriented to place and person. Poor historian. HEENT neck supple no JVD pupils equal round react to light. Heart sinus tachycardia S1 plus S2 without murmurs. Lungs fair air movement without rales wheezes. Abdomen soft nontender positive bowel sounds. Extremities no edema positive pulses. Neurologically no focal deficits or weaknesses noted. Medications Current Medications Medications Dose Ordered Sig/Wilber Route Start Time Stop Time Status Last Admin Dose Admin Cefepime HCl 50 ml @ 12.5 mls/hr Q8HR IV 12/13/24 22:00 12/14/24 15:00 12.5 MLS/HR Levetiracetam 100 ml @ 400 mls/hr BID IV 12/14/24 10:00 12/14/24 09:04 400 MLS/HR Sodium Chloride 10 ml Q8HR IV 12/14/24 06:00 12/14/24 14:08 10 ML Acetaminophen/ Hydrocodone Bitart 1 tab Q4HP PRN PO 12/14/24 05:00 12/14/24 05:48 1 TAB Ondansetron HCl 4 mg Q4HP PRN IV 12/14/24 05:00 12/14/24 14:07 4 MG Docusate Sodium 100 mg BIDPRN PRN PO 12/14/24 05:00 Acetaminophen 650 mg Q6HP PRN PO 12/14/24 05:00 Nitroglycerin 0.4 mg Q5MINP PRN SL 12/14/24 05:00 Morphine Sulfate 2 mg Q30M PRN IV 12/14/24 05:00 Sodium Chloride 1,000 ml @ 100 mls/hr Q10H IV 12/14/24 11:30 12/14/24 11:37 100 MLS/HR Morphine Sulfate 2 mg Q3HPRN PRN IV 12/14/24 11:30 12/14/24 14:33 2 MG Enoxaparin Sodium 40 mg DAILY SC 12/15/24 10:00 Gabapentin 300 mg TID PO 12/14/24 14:00 12/14/24 15:00 300 MG Metoprolol Tartrate 2.5 mg Q6HR PRN IV 12/14/24 15:15 Lisinopril 10 mg BID PO 12/14/24 22:00 Clonidine HCl 0.1 mg TID PO 12/14/24 22:00 Laboratory Results Laboratory Tests 12/13/24 21:34 Chemistry Test 12/13/24 21:34 Albumin 4.9 g/dL (3.2-4.8) H Calcium Level 10.8 mg/dL (8.7-10.4) H Total Protein 8.7 g/dL (5.7-8.2) H Coagulation Test 12/13/24 21:34 Prothrombin Time 10.8 sec (9.3-11.8) Prothrombin Time INR 1.02 (0.9-1.15) Activated Partial Thromboplast Time 25.1 SEC (24.5-34.5) LFT Test 12/13/24 21:34 Alanine Aminotransferase (ALT) 13 U/L (7-40) Alkaline Phosphatase 119 U/L (46-116) H Aspartate Amino Transferase (AST) 17 U/L (13-40) Total Bilirubin 0.3 mg/dL (0.2-1.0) Urinalysis Test 12/14/24 01:00 Urine Color Colorless (Yellow) Urine Clarity Clear (Clear) Urine pH 7.0 (5.0-9.0) Urine Specific [place] 1.009 (1.001-1.035) Urine Protein 1+ (Negative) H Urine Ketones Negative (Negative) Urine Blood Negative /uL (Negative) Urine Nitrite 2+ (Negative) H Urine Bilirubin Negative (Negative) Urine Urobilinogen Normal mg/dL (Negative) Urine Leukocyte Esterase 1+ /uL (Negative) Urine RBC 2 /hpf (0 - 4) Urine Microscopic WBC 11 /HPF (0-5) H Urine Squamous Epithelial Cells None seen /hpf (<5) Urine Bacteria Many /hpf (None Seen) H Urine Mucus Few (None Seen) Urine Glucose Normal mg/dL (Normal) Assessment/Plan Assessment/Plan We will continue IV fluids. Continue empiric IV antibiotics. I will control her blood pressure and tachycardia with IV Lopressor. Start her on blood pressure medications given blood pressure is elevated. Otherwise follow the labs. Replace electrolytes as needed. Check ammonia levels. Check lactic last levels. Otherwise further clinical management per clinical course. Discussed with the nurse and patient regarding care plan. Plan discussed with: Patient, Other My Orders Orders - TERA COTA MD Procedure Category Date Status Time Sodium Chloride 0.9% PHA 12/14/24 In Process 11:30 Morphine Sulfate PHA 12/14/24 In Process Injection 11:30 Enoxaparin Sodium PHA 12/15/24 In Process (Lovenox) 10:00 Drug Screen LAB 12/14/24 Logged 11:27 Gabapentin Capsule PHA 12/14/24 In Process (Neurontin Capsule) 14:00 Pt Request For Service PT 12/14/24 Logged 11:27 Metoprolol Inj PHA 12/14/24 In Process (Lopressor) 15:15 Lisinopril Tablet PHA 12/14/24 In Process (Zestril Tablet) 22:00 Clonidine Hcl Tablet PHA 12/14/24 In Process (Catapres Tablet) 22:00 Ammonia LAB 12/14/24 Logged 15:06 Problem List: (1) Seizure disorder (2) UTI (urinary tract infection) Date of Service: Dec 14, 2024 Billing Provider: TERA COTA MD Common Visit Codes: [id number] INP/OBS CARE(MOD) TERA COTA MD Dec 14, 2024 16:10
[2024-12-14 16:22] LABS: Hematocrit 47.4 % (36.0-46.0); Hemoglobin 15.2 g/dL (12.2-16.2); Mean Corpuscular Hemoglobin 29.1 pg (28.0-32.0); Mean Corpuscular Volume 90.9 fL (80.0-100.0); Nucleated Red Blood Cells % 0.1 %
[2024-12-14 17:04] LABS: Albumin 4.3 g/dL (3.2-4.8); Anion Gap 8 (5-15); BUN/Creatinine Ratio 9.4 (10.0-20.0); Bilirubin, Total 0.4 mg/dL (0.2-1.0); Calcium 9.0 mg/dL (8.7-10.4); Potassium 3.5 mmol/L (3.5-5.1); Sodium 141 mmol/L (136-145); Total Protein 8.0 g/dL (5.7-8.2)
[2024-12-14 17:13] LABS: Alanine Aminotransferase 9 U/L (7-40); Alkaline Phosphatase 117 U/L (46-116); Blood Urea Nitrogen 6 mg/dL (9-23); Carbon Dioxide 16 mmol/L (20-31); Chloride 117 mmol/L (98-107); Glucose 123 mg/dL (74-106)
[2024-12-14] MEDS ORDERED: LISINOPRIL 20 MG TAB PO SCH (22:00)
[2024-12-14] MEDS: LISINOPRIL 20 MG TAB PO SCH (22:10)
[2024-12-14 22:56] VITALS: BP 119/84; PULSE 80; RESP 19; TEMP 97.8; O2SAT 99
[2024-12-14 23:00] VITALS: PULSE 81
[2024-12-15] VITALS (8 sets, daily range): BP systolic 110–125; BP diastolic 64–84; PULSE 46–107; RESP 18–20; TEMP 97.7–98.7; O2SAT 99–100
[2024-12-15 08:21] LABS: Albumin 4.1 g/dL (3.2-4.8); Alkaline Phosphatase 92 U/L (46-116); Anion Gap 7 (5-15); BUN/Creatinine Ratio 12.2 (10.0-20.0); Calcium 9.3 mg/dL (8.7-10.4); Carbon Dioxide 23 mmol/L (20-31); Glucose 84 mg/dL (74-106); Hematocrit 36.8 % (36.0-46.0); Hemoglobin 12.1 g/dL (12.2-16.2); Mean Corpuscular Hemoglobin 28.8 pg (28.0-32.0); Mean Corpuscular Volume 87.1 fL (80.0-100.0); Nucleated Red Blood Cells % 0.3 %; Potassium 3.6 mmol/L (3.5-5.1); Sodium 144 mmol/L (136-145); Total Protein 7.2 g/dL (5.7-8.2)
[2024-12-15 08:22] LABS: Bilirubin, Total 0.5 mg/dL (0.2-1.0)
[2024-12-15 08:31] LABS: Alanine Aminotransferase < 9 U/L (7-40); Blood Urea Nitrogen 9 mg/dL (9-23); Chloride 114 mmol/L (98-107)
[2024-12-15] MEDS: ENOXAPARIN SOD 40 MG/0.4 ML SYRINGE SC SCH (09:59)
--- NOTE | 2024-12-15 13:20 | DVHPN2 ---
Subjective She is more alert and awake and appropriate today. No seizures overnight. Complains of loose bowel movements. Changes from previous H/P or p: No Changes Eyes: No Pain, No Vision change, No Conjunctivae inflammation, No Eyelid inflammation, No Other, No Redness ENT: No Ear pain, No Ear discharge, No Nose pain, No Nose discharge, No Nose congestion, No Mouth pain, No Mouth swelling, No Throat pain, No Throat swelling, No Other Cardiovascular: No Chest Pain, No Palpitations, No Orthopnea, No Paroxysmal Noc. Dyspnea, No Edema, No Lt Headedness, No Other Respiratory: No Cough, No Dry, No Shortness of breath, No SOB with excertion, No Wheezing, No Hemoptysis, No Pleuritic Pain, No Sputum, No Other Gastrointestinal: Nausea, Vomiting, Abdominal Pain; No Diarrhea, No Constipation, No Melena, No Hematochezia, No Other Genitourinary: No Dysuria, No Frequency, No Incontinence, No Hematuria, No Retention, No Other Musculoskeletal: No other, No neck pain, No shoulder pain, No arm pain, No back pain, No hand pain, No leg pain, No foot pain Objective Vitals Vital Signs Date Time Temp Pulse Resp B/P (MAP) Pulse Ox O2 Delivery O2 Flow Rate FiO2 12/15/24 12:36 98.4 56 20 115/64 (81) 100 98.4 12/14/24 23:00 Room Air* 0 21 Intake/Output Intake and Output 12/15/24 07:00 Intake Total 727.5 ml Output Total 400 ml Balance 327.5 ml Intake Oral 240 ml IV Total 487.5 ml Output Urine Total 400 ml # Bowel Movements 1 Exam Alert awake oriented to place and person. Poor historian. HEENT neck supple no JVD pupils equal round react to light. Heart sinus tachycardia S1 plus S2 without murmurs. Lungs fair air movement without rales wheezes. Abdomen soft nontender positive bowel sounds. Extremities no edema positive pulses. Neurologically no focal deficits or weaknesses noted. Medications Current Medications Medications Dose Ordered Sig/Wilber Route Start Time Stop Time Status Last Admin Dose Admin Cefepime HCl 50 ml @ 12.5 mls/hr Q8HR IV 12/13/24 22:00 12/15/24 05:00 12.5 MLS/HR Levetiracetam 100 ml @ 400 mls/hr BID IV 12/14/24 10:00 12/15/24 09:58 400 MLS/HR Sodium Chloride 10 ml Q8HR IV 12/14/24 06:00 12/15/24 05:01 10 ML Acetaminophen/ Hydrocodone Bitart 1 tab Q4HP PRN PO 12/14/24 05:00 12/14/24 17:40 1 TAB Ondansetron HCl 4 mg Q4HP PRN IV 12/14/24 05:00 12/14/24 19:04 4 MG Docusate Sodium 100 mg BIDPRN PRN PO 12/14/24 05:00 Acetaminophen 650 mg Q6HP PRN PO 12/14/24 05:00 Nitroglycerin 0.4 mg Q5MINP PRN SL 12/14/24 05:00 Sodium Chloride 1,000 ml @ 100 mls/hr Q10H IV 12/14/24 11:30 12/14/24 21:35 100 MLS/HR Morphine Sulfate 2 mg Q3HPRN PRN IV 12/14/24 11:30 12/15/24 10:00 2 MG Enoxaparin Sodium 40 mg DAILY SC 12/15/24 10:00 12/15/24 09:59 40 MG Gabapentin 300 mg TID PO 12/14/24 14:00 12/15/24 05:00 300 MG Metoprolol Tartrate 2.5 mg Q6HR PRN IV 12/14/24 15:15 Clonidine HCl 0.1 mg TID PO 12/14/24 22:00 12/15/24 05:00 0.1 MG Lisinopril 20 mg BID PO 12/14/24 22:00 12/15/24 09:59 20 MG Famotidine 20 mg DAILY PO 12/16/24 10:00 Hydralazine HCl 25 mg Q8HR PO 12/15/24 12:15 12/15/24 12:36 25 MG Laboratory Results Laboratory Tests 12/15/24 07:30 Chemistry Test 12/15/24 07:30 Albumin 4.1 g/dL (3.2-4.8) Calcium Level 9.3 mg/dL (8.7-10.4) Total Protein 7.2 g/dL (5.7-8.2) LFT Test 12/15/24 07:30 Alanine Aminotransferase (ALT) < 9 U/L (7-40) Alkaline Phosphatase 92 U/L (46-116) Aspartate Amino Transferase (AST) 15 U/L (13-40) Total Bilirubin 0.5 mg/dL (0.2-1.0) HgA1c, TSH Test 12/14/24 16:03 Hemoglobin A1c 5.0 % A1C (<5.7) Urinalysis Test 12/14/24 01:00 Urine Color Colorless (Yellow) Urine Clarity Clear (Clear) Urine pH 7.0 (5.0-9.0) Urine Specific [place] 1.009 (1.001-1.035) Urine Protein 1+ (Negative) H Urine Ketones Negative (Negative) Urine Blood Negative /uL (Negative) Urine Nitrite 2+ (Negative) H Urine Bilirubin Negative (Negative) Urine Urobilinogen Normal mg/dL (Negative) Urine Leukocyte Esterase 1+ /uL (Negative) Urine RBC 2 /hpf (0 - 4) Urine Microscopic WBC 11 /HPF (0-5) H Urine Squamous Epithelial Cells None seen /hpf (<5) Urine Bacteria Many /hpf (None Seen) H Urine Mucus Few (None Seen) Urine Glucose Normal mg/dL (Normal) Microbiology Microbiology Date/Time Source Procedure Growth Status 12/13/24 21:34 Blood Blood Culture - Preliminary NO GROWTH AFTER 24 HOURS OF INCUBATION. Resulted Assessment/Plan Assessment/Plan We will continue IV fluids. Continue empiric IV antibiotics. Blood pressure has normalized. Continue current blood pressure medications. Send stool studies given diarrhea. Continue current antibiotics. Further clinical management per clinical course and pending evaluations and studies we will try to reorder CT of the head without contrast today given she refused yesterday. Discussed with the patient and nurse regarding care plan. Plan discussed with: Patient, Other My Orders Orders - TERA COTA MD Procedure Category Date Status Time Metoprolol Inj PHA 12/14/24 In Process (Lopressor) 15:15 Clonidine Hcl Tablet PHA 12/14/24 In Process (Catapres Tablet) 22:00 Blood Culture RUFINA 12/14/24 In Process 16:11 Lisinopril Tablet PHA 12/14/24 In Process (Zestril Tablet) 22:00 Famotidine Tablet PHA 12/16/24 In Process (Pepcid Tablet) 10:00 Clostridium Difficile RUFINA 12/15/24 In Process Toxin 12:17 Stool Occult Blood LAB 12/15/24 In Process 11:45 Stool Bacterial RUFINA 12/15/24 In Process Culture 12:17 Hydralazine Hcl PHA 12/15/24 In Process Tablet (Apresoline 12:15 Stool Wbc LAB 12/15/24 In Process 12:14 Basic Metabolic Panel LAB 12/16/24 Verified 04:00 Complete Blood Count LAB 12/16/24 Verified 04:00 Lactic Acid W/ Reflex LAB 12/16/24 Verified Order 04:00 Problem List: (1) Electrolyte imbalance (2) Nausea and vomiting (3) Abdominal pain (4) Seizure disorder (5) UTI (urinary tract infection) Date of Service: Dec 15, 2024 Billing Provider: TERA COTA MD Common Visit Codes: [id number] INP/OBS CARE(MOD) TERA COTA MD Dec 15, 2024 13:20
[2024-12-16] VITALS (7 sets, daily range): BP systolic 111–123; BP diastolic 63–72; PULSE 52–63; RESP 16–20; TEMP 97.9–99.1; O2SAT 93–100
[2024-12-16 06:52] LABS: Hematocrit 32.4 % (36.0-46.0); Hemoglobin 10.8 g/dL (12.2-16.2); Mean Corpuscular Hemoglobin 29.5 pg (28.0-32.0); Mean Corpuscular Volume 89.0 fL (80.0-100.0); Nucleated Red Blood Cells % 0.0 %
[2024-12-16 06:56] LABS: Potassium 4.0 mmol/L (3.5-5.1); Sodium 140 mmol/L (136-145)
[2024-12-16 06:57] LABS: Anion Gap 6 (5-15)
[2024-12-16 06:58] LABS: Calcium 9.5 mg/dL (8.7-10.4)
[2024-12-16 06:59] LABS: Carbon Dioxide 20 mmol/L (20-31); Chloride 114 mmol/L (98-107)
[2024-12-16 07:02] LABS: Glucose 78 mg/dL (74-106)
[2024-12-16 07:14] LABS: Blood Urea Nitrogen 7 mg/dL (9-23)
[2024-12-16 07:27] LABS: BUN/Creatinine Ratio 11.7 (10.0-20.0)
[2024-12-16] MEDS: FAMOTIDINE 20 MG TAB PO SCH (10:19)
[2024-12-16] MEDS: SODIUM CHLORIDE 0.9% 1,000 ML IV SCH (11:15)
--- NOTE | 2024-12-16 13:38 | DVHPN2 ---
Subjective She refused once again head CT yesterday. Patient mentation appears to be improving. No further seizures. Her urine culture came back growing ESBL E coli. Changes from previous H/P or p: No Changes Eyes: No Pain, No Vision change, No Conjunctivae inflammation, No Eyelid inflammation, No Other, No Redness ENT: No Ear pain, No Ear discharge, No Nose pain, No Nose discharge, No Nose congestion, No Mouth pain, No Mouth swelling, No Throat pain, No Throat swelling, No Other Cardiovascular: No Chest Pain, No Palpitations, No Orthopnea, No Paroxysmal Noc. Dyspnea, No Edema, No Lt Headedness, No Other Respiratory: No Cough, No Dry, No Shortness of breath, No SOB with excertion, No Wheezing, No Hemoptysis, No Pleuritic Pain, No Sputum, No Other Gastrointestinal: Nausea, Vomiting, Abdominal Pain; No Diarrhea, No Constipation, No Melena, No Hematochezia, No Other Genitourinary: No Dysuria, No Frequency, No Incontinence, No Hematuria, No Retention, No Other Musculoskeletal: No other, No neck pain, No shoulder pain, No arm pain, No back pain, No hand pain, No leg pain, No foot pain Objective Vitals Vital Signs Date Time Temp Pulse Resp B/P (MAP) Pulse Ox O2 Delivery O2 Flow Rate FiO2 12/16/24 12:36 98.7 53 20 118/68 (85) 99 98.7 12/16/24 08:00 Room Air* 0 21 Intake/Output Intake and Output 12/16/24 07:00 Intake Total 1450 ml Output Total 725 ml Balance 725 ml Intake Oral 650 ml IV Total 800 ml Output Urine Total 725 ml # Bowel Movements 3 Exam Alert awake oriented to place and person. Poor historian. HEENT neck supple no JVD pupils equal round react to light. Heart sinus tachycardia S1 plus S2 without murmurs. Lungs fair air movement without rales wheezes. Abdomen soft nontender positive bowel sounds. Extremities no edema positive pulses. Neurologically no focal deficits or weaknesses noted. Medications Current Medications Medications Dose Ordered Sig/Wilber Route Start Time Stop Time Status Last Admin Dose Admin Levetiracetam 100 ml @ 400 mls/hr BID IV 12/14/24 10:00 12/16/24 10:19 400 MLS/HR Sodium Chloride 10 ml Q8HR IV 12/14/24 06:00 12/16/24 05:34 10 ML Acetaminophen/ Hydrocodone Bitart 1 tab Q4HP PRN PO 12/14/24 05:00 12/16/24 13:24 1 TAB Ondansetron HCl 4 mg Q4HP PRN IV 12/14/24 05:00 12/14/24 19:04 4 MG Docusate Sodium 100 mg BIDPRN PRN PO 12/14/24 05:00 Acetaminophen 650 mg Q6HP PRN PO 12/14/24 05:00 Nitroglycerin 0.4 mg Q5MINP PRN SL 12/14/24 05:00 Morphine Sulfate 2 mg Q3HPRN PRN IV 12/14/24 11:30 12/16/24 07:56 2 MG Enoxaparin Sodium 40 mg DAILY SC 12/15/24 10:00 12/16/24 10:19 40 MG Gabapentin 300 mg TID PO 12/14/24 14:00 12/16/24 05:35 300 MG Metoprolol Tartrate 2.5 mg Q6HR PRN IV 12/14/24 15:15 Clonidine HCl 0.1 mg TID PO 12/14/24 22:00 12/15/24 14:41 0.1 MG Lisinopril 20 mg BID PO 12/14/24 22:00 12/16/24 10:19 20 MG Famotidine 20 mg DAILY PO 12/16/24 10:00 12/16/24 10:19 20 MG Hydralazine HCl 25 mg Q8HR PO 12/15/24 12:15 12/16/24 05:35 25 MG Sodium Chloride 1,000 ml @ 70 mls/hr [id number] IV 12/16/24 11:15 UNV Ertapenem 1 gm/ Sodium Chloride 50 ml @ 100 mls/hr DAILY IV 12/16/24 11:15 12/30/24 11:14 UNV Laboratory Results Laboratory Tests 12/16/24 05:40 Chemistry Test 12/16/24 05:40 Calcium Level 9.5 mg/dL (8.7-10.4) Urinalysis Test 12/14/24 01:00 Urine Color Colorless (Yellow) Urine Clarity Clear (Clear) Urine pH 7.0 (5.0-9.0) Urine Specific [place] 1.009 (1.001-1.035) Urine Protein 1+ (Negative) H Urine Ketones Negative (Negative) Urine Blood Negative /uL (Negative) Urine Nitrite 2+ (Negative) H Urine Bilirubin Negative (Negative) Urine Urobilinogen Normal mg/dL (Negative) Urine Leukocyte Esterase 1+ /uL (Negative) Urine RBC 2 /hpf (0 - 4) Urine Microscopic WBC 11 /HPF (0-5) H Urine Squamous Epithelial Cells None seen /hpf (<5) Urine Bacteria Many /hpf (None Seen) H Urine Mucus Few (None Seen) Urine Glucose Normal mg/dL (Normal) Microbiology Microbiology Date/Time Source Procedure Growth Status 12/15/24 11:49 Stool Stool Culture - Preliminary Resulted 12/15/24 11:49 Stool Shiga Toxin I & II Pending Resulted 12/14/24 20:40 Blood Blood Culture - Preliminary NO GROWTH AFTER 24 HOURS OF INCUBATION. Resulted 12/14/24 01:00 Voided Urine Urine Culture - Final Escherichia coli - ESBL Complete Assessment/Plan Assessment/Plan Taper off and discontinue IV fluids given her oral intake is adequate now. We will change the antibiotics started upon him for ESBL UTI. We will have a midline placed. Consider Infectious Disease consultation and treatment per UTI for seven days. Otherwise continue rest of supportive care and treatment as she is on including seizure medications for now. Encouraged activity and ambulation. Discussed with the patient's nurse regarding care plan. Plan discussed with: Patient, Other My Orders Orders - TERA COTA MD Procedure Category Date Status Time Electrocardigram EKG 12/15/24 Logged 16:12 Pt Request For Service PT 12/15/24 Logged 18:09 Sodium Chloride 0.9% PHA 12/16/24 Logged 11:15 * Infectious Vasquez- Dr. CONS 12/16/24 Transmitted Miley Lynne 11:12 Insert Midline ORDERS 12/16/24 Transmitted 11:12 Ertapenem Sod Inj PHA 12/16/24 Logged (Invanz) 11:15 Problem List: (1) Infection due to ESBL-producing Escherichia coli (2) UTI (urinary tract infection) (3) Electrolyte imbalance (4) Abdominal pain (5) Seizure disorder Date of Service: Dec 16, 2024 Billing Provider: TERA COTA MD Common Visit Codes: [id number] INP/OBS CARE(MOD) TERA COTA MD Dec 16, 2024 13:38
[2024-12-16] MEDS: ERTAPENEM SOD INJ 1 GM in SODIUM CHL 0.9% 50 ML IV SCH (14:14)
[2024-12-17] VITALS (10 sets, daily range): BP systolic 121–150; BP diastolic 69–82; PULSE 48–62; RESP 16–18; TEMP 97.7–99.3; O2SAT 99–100
[2024-12-17] MEDS: HYDROcodone-ACET 5/325MG TAB PO ONE (00:58)
--- NOTE | 2024-12-17 07:35 | ECG ---
[facility] Test Date: 2024-12-15 Test Time: 16:08:48 Pat Name: HILARIA HART Department: Room: 0238T A Gender: F Disability Counselor: mann : 1965 Requested By: TERA COTA Order Number: [id number] Reading MD: Lloyd Ho Measurements Intervals [place] Rate: 49 P: 51 NH: 130 QRS: -45 QRSD: 81 T: 63 QT: 470 QTc: 425 Interpretive Statements Sinus bradycardia Ventricular premature complex Left axis deviation Anterior infarct, old Baseline wander in lead(s) V4 Electronically Signed On 12-17-2024 13:25:05 PDT by Lloyd Ho Please click the below link to view image of tracing.
[2024-12-17] MEDS: LORazepam 2MG/ML-1ML VIAL ONE (11:48)
[2024-12-17] MEDS ORDERED: LORazepam 2MG/ML-1ML VIAL IV PRN ×2 (12:00→23:00)
--- NOTE | 2024-12-17 12:46 | DVHINCON2 ---
GI Consult Consult Note GI consult note Date of Consultation: 12/17/2024 Chief Complaint: Anemia Referring Physician: Dr. Banks H&P: 59-year-old female with past medical history of CVA with right-sided deficits, anxiety, hyperlipidemia, seizures, lupus and hypertension presented to ER with seizure activity. Patient also continues to have seizure activity this morning. Complains of periumbilical abdominal pain, ongoing for many years. History of GERD. Patient has nausea and vomiting, denies hematemesis Last bowel movement last night, unsure of any melena or red blood in stool Denies history of anemia in past Patient has history of marijuana use No EGD or colonoscopy in past Past Medical History: Anxiety, CVA, High Lipids, HTN, Seizures, Lupus Past Surgical History: Appendectomy Social History: denies smoking or alcohol use, uses marijuana., Family History: Noncontributory Review of Systems: Constitutional: no fever, chill, weight loss HEENT: no eye pain, no hearing loss, no oral lesion, no scleral icterus Heart: no chest pain, no chest pressure Lung: no cough, no dyspnea with exertion Abdomen: see HPI Neurological:+ seizure Physical exam: General: NAD, AAOX3 Chest: lung morales clear to auscultation Heart: RRR, no murmur Abdomen: non-distended, + periumbilical tenderness to palpation, +BS Labs: Chemistry Test 12/16/24 05:40 Calcium Level 9.5 mg/dL (8.7-10.4) Urinalysis Test 12/14/24 01:00 Urine Color Colorless (Yellow) Urine Clarity Clear (Clear) Urine pH 7.0 (5.0-9.0) Urine Specific [place] 1.009 (1.001-1.035) Urine Protein 1+ (Negative) H Urine Ketones Negative (Negative) Urine Blood Negative /uL (Negative) Urine Nitrite 2+ (Negative) H Urine Bilirubin Negative (Negative) Urine Urobilinogen Normal mg/dL (Negative) Urine Leukocyte Esterase 1+ /uL (Negative) Urine RBC 2 /hpf (0 - 4) Urine Microscopic WBC 11 /HPF (0-5) H Urine Squamous Epithelial Cells None seen /hpf (<5) Urine Bacteria Many /hpf (None Seen) H Urine Mucus Few (None Seen) Urine Glucose Normal mg/dL (Normal) Microbiology Microbiology Date/Time Source Procedure Growth Status 12/15/24 11:49 Stool Stool Culture - Preliminary Resulted 12/15/24 11:49 Stool Shiga Toxin I & II Pending Resulted 12/14/24 20:40 Blood Blood Culture - Preliminary NO GROWTH AFTER 24 HOURS OF INCUBATION. Resulted 12/14/24 01:00 Voided Urine Urine Culture - Final Escherichia coli - ESBL Complete Imaging: CT abdomen pelvis Impression: 1. Limited evaluation as above without acute abdominopelvic abnormality identified. 2. Incidental findings as detailed. Assessment: Abdominal pain Anemia UTI, ESBL producing E coli Seizure disorder Plan: Discussed with Dr. Aragon Monitor labs Protonix and Carafate Patient is not medically stable for GI procedures at this time due to ongoing seizure activity If needed GI procedures to be planned when patient is stable or on an outpatient basis Discussed plan with patient, family at bedside and RN Thank you for this consult Date of Service: Dec 17, 2024 Billing Provider: GALINA SORIANO Common Visit Codes: CONSULT ONLY Consultation Codes: [id number] CONSULT <60MIN GALINA SORIANO Dec 17, 2024 12:46
[2024-12-17] MEDS: LORazepam 2MG/ML-1ML VIAL IV ONE (13:05)
--- NOTE | 2024-12-17 13:18 | DVHPN2 ---
Subjective Patient's family is at bedside. Patient is seen morning and crying episode. Family thinks she is having seizure. Patient refused head CT x2 however today she has agreed to have one done. Changes from previous H/P or p: No Changes Eyes: No Pain, No Vision change, No Conjunctivae inflammation, No Eyelid inflammation, No Other, No Redness ENT: No Ear pain, No Ear discharge, No Nose pain, No Nose discharge, No Nose congestion, No Mouth pain, No Mouth swelling, No Throat pain, No Throat swelling, No Other Cardiovascular: No Chest Pain, No Palpitations, No Orthopnea, No Paroxysmal Noc. Dyspnea, No Edema, No Lt Headedness, No Other Respiratory: No Cough, No Dry, No Shortness of breath, No SOB with excertion, No Wheezing, No Hemoptysis, No Pleuritic Pain, No Sputum, No Other Gastrointestinal: Nausea, Vomiting, Abdominal Pain; No Diarrhea, No Constipation, No Melena, No Hematochezia, No Other Genitourinary: No Dysuria, No Frequency, No Incontinence, No Hematuria, No Retention, No Other Musculoskeletal: No other, No neck pain, No shoulder pain, No arm pain, No back pain, No hand pain, No leg pain, No foot pain Objective Vitals Vital Signs Date Time Temp Pulse Resp B/P (MAP) Pulse Ox O2 Delivery O2 Flow Rate FiO2 12/17/24 09:00 97.7 54 16 122/70 (87) 100 97.7 12/17/24 08:00 Room Air* 0 21 Intake/Output Intake and Output 12/17/24 07:00 Intake Total 670 ml Output Total 700 ml Balance -30 ml Intake Oral 520 ml IV Total 150 ml Output Urine Total 700 ml # Bowel Movements 1 Exam Patient is moaning and tearful. Family at bedside. Pupils equal round reactive to light. Neck supple no JVD. Heart S1 plus S2 regular rate and rhythm. Lungs poor inspiratory effort but no wheezing. Abdomen soft positive bowel sounds. Extremities no edema Medications Current Medications Medications Dose Ordered Sig/Wilber Route Start Time Stop Time Status Last Admin Dose Admin Levetiracetam 100 ml @ 400 mls/hr BID IV 12/14/24 10:00 12/17/24 08:59 400 MLS/HR Sodium Chloride 10 ml Q8HR IV 12/14/24 06:00 12/17/24 05:51 10 ML Acetaminophen/ Hydrocodone Bitart 1 tab Q4HP PRN PO 12/14/24 05:00 12/17/24 08:59 1 TAB Ondansetron HCl 4 mg Q4HP PRN IV 12/14/24 05:00 12/14/24 19:04 4 MG Docusate Sodium 100 mg BIDPRN PRN PO 12/14/24 05:00 Acetaminophen 650 mg Q6HP PRN PO 12/14/24 05:00 Nitroglycerin 0.4 mg Q5MINP PRN SL 12/14/24 05:00 Morphine Sulfate 2 mg Q3HPRN PRN IV 12/14/24 11:30 12/16/24 20:52 2 MG Gabapentin 300 mg TID PO 12/14/24 14:00 12/17/24 05:55 300 MG Metoprolol Tartrate 2.5 mg Q6HR PRN IV 12/14/24 15:15 Clonidine HCl 0.1 mg TID PO 12/14/24 22:00 12/16/24 14:09 0.1 MG Lisinopril 20 mg BID PO 12/14/24 22:00 12/17/24 09:00 20 MG Famotidine 20 mg DAILY PO 12/16/24 10:00 12/17/24 08:59 20 MG Hydralazine HCl 25 mg Q8HR PO 12/15/24 12:15 12/17/24 05:55 25 MG Sodium Chloride 1,000 ml @ 70 mls/hr [id number] IV 12/16/24 11:15 12/17/24 00:47 70 MLS/HR Ertapenem 1 gm/ Sodium Chloride 50 ml @ 100 mls/hr DAILY IV 12/16/24 11:15 12/30/24 11:14 12/17/24 10:38 100 MLS/HR Lorazepam 1 mg Q5MINP PRN IV 12/17/24 12:00 Laboratory Results Laboratory Tests 12/16/24 05:40 Urinalysis Test 12/14/24 01:00 Urine Color Colorless (Yellow) Urine Clarity Clear (Clear) Urine pH 7.0 (5.0-9.0) Urine Specific [place] 1.009 (1.001-1.035) Urine Protein 1+ (Negative) H Urine Ketones Negative (Negative) Urine Blood Negative /uL (Negative) Urine Nitrite 2+ (Negative) H Urine Bilirubin Negative (Negative) Urine Urobilinogen Normal mg/dL (Negative) Urine Leukocyte Esterase 1+ /uL (Negative) Urine RBC 2 /hpf (0 - 4) Urine Microscopic WBC 11 /HPF (0-5) H Urine Squamous Epithelial Cells None seen /hpf (<5) Urine Bacteria Many /hpf (None Seen) H Urine Mucus Few (None Seen) Urine Glucose Normal mg/dL (Normal) Microbiology Microbiology Date/Time Source Procedure Growth Status 12/15/24 11:49 Stool Stool Culture - Preliminary Resulted 12/15/24 11:49 Stool Shiga Toxin I & II Pending Resulted 12/14/24 20:40 Blood Blood Culture - Preliminary NO GROWTH AFTER 48 HOURS OF INCUBATION. Resulted 12/14/24 01:00 Voided Urine Urine Culture - Final Escherichia coli - ESBL Complete Assessment/Plan Assessment/Plan Appears atypical seizures. However she is on Keppra IV twice a day for history of seizures. We will continue this. We will proceed with a head CT today and neurological consultation. Otherwise continue current antibiotics for ESBL E coli. Encouraged activity. Social Service consultation for safety evaluation at home and walker. Otherwise further clinical management per clinical course. Plan discussed with: Patient, Other My Orders Orders - TERA COTA MD Procedure Category Date Status Time * Gi Dvh Legal Process Specialist CONS 12/17/24 Transmitted 10:31 Iron Panel LAB 12/17/24 Logged 10:31 Ferritin LAB 12/17/24 Logged 10:31 Basic Metabolic Panel LAB 12/18/24 Verified 04:00 Complete Blood Count LAB 12/18/24 Verified 04:00 * Neurology Consult CONS 12/17/24 Transmitted 11:53 Lorazepam 2mg/Ml Inj PHA 12/17/24 In Process (Ativan Inj) 12:[address] 12/17/24 Logged 12:39 Problem List: (1) Infection due to ESBL-producing Escherichia coli (2) Seizure disorder (3) Abdominal pain (4) Nausea and vomiting (5) Seizure Date of Service: Dec 17, 2024 Billing Provider: TERA COTA MD Common Visit Codes: [id number] INP/OBS CARE(MOD) TERA COTA MD Dec 17, 2024 13:18
--- NOTE | 2024-12-17 13:43 | DVH ---
CT HEAD WITHOUT CONTRAST Indication: aloc EXAM DATE: 12/17/2024 01:08 PM COMPARISON: None TECHNIQUE: CT of the head without intravenous contrast. RADIATION DOSE: CTDIvol: 53 mGy, DLP: 945 mGy*cm FINDINGS: There is no intracranial hemorrhage. There is no extra-axial fluid, mass, mass effect or midline shif t. The ventricles are midline and normal in size. Basilar cisterns are patent. Left frontoparietal en cephalomalacia. Right frontal encephalomalacia. Old left basal ganglia / reynolds radiata infarction. Mastoids well pneumatized. Mild ethmoid sinus disease.. Imaged portion of the orbits are unremarkable . IMPRESSION: No intracranial hemorrhage or mass effect. Bilateral cerebral encephalomalacia most pronounced in the left frontal and parietal lobes.
[2024-12-17 13:44] LABS: Iron 35.0 ug/dL (50-170); Total Iron Binding Capacity 203.0 ug/dL (250-425)
--- NOTE | 2024-12-17 22:21 | DVHINCON2 ---
Date of service: Dec 17, [address] Castellano Reason for Consultation Seizure History of Present Illness Mr. Lantigua is a 59 years old not sure right-handed female with a history of hypertension, dyslipidemia, stroke with residual right-sided hemiplegia, anxiety, lupus, she was admitted to the [facility] on 12/13/2024 with a chief complaint of seizure and abdominal pain. At that time, he is awake, oriented to person, place, but he is a poor historian. The history is obtained from her sister but who is not a good historian either, I have reviewed chart as well In the age of 20s, the patient developed seizure disorder in that she had episodic event where she was nonresponsive, shaking all over body, she was treated and the seizure stopped in the age of 40s, but not sure if her seizure medication was discontinued In 2016, the patient developed acute right erik plegia, and the patient was said to have stroke problem. Coincidentally after the stroke, the patient has episodic event where she has spells of shortness breath, sometimes she is nonresponsive during the event, and this happens at least once monthly, she sees Dr. Nico Lindsey, and the patient was said to have seizure, and she has been on Keppra since the stroke, her sister relates the patient is on Keppra 1.5 tablets b.i.d.. According to reconciled external medication, she is on Keppra 1000 mg three tablets daily. Her sister is not aware of her secondary stroke prevention, according to the reconciled external medication list, she is on Lipitor 40 mg daily, she might take Eliquis 5 mg b.i.d. Urinalysis, 12/14/2024: WBC: 11, urine leukocyte esterase: 1+, urine nitrate: 2+ WBC/HB/PLT/MCV, 12/16/24: 7/10.8/219/89.0 CMP, 12/08/2024: Unremarkable HGB A1c, 12/14 25:5 Occul stool blood, 12/15/2024: Positive CT head, 12/17/2024: No intracranial hemorrhage or mass effect. Bilateral cerebral encephalomalacia most pronounced in the left frontal and parietal lobes Past Medical History Hypertension, dyslipidemia, stroke with residual right hemiplegia in 2016, anxiety, seizure, lupus Past Surgical History Appendectomy Family History: Diabetes mellitus G8 MOTHER FH: CHF (congestive heart failure) G8 MOTHER FH: breast cancer G8 MOTHER Family History Diabetes, kidney failure, heart disease, breast cancer Social History She is a heavy tobacco smoke, but no history of drug or alcohol abuse Allergies: Coded Allergies: NO KNOWN ALLERGIES (Unverified , 01/29/23) Home Meds Active Scripts Acetaminophen (Acetaminophen) 500 Mg Tab, 500 MG PO Q4HPRN, #30 TAB 0 Refills Prov:TANESHA MCGARRY 08/21/24 Ciprofloxacin Hcl (Ciprofloxacin Hcl) 500 Mg Tab, 1 TAB PO BID for 7 Days, #14 TAB 0 Refills Prov:TANESHA MCGARRY 08/21/24 Metronidazole (Flagyl) 500 Mg Tab, 1 TAB PO TID, #30 TAB Prov:ZULLY ESTEVES [employer] 05/30/24 Cephalexin Monohydrate (Cephalexin) 500 Mg Cap, 1 CAP PO QID, #40 CAP Prov:ZULLY ESTEVES NP 05/30/24 Amlodipine Besylate (Amlodipine Besylate) 10 Mg Tab, 1 TAB PO DAILY, #30 TAB 5 Refills Prov:ZULLY ESTEVES [employer] 05/30/24 Hydrocodone-Acetaminophen (Hydrocodone Bitartrate/AC 10-325 mg) 1 Tab Tab, 1 TAB PO Q6HPRN PRN for 7 Days, #28 TAB Prov:ZULLY ESTEVES [employer] 05/30/24 Reported Medications Morphine Sulfate (Morphine Sulfate) 15 Mg Tab, 15 MG PO, TAB 05/27/24 Clopidogrel Bisulfate (CLOPIDOGREL) 75 Mg Tab, 75 MG PO DAILY for 30 Days, MG 05/27/24 Gabapentin (Gabapentin) 300 Mg Cap, 300 MG PO for 30 Days, MG 05/27/24 Trazodone Hcl (Trazodone Hcl) 100 Mg Tab, 100 MG PO, MG 05/27/24 Levetiracetam (Keppra) 500 Mg Tab, 3 TAB PO BID, #180 TAB 3 Refills 05/27/24 Current Medications Current Medications Medications (Trade) Dose Ordered Sig/Wilber Route PRN Reason Start Time Stop Time Status Last Admin Lorazepam (Ativan Inj) 1 mg Q5MINP PRN IV SEIZURES 12/17/24 12:00 Review of Systems As above, the other systems are negative Vital Signs Vital Signs Date Time Temp Pulse Resp B/P (MAP) Pulse Ox O2 Delivery O2 Flow Rate FiO2 12/17/24 21:17 133/73 12/17/24 21:16 60 18 12/17/24 21:00 98.6 100 98.6 12/17/24 19:51 Room Air* 0 21 Physical Exam GENERAL EXAM: General: the patient is well developed and nourished. No acute distress. HEENT: Normocephalic, neck is supple, no carotid bruits. No mass. RESPIRATORY: Normal respiratory effort with symmetrical lung expansion. Lungs clear to auscultation. CARDIOVASCULAR: Regular rate and rhythm with no murmurs. S1, S2. ABDOMEN: Soft, nontender, normal bowel sound NEUROLOGICAL: MENTAL STATUS: Awake and alert. Oriented to person, place, SPEECH, LANGUAGE, HIGHER CORTICAL FUNCTION: no aphasia or dysathria. CRANIAL NERVES: #2: Intact visual morales to confrontation. The optic discs were sharp. #3,4,6: Pupils are equal, round and reactive. EOMs full and conjugate. #5: Facial sensation intact in all three divisions bilaterally. Mandibular s trength intact. #7: Facial muscles symmetrical and strength intact. #8: Hearing grossly normal to voice. #9,10: Uvula and soft palate rise in the midline. Swallow and voice are normal. #11: Trapezius and sternomastoid strength intact bilaterally. #12: Tongue midline. No fasciculations or atrophy. SENSATION: Sensation to touch and pinprick is in the right arm than leg MOTOR: Increased muscle tone in the right arm than leg. Muscle strength of the major groups in the left extremities is 5/5. Muscle strength of the major groups in the right extremities is 0/5. There is spasticity/contraction in the right upper extremity REFLEXES: Deep tendon reflexes are symmetrical. No pathological reflexes. CEREBELLAR/COORDINATION: Deferred GAIT/STATION: deferred. Labs/Diagnostic Data Labs Test 12/17/24 13:01 12/16/24 05:40 12/15/24 11:49 12/15/24 07:30 Range/Units Iron Level 35 L 50-170 ug/dL Total Iron Binding Capacity 203 L 250-425 ug/dL Percent Iron Saturation 17.2 15-50 % Ferritin 101.1 10-291 ng/mL White Blood Count 7.0 4.4-10.8 10^3/uL Red Blood Count 3.64 L 4.0-5.20 10^6/uL Hemoglobin 10.8 L 12.2-16.2 g/dL Hematocrit 32.4 #L 36.0-46.0 % Mean Corpuscular Volume 89.0 80.0-100.0 fL Mean Corpuscular Hemoglobin 29.5 28.0-32.0 pg Mean Corpuscular Hemoglobin Concent 33.2 32.0-36.0 g/dL Red Cell Distribution Width 15.3 H 11.8-14.3 % Platelet Count 219 140-450 10^3/uL Mean Platelet Volume 8.9 6.9-10.8 fL Neutrophils (%) (Auto) 68.0 37.0-80.0 % Lymphocytes (%) (Auto) 26.9 10.0-50.0 % Monocytes (%) (Auto) 4.0 0.0-12.0 % Eosinophils (%) (Auto) 0.4 0.0-7.0 % Basophils (%) (Auto) 0.7 0.0-2.0 % Neutrophils # (Auto) 4.7 1.6-8.6 10 ^3/uL Lymphocytes # (Auto) 1.9 0.4-5.4 10 ^3/uL Monocytes # (Auto) 0.3 0-1.3 10 ^3/uL Eosinophils # (Auto) 0 0-0.8 10 ^3/uL Basophils # (Auto) 0 0-0.2 10 ^3/uL Nucleated Red Blood Cells 0.0 % Sodium Level 140 136-145 mmol/L Potassium Level 4.0 3.5-5.1 mmol/L Chloride Level 114 H 98-107 mmol/L Carbon Dioxide Level 20 20-31 mmol/L Anion Gap 6 5-15 Blood Urea Nitrogen 7 L 9-23 mg/dL Creatinine 0.60 0.550-1.02 mg/dL Glomerular Filtration Rate Calc 102 >90 mL/min BUN/Creatinine Ratio 11.7 10.0-20.0 Serum Glucose 78 74-106 mg/dL Lactic Acid Level 1.1 0.4-2.0 mmol/L Calcium Level 9.5 8.7-10.4 mg/dL Stool Occult Blood Positive Negative Stool Occult Blood Sample #3 Negative Stool for White Cells None seen Total Bilirubin 0.5 0.2-1.0 mg/dL Aspartate Amino Transferase (AST) 15 13-40 U/L Alanine Aminotransferase (ALT) < 9 7-40 U/L Alkaline Phosphatase 92 46-116 U/L Total Protein 7.2 5.7-8.2 g/dL Albumin 4.1 3.2-4.8 g/dL Test 12/14/24 16:03 12/14/24 06:26 12/14/24 01:00 12/14/24 00:45 Range/Units Hemoglobin A1c 5.0 <5.7 % A1C Ammonia 24 11-32 umol/L POC Glucose 141 H 70-106 mg/dl Urine Color Colorless Yellow Urine Clarity Clear Clear Urine pH 7.0 5.0-9.0 Urine Specific [place] 1.009 1.001-1.035 Urine Protein 1+ H Negative Urine Ketones Negative Negative Urine Blood Negative Negative /uL Urine Nitrite 2+ H Negative Urine Bilirubin Negative Negative Urine Urobilinogen Normal Negative mg/dL Urine Leukocyte Esterase 1+ Negative /uL Urine RBC 2 0 - 4 /hpf Urine Microscopic WBC 11 H 0-5 /HPF Urine Squamous Epithelial Cells None seen <5 /hpf Urine Bacteria Many H None Seen /hpf Urine Mucus Few None Seen Urine Glucose Normal Normal mg/dL Troponin I High Sensitivity 5 </=34 ng/L Test 12/13/24 21:34 Range/Units Prothrombin Time 10.8 9.3-11.8 sec Prothrombin Time INR 1.02 0.9-1.15 Activated Partial Thromboplast Time 25.1 24.5-34.5 SEC Microbiology Date/Time Source Procedure Growth Status 12/15/24 11:49 Stool Stool Culture - Final Complete 12/15/24 11:49 Stool Shiga Toxin I & II - Final Complete 12/14/24 20:40 Blood Blood Culture - Preliminary NO GROWTH AFTER 72 HOURS OF INCUBATION. Resulted 12/14/24 01:00 Voided Urine Urine Culture - Final Escherichia coli - ESBL Complete Assessment Episodic event, ? Partial complex seizure History of grand mal seizure per age of 20s to age of 40s Chronic stroke with residual right hemiplegia Cognitive dysfunction ? Vascular dementia ? Metabolic encephalopathy UTI GI bleeding Plan/Recommendation Monitoring Supportive treatment Telemetry IV antibiotics Keppra 1500 mg b.i.d. Ativan for seizure breakthrough Lipitor 40 mg daily GI on case Consider antiplatelet/anticoagulation treatment later This medical document was created using an electronic medical record system with [employer] dictation system. Although this document has been carefully reviewed, there may still be some phonetic and typographical errors. These areas are purely typographical due to imperfections of the software programs, and do not reflect any compromise in the patient's medical care. Plan discussed with: NANO Salmon MD Dec 17, 2024 22:21
[2024-12-18 01:00] VITALS: BP 101/67; PULSE 51; RESP 17; TEMP 98.7; O2SAT 100
[2024-12-18 05:00] VITALS: BP 123/66; PULSE 57; RESP 17; TEMP 98.3; O2SAT 100
[2024-12-18 06:00] LABS: Hematocrit 31.4 % (36.0-46.0); Hemoglobin 10.3 g/dL (12.2-16.2); Mean Corpuscular Hemoglobin 29.4 pg (28.0-32.0); Mean Corpuscular Volume 89.3 fL (80.0-100.0); Nucleated Red Blood Cells % 0.1 %
[2024-12-18 06:28] LABS: Sodium 143 mmol/L (136-145)
[2024-12-18 06:29] LABS: Anion Gap 8 (5-15); Calcium 9.0 mg/dL (8.7-10.4)
[2024-12-18 06:34] LABS: Glucose 80 mg/dL (74-106)
[2024-12-18 06:35] LABS: BUN/Creatinine Ratio 7.9 (10.0-20.0); Blood Urea Nitrogen < 5 mg/dL (9-23); Carbon Dioxide 19 mmol/L (20-31); Chloride 116 mmol/L (98-107); Potassium 3.0 mmol/L (3.5-5.1)
[2024-12-18 08:30] VITALS: PULSE 57; O2SAT 100
[2024-12-18] MEDS ORDERED: levETIRAcetam 1500 mg/100ml 100 ML IV SCH (10:00)
[2024-12-18] MEDS: levETIRAcetam 1000 mg/100ml 100 ML IV SCH (10:06)
[2024-12-18] MEDS: DOCUSATE SOD 100 MG CAP PO PRN (10:18)
--- NOTE | 2024-12-18 13:28 | DVHPN2 ---
Subjective No altered mentation or seizures. Continued to receive antibiotics for her urinary tract infection. Encouraged activity and oral intake. We will consider DC being Berrios catheter today. Changes from previous H/P or p: No Changes Objective Vitals Vital Signs Date Time Temp Pulse Resp B/P (MAP) Pulse Ox O2 Delivery O2 Flow Rate FiO2 12/18/24 11:32 134/76 12/18/24 10:35 70 17 12/18/24 05:00 98.3 100 98.3 12/17/24 19:51 Room Air* 0 21 Intake/Output Intake and Output 12/18/24 07:00 Intake Total 1078 ml Output Total 2500 ml Balance -1422 ml Intake Oral 718 ml IV Total 360 ml Output Urine Total 2500 ml # Bowel Movements 2 Exam Comfortable in bed alert awake oriented to place and person. HEENT neck supple no JVD. Heart regular rate and rhythm. Lungs fair air movement without rales wheezes. Abdomen soft nontender positive bowel sounds. Extremities no edema positive pulses. Medications Current Medications Medications Dose Ordered Sig/Wilber Route Start Time Stop Time Status Last Admin Dose Admin Sodium Chloride 10 ml Q8HR IV 12/14/24 06:00 12/18/24 05:25 10 ML Acetaminophen/ Hydrocodone Bitart 1 tab Q4HP PRN PO 12/14/24 05:00 12/18/24 02:09 1 TAB Ondansetron HCl 4 mg Q4HP PRN IV 12/14/24 05:00 12/14/24 19:04 4 MG Docusate Sodium 100 mg BIDPRN PRN PO 12/14/24 05:00 12/18/24 10:18 100 MG Acetaminophen 650 mg Q6HP PRN PO 12/14/24 05:00 Nitroglycerin 0.4 mg Q5MINP PRN SL 12/14/24 05:00 Morphine Sulfate 2 mg Q3HPRN PRN IV 12/14/24 11:30 12/18/24 10:05 2 MG Gabapentin 300 mg TID PO 12/14/24 14:00 12/18/24 05:25 300 MG Metoprolol Tartrate 2.5 mg Q6HR PRN IV 12/14/24 15:15 Clonidine HCl 0.1 mg TID PO 12/14/24 22:00 12/17/24 21:16 0.1 MG Lisinopril 20 mg BID PO 12/14/24 22:00 12/18/24 11:32 20 MG Famotidine 20 mg DAILY PO 12/16/24 10:00 12/18/24 10:14 20 MG Hydralazine HCl 25 mg Q8HR PO 12/15/24 12:15 12/17/24 21:16 25 MG Ertapenem 1 gm/ Sodium Chloride 50 ml @ 100 mls/hr DAILY IV 12/16/24 11:15 12/30/24 11:14 12/18/24 11:31 100 MLS/HR Lorazepam 1 mg Q5MINP PRN IV 12/17/24 12:00 Levetiracetam 100 ml @ 400 mls/hr BID IV 12/18/24 10:00 UNV Lorazepam 1 mg Q5MINP PRN IV 12/17/24 23:00 Levetiracetam 500 mg BID PO 12/18/24 22:00 UNV Laboratory Results Laboratory Tests 12/18/24 05:27 Chemistry Test 12/18/24 05:27 Calcium Level 9.0 mg/dL (8.7-10.4) Urinalysis Test 12/14/24 01:00 Urine Color Colorless (Yellow) Urine Clarity Clear (Clear) Urine pH 7.0 (5.0-9.0) Urine Specific [place] 1.009 (1.001-1.035) Urine Protein 1+ (Negative) H Urine Ketones Negative (Negative) Urine Blood Negative /uL (Negative) Urine Nitrite 2+ (Negative) H Urine Bilirubin Negative (Negative) Urine Urobilinogen Normal mg/dL (Negative) Urine Leukocyte Esterase 1+ /uL (Negative) Urine RBC 2 /hpf (0 - 4) Urine Microscopic WBC 11 /HPF (0-5) H Urine Squamous Epithelial Cells None seen /hpf (<5) Urine Bacteria Many /hpf (None Seen) H Urine Mucus Few (None Seen) Urine Glucose Normal mg/dL (Normal) Microbiology Microbiology Date/Time Source Procedure Growth Status 12/15/24 11:49 Stool Stool Culture - Final Complete 12/15/24 11:49 Stool Shiga Toxin I & II - Final Complete 12/14/24 20:40 Blood Blood Culture - Preliminary NO GROWTH AFTER 72 HOURS OF INCUBATION. Resulted 12/14/24 01:00 Voided Urine Urine Culture - Final Escherichia coli - ESBL Complete Assessment/Plan Assessment/Plan We will transition IV Keppra to oral Keppra. Remove Berrios catheter today and encouraged activity and ambulation. We will have social Service consultation to arrange for IV antibiotics daily for 10 days via midline and transferred to longterm facility tomorrow. Otherwise continue rest of supportive care and treatment as she is on. Further clinical management per clinical course. Discussed with the nurse regarding care plan. Plan discussed with: Patient, Other My Orders Orders - TERA COTA MD Procedure Category Date Status Time Pt Request For Service PT 12/18/24 Logged 12:10 Levetiracetam Tablet PHA 12/18/24 Logged (Keppra Tablet) 22:00 * Education Nurse CONS 12/18/24 Transmitted Consult Discontinue Berrios DAVID 12/18/24 In Process Catheter 13:25 Date of Service: Dec 18, 2024 Billing Provider: TERA COTA MD Common Visit Codes: [id number] INP/OBS CARE(MOD) TERA COTA MD Dec 18, 2024 13:28
[2024-12-18 20:00] VITALS: PULSE 51
[2024-12-18 20:09] VITALS: PULSE 53; RESP 16; O2SAT 100
[2024-12-18] MEDS: levETIRAcetam 500 MG TAB PO SCH (20:54)
[2024-12-18 21:00] VITALS: BP 145/67; PULSE 56; RESP 18; TEMP 99.7; O2SAT 100
--- NOTE | 2024-12-18 22:08 | DVHPN2 ---
Progress Note - Dictate Date Seen: Dec 18, 2024 Medical Necessity Reason Pt with a Central, PICC or Fol: No Subjective Patient seen resting comfortably at bedside She continues to complain of epigastric pain Patient also has constipation Patient is known to me from previous hospitalizations She has a history of chronic abdominal pain and I believe she has had at least two EGD and a possibility of one or two colonoscopies in the past vital signs Vital Sign Date Time Temp Pulse Resp B/P (MAP) Pulse Ox O2 Delivery O2 Flow Rate FiO2 12/18/24 21:00 145/65 12/18/24 20:55 56 18 12/18/24 20:09 100 Room Air* 0 21 12/18/24 05:00 98.3 98.3 Total Intake and Output 12/17/24 12/17/24 12/18/24 15:00 23:00 07:00 Intake Total 100 ml 678 ml 300 ml Output Total 900 ml 1600 ml Balance 100 ml -222 ml -1300 ml medications Current Medications Medications Dose Ordered Sig/Wilber Route Start Time Stop Time Status Last Admin Dose Admin Sodium Chloride 10 ml Q8HR IV 12/14/24 06:00 12/18/24 20:55 10 ML Acetaminophen/ Hydrocodone Bitart 1 tab Q4HP PRN PO 12/14/24 05:00 12/18/24 18:12 1 TAB Ondansetron HCl 4 mg Q4HP PRN IV 12/14/24 05:00 12/14/24 19:04 4 MG Docusate Sodium 100 mg BIDPRN PRN PO 12/14/24 05:00 12/18/24 10:18 100 MG Acetaminophen 650 mg Q6HP PRN PO 12/14/24 05:00 Nitroglycerin 0.4 mg Q5MINP PRN SL 12/14/24 05:00 Morphine Sulfate 2 mg Q3HPRN PRN IV 12/14/24 11:30 12/18/24 20:55 2 MG Gabapentin 300 mg TID PO 12/14/24 14:00 12/18/24 20:54 300 MG Metoprolol Tartrate 2.5 mg Q6HR PRN IV 12/14/24 15:15 Clonidine HCl 0.1 mg TID PO 12/14/24 22:00 12/17/24 21:16 0.1 MG Lisinopril 20 mg BID PO 12/14/24 22:00 12/18/24 20:54 20 MG Famotidine 20 mg DAILY PO 12/16/24 10:00 12/18/24 10:14 20 MG Hydralazine HCl 25 mg Q8HR PO 12/15/24 12:15 12/18/24 18:02 25 MG Ertapenem 1 gm/ Sodium Chloride 50 ml @ 100 mls/hr DAILY IV 12/16/24 11:15 12/30/24 11:14 12/18/24 11:31 100 MLS/HR Lorazepam 1 mg Q5MINP PRN IV 12/17/24 12:00 Levetiracetam 100 ml @ 400 mls/hr BID IV 12/18/24 10:00 UNV Lorazepam 1 mg Q5MINP PRN IV 12/17/24 23:00 Levetiracetam 500 mg BID PO 12/18/24 22:00 12/18/24 20:54 500 MG objective General: NAD, AAOX3 Chest: lung morales clear to auscultation Heart: RRR, no murmur Abdomen: non-distended, + periumbilical tenderness to palpation, +BS Ext no c/c/e laboratory and microbiology Laboratory Tests 12/18/24 05:27 Test 12/18/24 05:27 Range/Units Serum Glucose 80 74-106 mg/dL Problems(with codes): (1) Infection due to ESBL-producing Escherichia coli (2) S/P appendectomy (3) Seizure disorder (4) Abdominal pain (5) Nausea and vomiting Prognosis PLAN No active GI bleeding at this time ; hemoglobin stable at 10.2 Continue Protonix 40 mg p.o. twice a day and Carafate 1 g p.o. twice a day Continue supportive care from GI point of view and review previous endoscopy and colonoscopy DC aspirin NSAIDs smoking alcohol Outpatient follow up with GI Services to arrange outpatient elective panendoscopy if clinically required Neurology consult appreciated, Transition IV Keppra to oral Keppra. Remove Berrios catheter today and encouraged activity and ambulation. IV antibiotics daily for 10 days via midline [facility]. Otherwise continue rest of supportive care and treatment as she is on. Further clinical management per clinica Plan discussed with: Patient, Other (Dr Carnes) SILVANO KUMAR MD Dec 18, 2024 22:08
--- NOTE | 2024-12-18 22:16 | DVHPN2 ---
Progress Note - Dictate Date Seen: Dec 18, 2024 Medical Necessity Reason Pt with a Central, PICC or Fol: No Subjective Mr. Lantigua is a 59 years old not sure right-handed female with a history of hypertension, dyslipidemia, stroke with residual right-sided hemiplegia, anxiety, lupus, she was admitted to the [facility] on 12/13/2024 with a chief complaint of seizure and abdominal pain. I have seen and examined the patient, talked to her sitter nurse, she is awake, oriented times 2-3, poor historian No seizure activity Urinalysis, 12/14/2024: WBC: 11, urine leukocyte esterase: 1+, urine nitrate: 2+ Urine culture, 12/14/2024: E coli Blood culture, 12/13/2024: Negative WBC/HB/PLT/MCV, 12/16/24: 7/10.8/219/89.0 CMP, 12/08/2024: Unremarkable HGB A1c, 12/14 25:5 Occul stool blood, 12/15/2024: Positive CT head, 12/17/2024: No intracranial hemorrhage or mass effect. Bilateral cerebral encephalomalacia most pronounced in the left frontal and parietal lobes vital signs Vital Sign Date Time Temp Pulse Resp B/P (MAP) Pulse Ox O2 Delivery O2 Flow Rate FiO2 12/18/24 21:00 145/65 12/18/24 20:55 56 18 12/18/24 20:09 100 Room Air* 0 21 12/18/24 05:00 98.3 98.3 Total Intake and Output 12/17/24 12/17/24 12/18/24 15:00 23:00 07:00 Intake Total 100 ml 678 ml 300 ml Output Total 900 ml 1600 ml Balance 100 ml -222 ml -1300 ml medications Current Medications Medications Dose Ordered Sig/Wilber Route Start Time Stop Time Status Last Admin Dose Admin Sodium Chloride 10 ml Q8HR IV 12/14/24 06:00 12/18/24 20:55 10 ML Acetaminophen/ Hydrocodone Bitart 1 tab Q4HP PRN PO 12/14/24 05:00 12/18/24 18:12 1 TAB Ondansetron HCl 4 mg Q4HP PRN IV 12/14/24 05:00 12/14/24 19:04 4 MG Docusate Sodium 100 mg BIDPRN PRN PO 12/14/24 05:00 12/18/24 10:18 100 MG Acetaminophen 650 mg Q6HP PRN PO 12/14/24 05:00 Nitroglycerin 0.4 mg Q5MINP PRN SL 12/14/24 05:00 Morphine Sulfate 2 mg Q3HPRN PRN IV 12/14/24 11:30 12/18/24 20:55 2 MG Gabapentin 300 mg TID PO 12/14/24 14:00 12/18/24 20:54 300 MG Metoprolol Tartrate 2.5 mg Q6HR PRN IV 12/14/24 15:15 Clonidine HCl 0.1 mg TID PO 12/14/24 22:00 12/17/24 21:16 0.1 MG Lisinopril 20 mg BID PO 12/14/24 22:00 12/18/24 20:54 20 MG Famotidine 20 mg DAILY PO 12/16/24 10:00 12/18/24 10:14 20 MG Hydralazine HCl 25 mg Q8HR PO 12/15/24 12:15 12/18/24 18:02 25 MG Ertapenem 1 gm/ Sodium Chloride 50 ml @ 100 mls/hr DAILY IV 12/16/24 11:15 12/30/24 11:14 12/18/24 11:31 100 MLS/HR Lorazepam 1 mg Q5MINP PRN IV 12/17/24 12:00 Levetiracetam 100 ml @ 400 mls/hr BID IV 12/18/24 10:00 UNV Lorazepam 1 mg Q5MINP PRN IV 12/17/24 23:00 Levetiracetam 500 mg BID PO 12/18/24 22:00 12/18/24 20:54 500 MG Sucralfate 1 gm QID@0600,1130,1700,2200 PO 12/19/24 06:00 UNV objective General: the patient is well developed and nourished. No acute distress. MENTAL STATUS: Awake and alert. Oriented to person, place, SPEECH, LANGUAGE, HIGHER CORTICAL FUNCTION: no aphasia or dysathria. CRANIAL NERVES: Pupils are equal, round and reactive. EOMs full and conjugate. Facial sensation intact in all three divisions bilaterally. Mandibular strength intact. Facial muscles symmetrical and strength intact. SENSATION: Sensation to touch and pinprick is diminished in the right arm than leg MOTOR: Increased muscle tone in the right arm than leg. Muscle strength of the major groups in the left extremities is 5/5. Muscle strength of the major groups in the right extremities is 0/5. There is spasticity/contraction in the right upper extremity REFLEXES: Deep tendon reflexes are symmetrical. No pathological reflexes. CEREBELLAR/COORDINATION: Deferred GAIT/STATION: deferred. laboratory and microbiology Laboratory Tests 12/18/24 05:27 Test 12/18/24 05:27 Range/Units Serum Glucose 80 74-106 mg/dL Problem List Episodic event, ? Partial complex seizure History of grand mal seizure per age of 20s to age of 40s Chronic stroke with residual right hemiplegia Cognitive dysfunction ? Vascular dementia ? Metabolic encephalopathy UTI Anemia GI bleeding Assessment/Plan Monitoring Supportive treatment Contact isolation IV antibiotics Keppra 1500 mg b.i.d. Ativan for seizure breakthrough Lipitor 40 mg daily GI on case Consider antiplatelet/anticoagulation treatment later This medical document was created using an electronic medical record system with [employer] dictation system. Although this document has been carefully reviewed, there may still be some phonetic and typographical errors. These areas are purely typographical due to imperfections of the software programs, and do not reflect any compromise in the patient's medical care. Prognosis poor Plan discussed with: Other NANO MAKI MD Dec 18, 2024 22:16
[2024-12-19 05:00] VITALS: BP 132/51; PULSE 62; RESP 18; TEMP 99.1; O2SAT 97
[2024-12-19] MEDS: SUCRALFATE 1 GM/10 ML ORAL SUSP PO SCH (05:02)
[2024-12-19 08:00] VITALS: PULSE 54; PULSE 62; RESP 16; O2SAT 100
[2024-12-19 09:00] VITALS: BP 140/79; PULSE 56; RESP 18; TEMP 98.7; O2SAT 99
[2024-12-19] MEDS ORDERED: POTASSIUM EFFERVESENT TAB 25 MEQ PO ONE (11:00)
[2024-12-19] MEDS: POTASSIUM EFFERVESENT TAB 25 MEQ PO ONE (12:20)
[2024-12-19 13:00] VITALS: BP 157/80; PULSE 81; RESP 20; TEMP 98.4; O2SAT 99
[2024-12-19 13:22] VITALS: BP 140/79; PULSE 63; RESP 16; TEMP 37.1; O2SAT 98
--- NOTE | 2024-12-22 21:32 | DVHINCON2 ---
Date of service: Dec 17, 2024 Family History: Diabetes mellitus G8 MOTHER FH: CHF (congestive heart failure) G8 MOTHER FH: breast cancer G8 MOTHER Allergies: Coded Allergies: NO KNOWN ALLERGIES (Unverified , 01/29/23) Home Meds Active Scripts Acetaminophen (Acetaminophen) 500 Mg Tab, 500 MG PO Q4HPRN, #30 TAB 0 Refills Prov:TANESHA MCGARRY 08/21/24 Amlodipine Besylate (Amlodipine Besylate) 10 Mg Tab, 1 TAB PO DAILY, #30 TAB 5 Refills Prov:ZULLY ESTEVES NP 05/30/24 Hydrocodone-Acetaminophen (Hydrocodone Bitartrate/AC 10-325 mg) 1 Tab Tab, 1 TAB PO Q6HPRN PRN for 7 Days, #28 TAB Prov:ZULLY ESTEVES NP 05/30/24 Reported Medications Morphine Sulfate (Morphine Sulfate) 15 Mg Tab, 15 MG PO, TAB 05/27/24 Clopidogrel Bisulfate (CLOPIDOGREL) 75 Mg Tab, 75 MG PO DAILY for 30 Days, MG 05/27/24 Gabapentin (Gabapentin) 300 Mg Cap, 300 MG PO for 30 Days, MG 05/27/24 Trazodone Hcl (Trazodone Hcl) 100 Mg Tab, 100 MG PO, MG 05/27/24 Levetiracetam (Keppra) 500 Mg Tab, 3 TAB PO BID, #180 TAB 3 Refills 05/27/24 Discontinued Scripts Ciprofloxacin Hcl (Ciprofloxacin Hcl) 500 Mg Tab, 1 TAB PO BID for 7 Days, #14 TAB 0 Refills Prov:TANESHA MCGARRY 08/21/24 Metronidazole (Flagyl) 500 Mg Tab, 1 TAB PO TID, #30 TAB Prov:ZULLY ESTEVES NP 05/30/24 Cephalexin Monohydrate (Cephalexin) 500 Mg Cap, 1 CAP PO QID, #40 CAP Prov:ZULLY ESTEVES NP 05/30/24 Labs/Diagnostic Data Labs Test 12/18/24 05:27 12/17/24 13:01 12/16/24 05:40 12/15/24 11:49 Range/Units White Blood Count 4.4 # 4.4-10.8 10^3/uL Red Blood Count 3.52 L 4.0-5.20 10^6/uL Hemoglobin 10.3 L 12.2-16.2 g/dL Hematocrit 31.4 L 36.0-46.0 % Mean Corpuscular Volume 89.3 80.0-100.0 fL Mean Corpuscular Hemoglobin 29.4 28.0-32.0 pg Mean Corpuscular Hemoglobin Concent 32.9 32.0-36.0 g/dL Red Cell Distribution Width 15.4 H 11.8-14.3 % Platelet Count 181 140-450 10^3/uL Mean Platelet Volume 9.1 6.9-10.8 fL Neutrophils (%) (Auto) 49.9 37.0-80.0 % Lymphocytes (%) (Auto) 40.1 10.0-50.0 % Monocytes (%) (Auto) 6.9 0.0-12.0 % Eosinophils (%) (Auto) 2.3 0.0-7.0 % Basophils (%) (Auto) 0.8 0.0-2.0 % Neutrophils # (Auto) 2.2 1.6-8.6 10 ^3/uL Lymphocytes # (Auto) 1.8 0.4-5.4 10 ^3/uL Monocytes # (Auto) 0.3 0-1.3 10 ^3/uL Eosinophils # (Auto) 0.1 0-0.8 10 ^3/uL Basophils # (Auto) 0 0-0.2 10 ^3/uL Nucleated Red Blood Cells 0.1 % Sodium Level 143 136-145 mmol/L Potassium Level 3.0 L 3.5-5.1 mmol/L Chloride Level 116 H 98-107 mmol/L Carbon Dioxide Level 19 L 20-31 mmol/L Anion Gap 8 5-15 Blood Urea Nitrogen < 5 L 9-23 mg/dL Creatinine 0.63 0.550-1.02 mg/dL Glomerular Filtration Rate Calc 101 >90 mL/min BUN/Creatinine Ratio 7.9 L 10.0-20.0 Serum Glucose 80 74-106 mg/dL Calcium Level 9.0 8.7-10.4 mg/dL Iron Level 35 L 50-170 ug/dL Total Iron Binding Capacity 203 L 250-425 ug/dL Percent Iron Saturation 17.2 15-50 % Ferritin 101.1 10-291 ng/mL Lactic Acid Level 1.1 0.4-2.0 mmol/L Stool Occult Blood Positive Negative Stool Occult Blood Sample #3 Negative Stool for White Cells None seen Test 12/15/24 07:30 12/14/24 16:03 12/14/24 06:26 12/14/24 01:00 Range/Units Total Bilirubin 0.5 0.2-1.0 mg/dL Aspartate Amino Transferase (AST) 15 13-40 U/L Alanine Aminotransferase (ALT) < 9 7-40 U/L Alkaline Phosphatase 92 46-116 U/L Total Protein 7.2 5.7-8.2 g/dL Albumin 4.1 3.2-4.8 g/dL Hemoglobin A1c 5.0 <5.7 % A1C Ammonia 24 11-32 umol/L POC Glucose 141 H 70-106 mg/dl Urine Color Colorless Yellow Urine Clarity Clear Clear Urine pH 7.0 5.0-9.0 Urine Specific [place] 1.009 1.001-1.035 Urine Protein 1+ H Negative Urine Ketones Negative Negative Urine Blood Negative Negative /uL Urine Nitrite 2+ H Negative Urine Bilirubin Negative Negative Urine Urobilinogen Normal Negative mg/dL Urine Leukocyte Esterase 1+ Negative /uL Urine RBC 2 0 - 4 /hpf Urine Microscopic WBC 11 H 0-5 /HPF Urine Squamous Epithelial Cells None seen <5 /hpf Urine Bacteria Many H None Seen /hpf Urine Mucus Few None Seen Urine Glucose Normal Normal mg/dL Test 12/14/24 00:45 12/13/24 21:34 Range/Units Troponin I High Sensitivity 5 </=34 ng/L Prothrombin Time 10.8 9.3-11.8 sec Prothrombin Time INR 1.02 0.9-1.15 Activated Partial Thromboplast Time 25.1 24.5-34.5 SEC Levetiracetam Level 11.5 10.0-40.0 ug/mL Microbiology Date/Time Source Procedure Growth Status 12/15/24 11:49 Stool Stool Culture - Final Complete 12/15/24 11:49 Stool Shiga Toxin I & II - Final Complete 12/14/24 20:40 Blood Blood Culture - Final NO GROWTH AFTER 5 DAYS OF INCUBATION. Complete 12/14/24 01:00 Voided Urine Urine Culture - Final Escherichia coli - ESBL Complete DEBBI AVALOS MD Dec 22, 2024 21:32
--- NOTE | 2024-12-23 11:42 | DVHDS2 ---
Discharge Summary Date of Admission Dec 14, 2024 at 04:48 Date of Discharge: Dec 19, 2024 Labs/Diagnostic Data: Laboratory Results Test 12/18/24 05:27 12/17/24 13:01 12/16/24 05:40 12/15/24 11:49 White Blood Count 4.4 10^3/uL (4.4-10.8) Red Blood Count 3.52 10^6/uL (4.0-5.20) Hemoglobin 10.3 g/dL (12.2-16.2) Hematocrit 31.4 % (36.0-46.0) Mean Corpuscular Volume 89.3 fL (80.0-100.0) Mean Corpuscular Hemoglobin 29.4 pg (28.0-32.0) Mean Corpuscular Hemoglobin Concent 32.9 g/dL (32.0-36.0) Red Cell Distribution Width 15.4 % (11.8-14.3) Platelet Count 181 10^3/uL (140-450) Mean Platelet Volume 9.1 fL (6.9-10.8) Neutrophils (%) (Auto) 49.9 % (37.0-80.0) Lymphocytes (%) (Auto) 40.1 % (10.0-50.0) Monocytes (%) (Auto) 6.9 % (0.0-12.0) Eosinophils (%) (Auto) 2.3 % (0.0-7.0) Basophils (%) (Auto) 0.8 % (0.0-2.0) Neutrophils # (Auto) 2.2 10 ^3/uL (1.6-8.6) Lymphocytes # (Auto) 1.8 10 ^3/uL (0.4-5.4) Monocytes # (Auto) 0.3 10 ^3/uL (0-1.3) Eosinophils # (Auto) 0.1 10 ^3/uL (0-0.8) Basophils # (Auto) 0 10 ^3/uL (0-0.2) Nucleated Red Blood Cells 0.1 % Sodium Level 143 mmol/L (136-145) Potassium Level 3.0 mmol/L (3.5-5.1) Chloride Level 116 mmol/L (98-107) Carbon Dioxide Level 19 mmol/L (20-31) Anion Gap 8 (5-15) Blood Urea Nitrogen < 5 mg/dL (9-23) Creatinine 0.63 mg/dL (0.550-1.02) Glomerular Filtration Rate Calc 101 mL/min (>90) BUN/Creatinine Ratio 7.9 (10.0-20.0) Serum Glucose 80 mg/dL (74-106) Calcium Level 9.0 mg/dL (8.7-10.4) Iron Level 35 ug/dL (50-170) Total Iron Binding Capacity 203 ug/dL (250-425) Percent Iron Saturation 17.2 % (15-50) Ferritin 101.1 ng/mL (10-291) Lactic Acid Level 1.1 mmol/L (0.4-2.0) Stool Occult Blood Positive (Negative) Stool Occult Blood Sample #3 (Negative) Stool for White Cells None seen Test 12/15/24 07:30 12/14/24 16:03 12/14/24 06:26 12/14/24 01:00 Total Bilirubin 0.5 mg/dL (0.2-1.0) Aspartate Amino Transferase (AST) 15 U/L (13-40) Alanine Aminotransferase (ALT) < 9 U/L (7-40) Alkaline Phosphatase 92 U/L (46-116) Total Protein 7.2 g/dL (5.7-8.2) Albumin 4.1 g/dL (3.2-4.8) Hemoglobin A1c 5.0 % A1C (<5.7) Ammonia 24 umol/L (11-32) POC Glucose 141 mg/dl (70-106) Urine Color Colorless (Yellow) Urine Clarity Clear (Clear) Urine pH 7.0 (5.0-9.0) Urine Specific [place] 1.009 (1.001-1.035) Urine Protein 1+ (Negative) Urine Ketones Negative (Negative) Urine Blood Negative /uL (Negative) Urine Nitrite 2+ (Negative) Urine Bilirubin Negative (Negative) Urine Urobilinogen Normal mg/dL (Negative) Urine Leukocyte Esterase 1+ /uL (Negative) Urine RBC 2 /hpf (0 - 4) Urine Microscopic WBC 11 /HPF (0-5) Urine Squamous Epithelial Cells None seen /hpf (<5) Urine Bacteria Many /hpf (None Seen) Urine Mucus Few (None Seen) Urine Glucose Normal mg/dL (Normal) Test 12/14/24 00:45 12/13/24 21:34 Troponin I High Sensitivity 5 ng/L (</=34) Prothrombin Time 10.8 sec (9.3-11.8) Prothrombin Time INR 1.02 (0.9-1.15) Activated Partial Thromboplast Time 25.1 SEC (24.5-34.5) Levetiracetam Level 11.5 ug/mL (10.0-40.0) Other Laboratory Tests 12/18/24 05:27 Brief Hx & Hospital Course: The patient is a 59-year-old female with past medical history of CVA with right- sided residual deficit, anxiety, hyperlipidemia, seizures, lupus, and hypertension who presented to [facility] ED for evaluation of seizures activity. As reported by EMS, patient had witnessed seizure activity by family lasting a proximally 1 minutes with postictal afterwards. Apparently, patient has been out of Keppra for the past 2 days, experiencing associated abdominal pain, nausea, 2 episodes of vomiting, and diarrhea. Patient was seen and evaluated in the ED, laboratory data shows WBC 8.1, platelets 399, sodium 142, potassium 3.2, BUN eight, creatinine 0.97, glucose 165, calcium 10.8, troponin 8, blood pressure 164/95, heart rate 82, temperature 97.4 F, O2 saturation 99% room air. Patient was started on IV Keppra, please see medication orders section in the computer. On my assessment, patient denied chest pain, headache, no dizziness, no shortness of breaths, no nausea, no vomiting, no fever, no chills. Patient was admitted for further evaluation and medical management. She is admitted and evaluated by treatment counselor Neurology. Patient treated with seizure medications. Urine cultures growing ESBL E coli for which she had midline placed and IV antibiotics being arranged at home. Otherwise while in the hospital she has normal back to baseline status. No further seizures. Therefore it is felt she could be safely discharged home. I have talked with the patient regarding her hospital diagnosis, treatment she received, discharge medications, discharge instructions, discharge follow-up plan of care. She has verbalized understanding of these and agreed with care plan as outlined. Consults/Reason for consult Progress Note - Dictate Date Seen: Dec 18, 2024 Medical Necessity Reason Pt with a Central, PICC or Fol: No Subjective Mr. Lantigua is a 59 years old not sure right-handed female with a history of hypertension, dyslipidemia, stroke with residual right-sided hemiplegia, anxiety, lupus, she was admitted to the [facility] on 12/13/2024 with a chief complaint of seizure and abdominal pain. I have seen and examined the patient, talked to her sitter nurse, she is awake, oriented times 2-3, poor historian No seizure activity Urinalysis, 12/14/2024: WBC: 11, urine leukocyte esterase: 1+, urine nitrate: 2+ Urine culture, 12/14/2024: E coli Blood culture, 12/13/2024: Negative WBC/HB/PLT/MCV, 12/16/24: 7/10.8/219/89.0 CMP, 12/08/2024: Unremarkable HGB A1c, 12/14 25:5 Occul stool blood, 12/15/2024: Positive CT head, 12/17/2024: No intracranial hemorrhage or mass effect. Bilateral cerebral encephalomalacia most pronounced in the left frontal and parietal lobes Problem List Episodic event, ? Partial complex seizure History of grand mal seizure per age of 20s to age of 40s Chronic stroke with residual right hemiplegia Cognitive dysfunction ? Vascular dementia ? Metabolic encephalopathy UTI Anemia GI bleeding Assessment/Plan Monitoring Supportive treatment Contact isolation IV antibiotics Keppra 1500 mg b.i.d. Ativan for seizure breakthrough Lipitor 40 mg daily GI on case Consider antiplatelet/anticoagulation treatment later This medical document was created using an electronic medical record system with triptap dictation system. Although this document has been carefully reviewed, there may still be some phonetic and typographical errors. These areas are purely typographical due to imperfections of the software programs, and do not reflect any compromise in the patient's medical care. Prognosis poor Plan discussed with: Other NANO MAKI MD Dec 18, 2024 22:16 Condition at Discharge: Stable Final Diagnosis/Problems List ESBL E coli urinary tract infection on IV antibiotic for 10 days at home, chronic pain syndrome, opioid dependency, seizure disorder Discharge Disposition: Home with Health Services Discharge Instruct/Medications Diet: Consistent carbohydrate, Cardiac 2g Na,low cholest Activity: No Restrictions, As Tolerated Activity comment: with walker Follow Up/Referral: PCP after 10 days to remove the Midline and follow up for urine infection Medications: home medications per discharge list and home iv antibiotic for 10 days as ordered Continued Medications: Acetaminophen (Acetaminophen) 500 Mg Tab 500 MG PO Q4HPRN, #30 TAB 0 Refills Amlodipine Besylate (Amlodipine Besylate) 10 Mg Tab 1 TAB PO DAILY, #30 TAB 5 Refills Clopidogrel Bisulfate (Clopidogrel) 75 Mg Tab 75 MG PO DAILY for 30 Days, MG Gabapentin (Gabapentin) 300 Mg Cap 300 MG PO for 30 Days, MG Hydrocodone-Acetaminophen (Hydrocodone Bitartrate/AC 10-325 mg) 1 Tab Tab 1 TAB PO Q6HPRN PRN for 7 Days, #28 TAB Levetiracetam (Keppra) 500 Mg Tab 3 TAB PO BID, #180 TAB 3 Refills Morphine Sulfate (Morphine Sulfate) 15 Mg Tab 15 MG PO, TAB Trazodone Hcl (Trazodone Hcl) 100 Mg Tab 100 MG PO, MG Discontinued Medications: Cephalexin Monohydrate (Cephalexin) 500 Mg Cap 1 CAP PO QID, #40 CAP Ciprofloxacin Hcl (Ciprofloxacin Hcl) 500 Mg Tab 1 TAB PO BID for 7 Days, #14 TAB 0 Refills Metronidazole (Flagyl) 500 Mg Tab 1 TAB PO TID, #30 TAB Scheduled Acetaminophen (Acetaminophen), 500 MG PO Q4HPRN Amlodipine Besylate (Amlodipine Besylate), 1 TAB PO DAILY Clopidogrel Bisulfate (Clopidogrel), 75 MG PO DAILY, (Reported) Levetiracetam (Keppra), 3 TAB PO BID, (Reported) Scheduled PRN Hydrocodone-Acetaminophen (Hydrocodone Bitartrate/AC 10-325 mg), 1 TAB PO Q6HPRN PRN Miscellaneous Medications Gabapentin (Gabapentin), 300 MG PO, (Reported) Morphine Sulfate (Morphine Sulfate), 15 MG PO, (Reported) Trazodone Hcl (Trazodone Hcl), 100 MG PO, (Reported) Discontinued Medications Cephalexin Monohydrate (Cephalexin), 1 CAP PO QID Ciprofloxacin Hcl (Ciprofloxacin Hcl), 1 TAB PO BID Metronidazole (Flagyl), 1 TAB PO TID Discharge Statement: "Patient was advised to return to the ER or call 911 if any headaches, dizziness, shortness of breath, chest pain, abdominal pain, bleeding, fevers, or worsening of medical condition. Patient was counseled about treatment plan, medications, possible side effects, patientverbalized understanding. All questions were answered to the best of my ability. This discharge took greater then 30 minutes in planning, reviewing documentation, counseling the patient, and discussing with other team members." ASSESSMENT ASSESSMENT Assessment ESBL E coli urinary tract infection on IV antibiotic for 10 days at home, chronic pain syndrome, opioid dependency, seizure disorder Date of Service: Dec 19, 2024 Billing Provider: TERA COTA MD Common Visit Codes: 01732-JZW/OBS DISCH DAY <30MIN TERA COTA MD Dec 23, 2024 11:42
== END 2024-12-19 14:50 | disposition home health service (06) | DRG 53 ==
LOC: EDBD 20:49 → ER 20:49 → OVERFLOW 12-14 04:48 → TELE-WESTW 12-14 22:57 → TELE-EAST 12-16 19:51 → EAST 12-18 09:37
PROVIDERS: ADMIT Hospitalist; ATTEND Hospitalist
PROC: 05HA33Z Insertion of Infusion Device into Left Brachial Vein, Percutaneous Approach (ICD-10-PCS; principal; 2024-12-16)
PROC: B54NZZA Ultrasonography of Left Upper Extremity Veins, Guidance (ICD-10-PCS; 2024-12-16)
DX: G40.209 Localization-related (focal) (partial) symptomatic epilepsy and epileptic syndromes with complex partial seizures, not intractable, without status epilepticus (principal); F01.50 Vascular dementia, unspecified severity, without behavioral disturbance, psychotic disturbance, mood disturbance, and anxiety; D64.9 Anemia, unspecified; I10 Essential (primary) hypertension; N39.0 Urinary tract infection, site not specified; G89.29 Other chronic pain; F41.9 Anxiety disorder, unspecified; E78.5 Hyperlipidemia, unspecified; K59.00 Constipation, unspecified; Z16.12 Extended spectrum beta lactamase (ESBL) resistance; B96.20 Unspecified Escherichia coli [E. coli] as the cause of diseases classified elsewhere; Z79.899 Other long term (current) drug therapy; Z79.01 Long term (current) use of anticoagulants; Z78.9 Other specified health status; Z83.3 Family history of diabetes mellitus; Z82.49 Family history of ischemic heart disease and other diseases of the circulatory system; Z80.3 Family history of malignant neoplasm of breast; Z84.1 Family history of disorders of kidney and ureter
CPT/HCPCS: 36415; 70450; 71045; 74176; 80048; 80053; 81001; 82140; 82270; 82542; 82728; 82962; 83036; 83540; 83550; 83605; 84484; 85025; 85048; 85610; 85730; 87040; 87045; 87086; 87088; 87186; 87427; 87493; 93005; 96361; 96374; 97110; 97164; 99291; G0378; J1335; J2405